=== PATIENT | female | born 1960 | race Hispanic/Latino ===

== ENCOUNTER 2017-08-22 04:27 | Emergency (ER) | payer OTHER ==
[2017-08-22 05:13] LABS: Basophils % (Auto) 0.4 % (0.0-1.8); Eosinophils % (Auto) 0.7 % (0.0-4.3); Hematocrit 38.6 % (30.3-42.9); Hemoglobin 13.3 gm/dl (10.1-14.3); Lymphocytes # (Auto) 2.2 K/mm3 (1.2-5.4); Lymphocytes % (Auto) 37.1 % (13.4-35.0); Mean Corpuscular HGB Conc 35 % (30-34); Mean Corpuscular Hemoglobin 31 pg (28-32); Mean Corpuscular Volume 90 fl (79-97); Monocytes # (Auto) 0.8 K/mm3 (0.0-0.8); Monocytes % (Auto) 12.6 % (0.0-7.3); Platelet Count 190 K/mm3 (140-440); Red Blood Count 4.27 M/mm3 (3.65-5.03)
[2017-08-22 05:16] LABS: BUN/Creatinine Ratio 17; Blood Urea Nitrogen 10 mg/dL (7-17); Calcium 8.8 mg/dL (8.4-10.2); Hemolysis Index 1
[2017-08-22] MEDS ORDERED: NACL 0.9% 1000 ML 1,000 ML IV ONE (06:46)
--- NOTE | 2017-08-22 07:03 | Emergency Department Report ---
HPI - General Chief Complaint: Medical Clearance Time Seen by Provider: 08/22/17 06:40 - HPI HPI: 57-year-old female presents to the emergency department from reports for evaluation of possible dehydration and possible altered mental status. The patient is at [facility] after being seen at [facility] for evaluation of her diabetes as well as uncontrolled bipolar symptoms. Apparently she was there for some type of delusional disorder and was diagnosed with acute psychosis by the facility. The notes from [facility] say that the patient had a few episodes yesterday where she began hyperventilating and was acting altered. They watched her for a while and did repeated vitals checks but when she continued to have the symptoms she was sent to the emergency department for further evaluation. She does appear to have a history of insulin-dependent diabetes. The patient herself currently says she does not know why she is here. She does appear with some cracked, chapped, dry lips and apparently has not been eating or drinking much recently. ED Past Medical Hx - Past Medical History Previous Medical History?: Yes Hx Diabetes: Yes - Social History Smoking Status: Never Smoker Substance Use Type: Prescribed ED Review of Systems ROS: Stated complaint: ANXIETY Other details as noted in HPI Comment: Unobtainable due to pts medical conditions Physical Exam - Physical Exam Vital Signs: Vital Signs 08/22/17 08/22/17 08/22/17 04:38 05:00 05:12 Temperature 99.4 F 99.4 F Pulse Rate 102 H 99 H Respiratory 19 20 Rate Blood Pressure 140/89 Blood Pressure 147/94 137/91 [Left] O2 Sat by Pulse 100 94 97 Oximetry 08/22/17 06:00 Temperature Pulse Rate Respiratory Rate Blood Pressure 124/84 Blood Pressure [Left] O2 Sat by Pulse 96 Oximetry Physical Exam: GENERAL: The patient is well-developed well-nourished. HENT: Normocephalic. Atraumatic. Patient has slightly dry mucous membranes and has cracked/chapped lips. Otherwise oropharynx is clear. EYES: Extraocular motions are intact. Pupils equal reactive to light bilaterally. NECK: Supple. Trachea is midline. CHEST/LUNGS: Clear to auscultation. There is no respiratory distress noted. HEART/CARDIOVASCULAR: Regular. There is no tachycardia. There is no murmur. ABDOMEN: Abdomen is soft, nontender. Patient has normal bowel sounds. There is no abdominal distention. SKIN: Skin is warm and dry. NEURO: The patient is awake, alert. The patient is cooperative. The patient has no focal neurologic deficits. The patient has normal speech. MUSCULOSKELETAL: There is no tenderness or deformity. There is no evidence of acute injury. ED Course Vital Signs 08/22/17 08/22/17 08/22/17 04:38 05:00 05:12 Temperature 99.4 F 99.4 F Pulse Rate 102 H 99 H Respiratory 19 20 Rate Blood Pressure 140/89 Blood Pressure 147/94 137/91 [Left] O2 Sat by Pulse 100 94 97 Oximetry 08/22/17 06:00 Temperature Pulse Rate Respiratory Rate Blood Pressure 124/84 Blood Pressure [Left] O2 Sat by Pulse 96 Oximetry ED Medical Decision Making - Lab Data Result diagrams: 08/22/17 04:50 08/22/17 04:50 - EKG Data -: EKG Interpreted by Ca EKG shows normal: sinus rhythm, axis, intervals, QRS complexes, ST-T waves Rate: normal - EKG Data When compared to previous EKG there are: previous EKG unavailable Interpretation: normal EKG - Radiology Data Radiology results: report reviewed CT HEAD WITHOUT CONTRAST: HISTORY: Altered mental status. TECHNIQUE: Sequential 2.5mm CT images. COMPARISON: none. FINDINGS: Cerebral Parenchyma: Within normal limits. Cerebellum: Within normal limits. Brainstem: Within normal limits. Ventricles: Normal. Sella: Normal. Extra-axial spaces: Normal. Basal Cisterns: Normal. Intracranial Hemorrhage: None. Midline Shift: None. Calvarium: Normal. Sinuses: Normal. Mastoid Air Cells: Normal. Visualized Orbits: Normal. IMPRESSION: Cranial CT scan within normal limits. Transcribed By: TTR Dictated By: DESTINEE WEISS JR, MD Electronically Authenticated By: DESTINEE WEISS JR, MD Signed Date/Time: 08/22/17 4703 - Medical Decision Making Patient is currently at [facility] for psychiatric treatment but was sent in as she has stopped eating or drinking and there was concerns for dehydration. As mentioned concern for altered mental status, I did a CT scan of the head without contrast that did not show any bleed, shift, mass or any acute process. Patient had some mild hyperglycemia but no signs of diabetic ketoacidosis. Rest the labs were mostly unremarkable. There is only trace ketones in the urine. An IV was placed and she was given a liter of IV fluid. After this the patient was seen drinking and eating a full meal. Vital signs stable throughout her ED course. She appears safe for discharge back to [facility] but they have been encouraged to return to the emergency Department with any worsening of her symptoms or any acute distress. - Differential Diagnosis bipolar, schizophrenia, dementia, dehydration Critical Care Time: No Critical care attestation.: If time is entered above; I have spent that time in minutes in the direct care of this critically ill patient, excluding procedure time. ED Disposition Clinical Impression: History of bipolar disorder, Medical clearance for psychiatric admission, Dehydration Disposition: DC/TX-65 PSY HOSP/PSY UNIT Is pt being admited?: No Condition: Stable Instructions: Dehydration (ED) Additional Instructions: These follow-up with a primary care physician once you are done with [facility]. Return to the emergency Department with any worsening of your symptoms or any acute distress. Increase your oral rehydration. Time of Disposition: 10:26
[2017-08-22 07:48] LABS: Bacteria,Urine 1+ /HPF (Negative); Bilirubin,Urine NEG (Negative); Blood,Urine MOD (Negative); Color,Urine Yellow (Yellow); Mucus,Urine 1+ /HPF; Protein,Urine <15 mg/dL mg/dL (Negative); Urobilinogen,Urine < 2.0 mg/dL (<2.0)
--- NOTE | 2017-08-22 07:53 | Cat Scan Report ---
CT HEAD WITHOUT CONTRAST: HISTORY: Altered mental status. TECHNIQUE: Sequential 2.5mm CT images. COMPARISON: none. FINDINGS: Cerebral Parenchyma: Within normal limits. Cerebellum: Within normal limits. Brainstem: Within normal limits. Ventricles: Normal. Sella: Normal. Extra-axial spaces: Normal. Basal Cisterns: Normal. Intracranial Hemorrhage: None. Midline Shift: None. Calvarium: Normal. Sinuses: Normal. Mastoid Air Cells: Normal. Visualized Orbits: Normal. IMPRESSION: Cranial CT scan within normal limits.
[2017-08-22 08:13] LABS: Amphetamine Screen,Urine PRESUMPTIVE NEGATIVE; Benzodiazepines Screen,Urine PRESUMPTIVE NEGATIVE; Cannabinoid Screen,Urine PRESUMPTIVE NEGATIVE; Cocaine Screen,Urine PRESUMPTIVE NEGATIVE; Methadone Screen,Urine PRESUMPTIVE NEGATIVE; Opiate Screen,Urine PRESUMPTIVE NEGATIVE
[2017-08-22 11:03] VITALS: BP 123/74
== END 2017-08-22 11:00 ==
LOC: ED 04:27
DX: E86.0 Dehydration (principal); F31.9 Bipolar disorder, unspecified; E11.9 Type 2 diabetes mellitus without complications; Z88.0 Allergy status to penicillin; Z79.899 Other long term (current) drug therapy
CPT/HCPCS: 36415; 70450; 80048; 80307; 81001; 82140; 84443; 84484; 85025; 93005; 93010; 96360; 99285; G0480; J7030; 80320

== ENCOUNTER 2018-01-23 17:28 | Inpatient (IN) | payer OTHER ==
--- NOTE | 2018-01-23 18:16 | Emergency Department Report ---
HPI - General Time Seen by Provider: 01/23/18 18:02 - HPI HPI: 57-year-old female presents to the emergency department from [facility] for a general medical evaluation. The patient is nonverbal and the staff member from [facility] says that is how the patient has been since she has been at their facility. Since the patient is nonverbal she is a poor historian. She has been seen here one time in the past when she was also at [facility] at that time, back in August of this year, and she was found to have some type of bipolar disorder and acute psychotic event at that time. It also appears the patient has history of diabetes. The patient was brought in because she was found to have some "knots" to the forehead and some areas of bruising. They think that she had falls prior to coming in to the facility but still wanted her to get checked out. ED Past Medical Hx - Past Medical History Hx Diabetes: Yes - Social History Smoking Status: Never Smoker Substance Use Type: Prescribed ED Review of Systems ROS: Stated complaint: AMS Other details as noted in HPI Comment: Unobtainable due to pts medical conditions Physical Exam - Physical Exam Physical Exam: GENERAL: The patient is well-nourished. HENT: Normocephalic. Atraumatic. Patient has moist mucous membranes. EYES: Extraocular motions are intact. Pupils equal reactive to light bilaterally. NECK: Supple. Trachea is midline. CHEST/LUNGS: Clear to auscultation. There is no respiratory distress noted. HEART/CARDIOVASCULAR: Regular. There is no tachycardia. There is no murmur. ABDOMEN: Abdomen is soft, nontender. Patient has normal bowel sounds. There is no abdominal distention. SKIN: Skin is warm and dry. Patient has a small amount expanding hematoma to the left forehead with a small abrasion over it. No current bleeding. NEURO: Patient is awake but is nonverbal and noncooperative. Withdraws to painful stimuli. MUSCULOSKELETAL: There is no obvious deformity. ED Medical Decision Making - Lab Data Result diagrams: 01/23/18 19:59 01/23/18 19:59 - EKG Data -: EKG Interpreted by Me EKG shows normal: sinus rhythm, axis, intervals (prolonged QT and QTC intervals) , QRS complexes (low-voltage), ST-T waves Rate: normal - EKG Data When compared to previous EKG there are: previous EKG unavailable Interpretation: other (sinus rhythm, prolonged QT and QTC intervals, low voltage. No ST elevation ME) - Radiology Data Radiology results: report reviewed, image reviewed interpreted by me: Chest x-ray does not show any acute process. There are no pleural effusions, obvious pneumonia and there is no pneumothorax. X-ray of the pelvis does not show any obvious fracture or dislocation or any other acute process. EXAM: CT CERVICAL SPINE WO CON HISTORY: fall TECHNIQUE: Axial helical imaging through the cervical spine with sagittal and coronal reformatted images obtained. Comparison: None FINDINGS: There is mild anterolisthesis of C7 on T1 secondary to degenerative facet change at this level. Bony alignment is otherwise normal. The vertebral heights are maintained. There is loss of height of the C6-C7 disc with associated degenerative endplate change. There is endplate osteophyte/disc complex formation at the C5-C6 and C6-C7 levels. There is multiple level degenerative facet change. Visualization detail of portions of the cervical canal is limited by artifact. The there is no evidence of fracture or posttraumatic subluxation Paraspinous soft tissues are unremarkable. IMPRESSION: 1. No evidence of fracture or posttraumatic subluxation of the cervical spine 2. Cervical spondylosis. Transcribed By: ED Dictated By: MESFIN JC MD Electronically Authenticated By: MESFIN JC MD Signed Date/Time: 01/23/181850 EXAM: CT HEAD/BRAIN WO CON HISTORY: fall, head trauma TECHNIQUE: 2.5 millimeter axial images from the skullbase to the vertex. Comparison: None FINDINGS: There is no evidence of an acute intracranial process, intracranial hemorrhage or mass effect. The ventricles are normal size. The visualized portions of the orbits, paranasal and mastoid sinuses are unremarkable. There is no evidence of fracture. IMPRESSION: 1. No evidence of an acute intracranial process, intracranial hemorrhage or mass effect. Transcribed By: ED Dictated By: MESFIN JC MD Electronically Authenticated By: MESFIN JC MD Signed Date/Time: 01/23/181844 - Medical Decision Making Patient was brought in for a medical clearance from her psychiatric facility after she was found to have some abrasions, hematomas and concerns for recent falls. CT of the head without contrast did not show any bleed, shift, mass or any other acute process. CT of the cervical spine also did not show any fracture, subluxation or any acute process. I also checked her out with a chest x-ray and pelvis x-ray which also did not show any fractures, dislocations or any acute process. Labs show hypokalemia significant for a potassium of 2.5. The patient did require some Ativan for some agitation. It is possible that this electrolyte abnormality could be the reason for her recent falls and/or weakness. She will be admitted to the hospital for further evaluation and has been accepted for admission by the hospitalist, Dr. Castillo. - Differential Diagnosis electrolyte abnormality, CVA, TIA, psychosis, dysrhythmia Critical Care Time: No Critical care attestation.: If time is entered above; I have spent that time in minutes in the direct care of this critically ill patient, excluding procedure time. ED Disposition Clinical Impression: Hypokalemia, Generalized weakness Falls Qualifiers: Encounter type: initial encounter Qualified Code(s): W19.XXXA - Unspecified fall, initial encounter Disposition: 09 OP ADMIT IP TO THIS HOSP Is pt being admited?: Yes Condition: Serious
--- NOTE | 2018-01-23 18:45 | Cat Scan Report ---
FINAL REPORT EXAM: CT HEAD/BRAIN WO CON HISTORY: fall, head trauma TECHNIQUE: 2.5 millimeter axial images from the skullbase to the vertex. Comparison: None FINDINGS: There is no evidence of an acute intracranial process, intracranial hemorrhage or mass effect. The ventricles are normal size. The visualized portions of the orbits, paranasal and mastoid sinuses are unremarkable. There is no evidence of fracture. IMPRESSION: 1. No evidence of an acute intracranial process, intracranial hemorrhage or mass effect.
--- NOTE | 2018-01-23 18:51 | Cat Scan Report ---
FINAL REPORT EXAM: CT CERVICAL SPINE WO CON HISTORY: fall TECHNIQUE: Axial helical imaging through the cervical spine with sagittal and coronal reformatted images obtained. Comparison: None FINDINGS: There is mild anterolisthesis of C7 on T1 secondary to degenerative facet change at this level. Bony alignment is otherwise normal. The vertebral heights are maintained. There is loss of height of the C6-C7 disc with associated degenerative endplate change. There is endplate osteophyte/disc complex formation at the C5-C6 and C6-C7 levels. There is multiple level degenerative facet change. Visualization detail of portions of the cervical canal is limited by artifact. The there is no evidence of fracture or posttraumatic subluxation Paraspinous soft tissues are unremarkable. IMPRESSION: 1. No evidence of fracture or posttraumatic subluxation of the cervical spine 2. Cervical spondylosis.
[2018-01-23] MEDS ORDERED: ATIVAN IM STA (19:25)
[2018-01-23] MEDS ORDERED: ATIVAN ONE (19:30)
[2018-01-23 20:16] LABS: Hematocrit 41.6 % (30.3-42.9); Hemoglobin 14.1 gm/dl (10.1-14.3); Mean Corpuscular HGB Conc 34 % (30-34); Mean Corpuscular Hemoglobin 31 pg (28-32); Mean Corpuscular Volume 92 fl (79-97); Platelet Count 253 K/mm3 (140-440)
[2018-01-23 20:28] LABS: BUN/Creatinine Ratio 22; Blood Urea Nitrogen 13 mg/dL (7-17); Calcium 9.7 mg/dL (8.4-10.2); Hemolysis Index 29
--- NOTE | 2018-01-23 20:30 | XRay Report ---
FINAL REPORT EXAM: XR PELVIS 1-2V HISTORY: fall TECHNIQUE: X-ray pelvis, one view Comparison: None FINDINGS: This study is somewhat degraded by obliquity of the image. There is no definite evidence of fracture or subluxation. The left SI joint is not well visualized due to obliquity of the image. There is evidence of degenerative change of the lower lumbar spine. The soft tissues are unremarkable. IMPRESSION: 1. Study somewhat degraded by obliquity of the image. 2. No definite evidence of fracture or subluxation. If there is a persistent clinical concern for fracture, CT imaging would be helpful. 3. Degenerative change lumbar spine.
--- NOTE | 2018-01-23 20:34 | XRay Report ---
FINAL REPORT EXAM: XR CHEST 1V AP HISTORY: fall TECHNIQUE: Frontal portable view of the chest Comparison: None FINDINGS: There is bilateral hypoinflation with crowding of the bronchovascular structures. There is no evidence of focal infiltrate, pneumothorax or pleural fluid collection. The cardiac silhouette is normal size. The thoracic aorta and bony structures are unremarkable. Visualization detail of the thoracic spine is limited. IMPRESSION: 1. No evidence of an acute pulmonary process. 2. Visualization detail of the thoracic spine is limited.
[2018-01-23] MEDS ORDERED: K-DUR PO ONE (20:48)
[2018-01-23] MEDS ORDERED: NACL 0.9% 1000 ML 1,000 ML IV ONE (21:40)
[2018-01-23] MEDS: KCL 10MEQ/100ML 10 MEQ/100 ML BAG IV SCH (22:30)
[2018-01-23] MEDS ORDERED: ZOFRAN IV PRN (22:30)
[2018-01-23] MEDS ORDERED: SODIUM CHLORIDE FLUSH SYRINGE 10 ML IV PRN (22:30)
--- NOTE | 2018-01-23 22:33 | History and Physical Report ---
History of Present Illness Date of examination: 01/23/18 History of present illness: 57-year-old woman was sent for more tablets for evaluation for fall. Patient was agitated in the ER, was given IV Ativan, she is now sedated, history and review of system is unobtainable PAST MEDICAL HISTORY: Unknown PAST SURGICAL HISTORY: Unknown SOCIAL HISTORY: Unknown FAMILY HISTORY: Unknown Medications and Allergies Allergies Allergy/AdvReac Type Severity Reaction Status Date / Time Penicillins Allergy Unknown Verified 08/22/17 04:35 Active Meds: Active Medications Potassium Chloride (Kcl 10meq/100ml) 10 meq in 100 mls @ 100 mls/hr IV Q1H ROCIO Stop: 01/23/18 22:59 Last Admin: 01/23/18 22:30 Dose: 100 mls/hr Sodium Chloride (Nacl 0.9% 1000 Ml) 1,000 mls @ 999 mls/hr IV BOLUS ONE Stop: 01/23/18 22:40 Last Admin: 01/23/18 22:30 Dose: 999 mls/hr Exam - Physical Exam Narrative exam: Gen. appearance: Patient lying in bed, no apparent distress HEENT: Normocephalic, atraumatic, pupils equally round and reactive to light, unable to do extraocular movement, and no sclericterus,. No JVD or thyromegaly or nodule,neck supple, no carotid bruit ,mucous membranes moist, no exudate or erythema Heart: S1, S2, regular rate and rhythm Lungs: Clear bilaterally, breathing comfortable Abdomen: Positive bowel sounds, soft nondistended, no organomegaly Extremity:no edema cyanosis, clubbing Skin: no rash, dry, warm Neuro: Sedated - Constitutional Vitals: Temp Pulse Resp BP Pulse Ox 98.3 F 104 H 20 108/72 98 01/23/18 18:44 01/23/18 18:44 01/23/18 19:39 01/23/18 18:44 01/23/18 19:39 Results - Labs CBC & Chem 7: 01/23/18 19:59 01/23/18 19:59 Labs: Abnormal lab results 01/23/18 01/23/18 Range/Units 19:59 19:59 RDW 13.0 L (13.2-15.2) % Potassium 2.5 L* (3.6-5.0) mmol/L Creatinine 0.6 L (0.7-1.2) mg/dL Glucose 54 L (65-100) mg/dL Total Creatine Kinase 1474 H (30-135) units/L - Imaging and Cardiology CT Scan - head: report reviewed Assessment and Plan C-spine, chest x-ray and pelvic x-ray negative Assessment Rhabdomyolysis Severe hypokalemia Plan Admit to medicine Start IV fluid, repeat potassium DVT prophylaxis
[2018-01-23] MEDS ORDERED: KCL 10MEQ/100ML 10 MEQ/100 ML BAG IV ONE (23:25)
[2018-01-24] MEDS: NACL 0.9% 1000 ML 1,000 ML IV SCH (01:40)
[2018-01-24] MEDS: KCL 10MEQ/100ML 10 MEQ/100 ML BAG IV SCH ×3 (01:46→04:49)
[2018-01-24] MEDS: KCL 20MEQ/100ML 20 MEQ/100 ML BAG IV SCH ×2 (01:50)
[2018-01-24 06:00] LABS: Basophils % (Auto) 0.3 % (0.0-1.8); Eosinophils # (Auto) 0.1 K/mm3 (0.0-0.4); Eosinophils % (Auto) 0.8 % (0.0-4.3); Hematocrit 39.3 % (30.3-42.9); Hemoglobin 13.5 gm/dl (10.1-14.3); Lymphocytes # (Auto) 2.7 K/mm3 (1.2-5.4); Lymphocytes % (Auto) 40.8 % (13.4-35.0); Mean Corpuscular HGB Conc 34 % (30-34); Mean Corpuscular Hemoglobin 31 pg (28-32); Mean Corpuscular Volume 91 fl (79-97); Monocytes # (Auto) 0.7 K/mm3 (0.0-0.8); Monocytes % (Auto) 10.5 % (0.0-7.3); Platelet Count 244 K/mm3 (140-440); Red Blood Count 4.32 M/mm3 (3.65-5.03); Red Cell Distribution Width 12.8 % (13.2-15.2)
[2018-01-24 06:21] LABS: BUN/Creatinine Ratio 26; Blood Urea Nitrogen 13 mg/dL (7-17); Calcium 9.1 mg/dL (8.4-10.2); Hemolysis Index 92
[2018-01-24] MEDS ORDERED: K-DUR PO NR ×2 (09:45→13:45)
--- NOTE | 2018-01-24 09:45 | Progress Note ---
Assessment and Plan Assessment and plan: Questionable fall. Pelvic and chest x-ray negative. Cervical spine and head CT negative. Rhabdomyolysis. Continue IV fluid hydration. Hypokalemia. Replete potassium. History Interval history: No new issues overnight. Hospitalist Physical - Constitutional Vitals: Temp Pulse Resp BP Pulse Ox 97.9 F 97 H 18 114/62 96 01/24/18 07:25 01/24/18 07:25 01/24/18 07:25 01/24/18 07:25 01/24/18 07:25 General appearance: Present: no acute distress, well-nourished - EENT Eyes: Present: PERRL, EOM intact ENT: hearing intact, clear oral mucosa, dentition normal - Neck Neck: Present: supple, normal ROM - Respiratory Respiratory effort: normal Respiratory: bilateral: CTA - Cardiovascular Rhythm: regular Heart Sounds: Present: S1 & S2. Absent: gallop, rub - Extremities Extremities: no ischemia, No edema, Full ROM - Abdominal General gastrointestinal: soft, non-tender, non-distended, normal bowel sounds - Integumentary Integumentary: Present: clear, warm, dry - Neurologic Neurologic: CNII-XII intact, moves all extremities Results - Labs CBC & Chem 7: 01/24/18 05:17 01/24/18 05:17 Labs: Laboratory Last Values WBC 6.7 K/mm3 (4.5-11.0) 01/24/18 05:17 RBC 4.32 M/mm3 (3.65-5.03) 01/24/18 05:17 Hgb 13.5 gm/dl (10.1-14.3) 01/24/18 05:17 Hct 39.3 % (30.3-42.9) 01/24/18 05:17 MCV 91 fl (79-97) 01/24/18 05:17 MCH 31 pg (28-32) 01/24/18 05:17 MCHC 34 % (30-34) 01/24/18 05:17 RDW 12.8 % (13.2-15.2) L 01/24/18 05:17 Plt Count 244 K/mm3 (140-440) 01/24/18 05:17 Lymph % (Auto) 40.8 % (13.4-35.0) H 01/24/18 05:17 [place] % (Auto) 10.5 % (0.0-7.3) H 01/24/18 05:17 Eos % (Auto) 0.8 % (0.0-4.3) 01/24/18 05:17 Baso % (Auto) 0.3 % (0.0-1.8) 01/24/18 05:17 Lymph # 2.7 K/mm3 (1.2-5.4) 01/24/18 05:17 [place] # 0.7 K/mm3 (0.0-0.8) 01/24/18 05:17 Eos # 0.1 K/mm3 (0.0-0.4) 01/24/18 05:17 Baso # 0.0 K/mm3 (0.0-0.1) 01/24/18 05:17 Seg Neutrophils % 47.6 % (40.0-70.0) 01/24/18 05:17 Seg Neutrophils # 3.2 K/mm3 (1.8-7.7) 01/24/18 05:17 Sodium 142 mmol/L (137-145) 01/24/18 05:17 Potassium 3.9 mmol/L (3.6-5.0) D 01/24/18 05:17 Chloride 102.0 mmol/L (98-107) 01/24/18 05:17 Carbon Dioxide 20 mmol/L (22-30) L 01/24/18 05:17 Anion Gap 24 mmol/L 01/24/18 05:17 BUN 13 mg/dL (7-17) 01/24/18 05:17 Creatinine 0.5 mg/dL (0.7-1.2) L 01/24/18 05:17 Estimated GFR > 60 ml/min 01/24/18 05:17 BUN/Creatinine Ratio 26 % 01/24/18 05:17 Glucose 143 mg/dL (65-100) H 01/24/18 05:17 POC Glucose 75 (70-105) 01/23/18 23:40 Calcium 9.1 mg/dL (8.4-10.2) 01/24/18 05:17 Total Creatine Kinase 1474 units/L (30-135) H 01/23/18 19:59 Troponin T < 0.010 ng/mL (0.00-0.029) 01/23/18 20:59
[2018-01-24] MEDS ORDERED: LOVENOX SUB-Q SCH (10:00)
[2018-01-24] MEDS: LOVENOX SUB-Q SCH (10:09)
[2018-01-24 18:11] LABS: BUN/Creatinine Ratio 20; Blood Urea Nitrogen 8 mg/dL (7-17); Calcium 8.3 mg/dL (8.4-10.2); Hemolysis Index 223
[2018-01-25 06:33] LABS: Basophils % (Auto) 0.5 % (0.0-1.8); Eosinophils # (Auto) 0.1 K/mm3 (0.0-0.4); Eosinophils % (Auto) 1.3 % (0.0-4.3); Hematocrit 39.5 % (30.3-42.9); Hemoglobin 13.5 gm/dl (10.1-14.3); Lymphocytes # (Auto) 2.6 K/mm3 (1.2-5.4); Lymphocytes % (Auto) 35.4 % (13.4-35.0); Mean Corpuscular HGB Conc 34 % (30-34); Mean Corpuscular Hemoglobin 31 pg (28-32); Mean Corpuscular Volume 92 fl (79-97); Monocytes # (Auto) 0.7 K/mm3 (0.0-0.8); Monocytes % (Auto) 8.8 % (0.0-7.3); Platelet Count 250 K/mm3 (140-440); Red Blood Count 4.31 M/mm3 (3.65-5.03); Red Cell Distribution Width 12.7 % (13.2-15.2)
[2018-01-25 06:56] LABS: BUN/Creatinine Ratio 15; Blood Urea Nitrogen 6 mg/dL (7-17); Calcium 8.8 mg/dL (8.4-10.2); Hemolysis Index 107
[2018-01-25] MEDS: LOVENOX SUB-Q SCH (10:38)
--- NOTE | 2018-01-25 13:19 | Progress Note ---
Assessment and Plan Assessment and plan: Questionable fall. Pelvic and chest x-ray negative. Cervical spine and head CT negative. Rhabdomyolysis. Continue IV fluid hydration. Hypokalemia. Replete potassium. Psychosis. Await psychiatric evaluation. History Interval history: No new issues overnight. Patient moves all extremities but does not follow commands and has unintelligible speech Hospitalist Physical - Constitutional Vitals: Temp Pulse Resp BP Pulse Ox 97.5 F L 88 22 121/77 97 01/25/18 04:51 01/25/18 04:51 01/24/18 23:16 01/25/18 04:51 01/25/18 04:51 General appearance: Present: no acute distress, well-nourished - EENT Eyes: Present: PERRL, EOM intact ENT: hearing intact, clear oral mucosa, dentition normal - Neck Neck: Present: supple, normal ROM - Respiratory Respiratory effort: normal Respiratory: bilateral: CTA - Cardiovascular Rhythm: regular Heart Sounds: Present: S1 & S2. Absent: gallop, rub - Extremities Extremities: no ischemia, No edema, Full ROM - Abdominal General gastrointestinal: soft, non-tender, non-distended, normal bowel sounds - Integumentary Integumentary: Present: clear, warm, dry - Neurologic Neurologic: CNII-XII intact, moves all extremities Results - Labs CBC & Chem 7: 01/25/18 05:50 01/25/18 05:50 Labs: Laboratory Last Values WBC 7.5 K/mm3 (4.5-11.0) 01/25/18 05:50 RBC 4.31 M/mm3 (3.65-5.03) 01/25/18 05:50 Hgb 13.5 gm/dl (10.1-14.3) 01/25/18 05:50 Hct 39.5 % (30.3-42.9) 01/25/18 05:50 MCV 92 fl (79-97) 01/25/18 05:50 MCH 31 pg (28-32) 01/25/18 05:50 MCHC 34 % (30-34) 01/25/18 05:50 RDW 12.7 % (13.2-15.2) L 01/25/18 05:50 Plt Count 250 K/mm3 (140-440) 01/25/18 05:50 Lymph % (Auto) 35.4 % (13.4-35.0) H 01/25/18 05:50 [place] % (Auto) 8.8 % (0.0-7.3) H 01/25/18 05:50 Eos % (Auto) 1.3 % (0.0-4.3) 01/25/18 05:50 Baso % (Auto) 0.5 % (0.0-1.8) 01/25/18 05:50 Lymph # 2.6 K/mm3 (1.2-5.4) 01/25/18 05:50 [place] # 0.7 K/mm3 (0.0-0.8) 01/25/18 05:50 Eos # 0.1 K/mm3 (0.0-0.4) 01/25/18 05:50 Baso # 0.0 K/mm3 (0.0-0.1) 01/25/18 05:50 Seg Neutrophils % 54.0 % (40.0-70.0) 01/25/18 05:50 Seg Neutrophils # 4.0 K/mm3 (1.8-7.7) 01/25/18 05:50 Sodium 142 mmol/L (137-145) 01/25/18 05:50 Potassium 3.7 mmol/L (3.6-5.0) 01/25/18 05:50 Chloride 104.1 mmol/L (98-107) 01/25/18 05:50 Carbon Dioxide 21 mmol/L (22-30) L 01/25/18 05:50 Anion Gap 21 mmol/L 01/25/18 05:50 BUN 6 mg/dL (7-17) L 01/25/18 05:50 Creatinine 0.4 mg/dL (0.7-1.2) L 01/25/18 05:50 Estimated GFR > 60 ml/min 01/25/18 05:50 BUN/Creatinine Ratio 15 % 01/25/18 05:50 Glucose 150 mg/dL (65-100) H 01/25/18 05:50 POC Glucose 75 (70-105) 01/23/18 23:40 Calcium 8.8 mg/dL (8.4-10.2) 01/25/18 05:50 Total Creatine Kinase 1474 units/L (30-135) H 01/23/18 19:59 Troponin T < 0.010 ng/mL (0.00-0.029) 01/23/18 20:59
--- NOTE | 2018-01-25 13:49 | Consultation ---
History of Present Illness - Reason for Consult Consult date: 01/25/18 Reason for consult: Mental Health Evaluation Requesting physician: BENITO CHUA - Chief Complaint Chief complaint: "The patient has garbled speech" - History of Present Psychiatric Illness 57-year-old female presents to the emergency department from [facility] for a general medical evaluation. Today the patient is in restraints with garbled speech during the assessment. Per her assigned nurse, the patient does eat her meals. The patient is a poor historian at this time. Medications and Allergies Allergies Allergy/AdvReac Type Severity Reaction Status Date / Time Penicillins Allergy Unknown Verified 08/22/17 04:35 Active Meds: Active Medications Acetaminophen (Tylenol) 650 mg PO Q4H PRN PRN Reason: Pain MILD(1-3)/Fever >100.5/MARCUS Enoxaparin Sodium (Lovenox) 40 mg SUB-Q QDAY@1000 ROCIO Last Admin: 01/25/18 10:38 Dose: 40 mg Sodium Chloride (Nacl 0.9% 1000 Ml) 1,000 mls @ 150 mls/hr IV DIRECT [facility] Last Admin: 01/24/18 01:40 Dose: 150 mls/hr Ondansetron HCl (Zofran) 4 mg IV Q8H PRN PRN Reason: Nausea And Vomiting Sodium Chloride (Sodium Chloride Flush Syringe 10 Ml) 10 ml IV BID ROCIO Sodium Chloride (Sodium Chloride Flush Syringe 10 Ml) 10 ml IV PRN PRN PRN Reason: LINE FLUSH Past psychiatric history - Past Medical History Past Medical History: other (Unable to obtain) Past Surgical History: Other (Unable to obtain) - past Psychiatric treatment and history psychiatric treatment history: Aug 2017 the patient was inpatient at [facility]. [facility]. - Social History Social history: other (Unable to obtain) Mental Status Exam - Vital signs Last Vital Signs Temp 97.5 F L 01/25/18 04:51 Pulse 88 01/25/18 13:00 Resp 22 01/24/18 23:16 BP 121/77 01/25/18 04:51 Pulse Ox 97 01/25/18 10:00 - Exam Narrative exam: Unable to complete the MSE because of the patient's condition. Results Result Diagrams: 01/25/18 05:50 01/25/18 05:50 Abnormal lab results 01/24/18 01/25/18 01/25/18 Range/Units 17:34 05:50 05:50 RDW 12.7 L (13.2-15.2) % Lymph % (Auto) 35.4 H (13.4-35.0) % [place] % (Auto) 8.8 H (0.0-7.3) % Sodium 136 L (137-145) mmol/L Carbon Dioxide 19 L 21 L (22-30) mmol/L BUN 6 L (7-17) mg/dL Creatinine 0.4 L 0.4 L (0.7-1.2) mg/dL Glucose 253 H 150 H (65-100) mg/dL Calcium 8.3 L (8.4-10.2) mg/dL All other labs normal. Assessment and Plan Assessment and plan: Impression: Today the patient is in restraints with garbled speech during the assessment. Recommendation/Plan: Gather collateral information and reassess the patient is 24 hours. Start Haldol 2 mg IM Q6hrs PRN for acute agitation. Continue to hydrate the patient.
[2018-01-25] MEDS: HALDOL IM PRN ×2 (16:33→23:40)
[2018-01-25] MEDS: NACL 0.9% 1000 ML 1,000 ML IV SCH (23:39)
[2018-01-25] MEDS: SODIUM CHLORIDE FLUSH SYRINGE 10 ML IV SCH (23:41)
[2018-01-26 07:07] LABS: Basophils % (Auto) 0.5 % (0.0-1.8); Eosinophils # (Auto) 0.1 K/mm3 (0.0-0.4); Eosinophils % (Auto) 1.5 % (0.0-4.3); Hematocrit 39.2 % (30.3-42.9); Hemoglobin 13.5 gm/dl (10.1-14.3); Lymphocytes # (Auto) 3.2 K/mm3 (1.2-5.4); Lymphocytes % (Auto) 49.8 % (13.4-35.0); Mean Corpuscular HGB Conc 35 % (30-34); Mean Corpuscular Hemoglobin 31 pg (28-32); Mean Corpuscular Volume 90 fl (79-97); Monocytes # (Auto) 0.6 K/mm3 (0.0-0.8); Monocytes % (Auto) 9.5 % (0.0-7.3); Platelet Count 254 K/mm3 (140-440); Red Blood Count 4.33 M/mm3 (3.65-5.03)
[2018-01-26] MEDS: NACL 0.9% 1000 ML 1,000 ML IV SCH ×2 (07:12→21:40)
[2018-01-26 07:22] LABS: BUN/Creatinine Ratio 8; Blood Urea Nitrogen 3 mg/dL (7-17); Calcium 9.1 mg/dL (8.4-10.2); Hemolysis Index 41
[2018-01-26] MEDS: LOVENOX SUB-Q SCH (10:48)
[2018-01-26] MEDS: SODIUM CHLORIDE FLUSH SYRINGE 10 ML IV SCH ×2 (10:48→21:42)
--- NOTE | 2018-01-26 13:29 | Progress Note ---
Assessment and Plan Assessment and plan: Psychosis. Psychiatry following. Haldol prn Questionable fall. Pelvic and chest x-ray negative. Cervical spine and head CT negative. Rhabdomyolysis. Continue IV fluid hydration. Hypokalemia. Replete potassium. History Interval history: No new issues overnight. Patient moves all extremities but does not follow commands and has unintelligible speech Hospitalist Physical - Constitutional Vitals: Temp Pulse Resp BP Pulse Ox 98.1 F 110 H 20 160/90 97 01/26/18 05:06 01/26/18 05:06 01/26/18 05:06 01/26/18 05:06 01/26/18 05:06 General appearance: Present: no acute distress, well-nourished - EENT Eyes: Present: PERRL, EOM intact ENT: hearing intact, clear oral mucosa, dentition normal - Neck Neck: Present: supple, normal ROM - Respiratory Respiratory effort: normal Respiratory: bilateral: CTA - Cardiovascular Rhythm: regular Heart Sounds: Present: S1 & S2. Absent: gallop, rub - Extremities Extremities: no ischemia, No edema, Full ROM - Abdominal General gastrointestinal: soft, non-tender, non-distended, normal bowel sounds - Integumentary Integumentary: Present: clear, warm, dry - Neurologic Neurologic: CNII-XII intact, moves all extremities Results - Labs CBC & Chem 7: 01/26/18 05:59 01/26/18 05:59 Labs: Laboratory Last Values WBC 6.5 K/mm3 (4.5-11.0) 01/26/18 05:59 RBC 4.33 M/mm3 (3.65-5.03) 01/26/18 05:59 Hgb 13.5 gm/dl (10.1-14.3) 01/26/18 05:59 Hct 39.2 % (30.3-42.9) 01/26/18 05:59 MCV 90 fl (79-97) 01/26/18 05:59 MCH 31 pg (28-32) 01/26/18 05:59 MCHC 35 % (30-34) H 01/26/18 05:59 RDW 13.0 % (13.2-15.2) L 01/26/18 05:59 Plt Count 254 K/mm3 (140-440) 01/26/18 05:59 Lymph % (Auto) 49.8 % (13.4-35.0) H 01/26/18 05:59 [place] % (Auto) 9.5 % (0.0-7.3) H 01/26/18 05:59 Eos % (Auto) 1.5 % (0.0-4.3) 01/26/18 05:59 Baso % (Auto) 0.5 % (0.0-1.8) 01/26/18 05:59 Lymph # 3.2 K/mm3 (1.2-5.4) 01/26/18 05:59 [place] # 0.6 K/mm3 (0.0-0.8) 01/26/18 05:59 Eos # 0.1 K/mm3 (0.0-0.4) 01/26/18 05:59 Baso # 0.0 K/mm3 (0.0-0.1) 01/26/18 05:59 Seg Neutrophils % 38.7 % (40.0-70.0) L 01/26/18 05:59 Seg Neutrophils # 2.5 K/mm3 (1.8-7.7) 01/26/18 05:59 Sodium 141 mmol/L (137-145) 01/26/18 05:59 Potassium 3.6 mmol/L (3.6-5.0) 01/26/18 05:59 Chloride 103.3 mmol/L (98-107) 01/26/18 05:59 Carbon Dioxide 22 mmol/L (22-30) 01/26/18 05:59 Anion Gap 19 mmol/L 01/26/18 05:59 BUN 3 mg/dL (7-17) L 01/26/18 05:59 Creatinine 0.4 mg/dL (0.7-1.2) L 01/26/18 05:59 Estimated GFR > 60 ml/min 01/26/18 05:59 BUN/Creatinine Ratio 8 % 01/26/18 05:59 Glucose 154 mg/dL (65-100) H 01/26/18 05:59 POC Glucose 75 (70-105) 01/23/18 23:40 Calcium 9.1 mg/dL (8.4-10.2) 01/26/18 05:59 Total Creatine Kinase 1474 units/L (30-135) H 01/23/18 19:59 Troponin T < 0.010 ng/mL (0.00-0.029) 01/23/18 20:59
--- NOTE | 2018-01-26 15:35 | Progress Note ---
Subjective - Reason for Consult Consult date: 01/26/18 Reason for consult: Psychiatry Follow-up - Chief Complaint Chief complaint: "The patient has garbled speech" 57-year-old female presents to the emergency department from [place] for a general medical evaluation. Today the patient is still in restraints with garbled speech during the assessment. She continue to keep her eyes closed tightly. Per the staff, the patient does eat some of her meals with assistance. The patient was given a prn medication for agitation last night. Mental Status Exam - Vital signs Last Vital Signs Temp 98.1 F 01/26/18 05:06 Pulse 110 H 01/26/18 05:06 Resp 20 01/26/18 05:06 BP 160/90 01/26/18 05:06 Pulse Ox 97 01/26/18 05:06 - Exam Narrative exam: MSE: Appearance: in a hospital gown Behavior: the patient's eyes closed tightly Speech: garbled speech Mood: unable to assess Affect: constricted Thought Process: unable to assess Thought Content: unable to assess Motor Activity: in restraints Cognition: awake Insight: unable to assess Judgment: unable to assess Assessment and Plan mpression: Unspecified Psychosis. Today the patient is still in restraints with garbled speech during the assessment. CK 492. DDx: Bipolar DO with psychosis, Schizophrenia Recommendation/Plan: Initiate 1013 with placement to inpatient psy services once medically clear. Start Zyprexa Zydis 5 mg PO HS for psychosis and Ativan 0.5 mg PO BID for anxiety. Continue Haldol 2 mg IM Q6hrs PRN for acute agitation. Attempted to discuss possible metabolic side effects of Zyprexa with patient. Continue to hydrate the patient. D/C restraints when not indicated. Monitor the patient for catatonia.
[2018-01-26] MEDS: ATIVAN PO SCH (21:41)
[2018-01-27 04:14] LABS: Basophils % (Auto) 0.4 % (0.0-1.8); Eosinophils # (Auto) 0.1 K/mm3 (0.0-0.4); Eosinophils % (Auto) 0.8 % (0.0-4.3); Hematocrit 39.4 % (30.3-42.9); Hemoglobin 13.7 gm/dl (10.1-14.3); Lymphocytes # (Auto) 2.4 K/mm3 (1.2-5.4); Lymphocytes % (Auto) 33.3 % (13.4-35.0); Mean Corpuscular HGB Conc 35 % (30-34); Mean Corpuscular Hemoglobin 31 pg (28-32); Mean Corpuscular Volume 89 fl (79-97); Monocytes # (Auto) 0.6 K/mm3 (0.0-0.8); Monocytes % (Auto) 8.9 % (0.0-7.3); Platelet Count 246 K/mm3 (140-440)
[2018-01-27 04:29] LABS: BUN/Creatinine Ratio 10; Blood Urea Nitrogen 4 mg/dL (7-17); Calcium 9.1 mg/dL (8.4-10.2); Hemolysis Index 1
[2018-01-27] MEDS: HALDOL IM PRN ×2 (05:00→12:01)
[2018-01-27] MEDS: NACL 0.9% 1000 ML 1,000 ML IV SCH ×2 (05:50→12:10)
[2018-01-27] MEDS: ATIVAN PO SCH ×2 (09:30→22:00)
[2018-01-27] MEDS: LOVENOX SUB-Q SCH (09:30)
[2018-01-27] MEDS: SODIUM CHLORIDE FLUSH SYRINGE 10 ML IV SCH ×3 (11:59→22:01)
--- NOTE | 2018-01-27 15:44 | Progress Note ---
Assessment and Plan Assessment and plan: Psychosis. Psychiatry following. Haldol prn Questionable fall. Pelvic and chest x-ray negative. Cervical spine and head CT negative. Rhabdomyolysis. Continue IV fluid hydration. Hypokalemia. Replete potassium. History Interval history: No new issues overnight. Patient moves all extremities but does not follow commands and has unintelligible speech Hospitalist Physical - Constitutional Vitals: Temp Pulse Resp BP Pulse Ox 98.7 F 102 H 22 156/96 96 01/27/18 00:32 01/27/18 00:32 01/27/18 00:32 01/27/18 00:32 01/27/18 00:32 General appearance: Present: no acute distress, well-nourished - EENT Eyes: Present: PERRL, EOM intact ENT: hearing intact, clear oral mucosa, dentition normal - Neck Neck: Present: supple, normal ROM - Respiratory Respiratory effort: normal Respiratory: bilateral: CTA - Cardiovascular Rhythm: regular Heart Sounds: Present: S1 & S2. Absent: gallop, rub - Extremities Extremities: no ischemia, No edema, Full ROM - Abdominal General gastrointestinal: soft, non-tender, non-distended, normal bowel sounds - Integumentary Integumentary: Present: clear, warm, dry - Neurologic Neurologic: CNII-XII intact, moves all extremities Results - Labs CBC & Chem 7: 01/27/18 03:55 01/27/18 03:55 Labs: Laboratory Last Values WBC 7.2 K/mm3 (4.5-11.0) 01/27/18 03:55 RBC 4.40 M/mm3 (3.65-5.03) 01/27/18 03:55 Hgb 13.7 gm/dl (10.1-14.3) 01/27/18 03:55 Hct 39.4 % (30.3-42.9) 01/27/18 03:55 MCV 89 fl (79-97) 01/27/18 03:55 MCH 31 pg (28-32) 01/27/18 03:55 MCHC 35 % (30-34) H 01/27/18 03:55 RDW 13.0 % (13.2-15.2) L 01/27/18 03:55 Plt Count 246 K/mm3 (140-440) 01/27/18 03:55 Lymph % (Auto) 33.3 % (13.4-35.0) 01/27/18 03:55 [place] % (Auto) 8.9 % (0.0-7.3) H 01/27/18 03:55 Eos % (Auto) 0.8 % (0.0-4.3) 01/27/18 03:55 Baso % (Auto) 0.4 % (0.0-1.8) 01/27/18 03:55 Lymph # 2.4 K/mm3 (1.2-5.4) 01/27/18 03:55 [place] # 0.6 K/mm3 (0.0-0.8) 01/27/18 03:55 Eos # 0.1 K/mm3 (0.0-0.4) 01/27/18 03:55 Baso # 0.0 K/mm3 (0.0-0.1) 01/27/18 03:55 Seg Neutrophils % 56.6 % (40.0-70.0) 01/27/18 03:55 Seg Neutrophils # 4.1 K/mm3 (1.8-7.7) 01/27/18 03:55 Sodium 140 mmol/L (137-145) 01/27/18 03:55 Potassium 3.1 mmol/L (3.6-5.0) L 01/27/18 03:55 Chloride 100.5 mmol/L (98-107) 01/27/18 03:55 Carbon Dioxide 24 mmol/L (22-30) 01/27/18 03:55 Anion Gap 19 mmol/L 01/27/18 03:55 BUN 4 mg/dL (7-17) L 01/27/18 03:55 Creatinine 0.4 mg/dL (0.7-1.2) L 01/27/18 03:55 Estimated GFR > 60 ml/min 01/27/18 03:55 BUN/Creatinine Ratio 10 % 01/27/18 03:55 Glucose 215 mg/dL (65-100) H 01/27/18 03:55 POC Glucose 75 (70-105) 01/23/18 23:40 Calcium 9.1 mg/dL (8.4-10.2) 01/27/18 03:55 Total Creatine Kinase 492 units/L (30-135) H 01/26/18 16:27 Troponin T < 0.010 ng/mL (0.00-0.029) 01/23/18 20:59
[2018-01-27] MEDS ORDERED: K-DUR PO ONE (16:00)
--- NOTE | 2018-01-27 16:50 | Progress Note ---
Subjective - Reason for Consult Consult date: 01/27/18 Reason for consult: Psychiatric Follow-up Evaluation - Chief Complaint Chief complaint: Patient asleep Patient is a 57-year-old female presents to the emergency department from [place] for a general medical evaluation. Today the patient is still in restraints. Patient is asleep. Although several attempts were made, patient refused to speak with provider. Per sitbarb and RN patient received a PRN earlier for agitation. Per sitter patient was attempting to get out of bed, pulling out IV's, and pulling down medication off IV pole. Per the staff, the patient does eat some of her meals with assistance. Provider unable to fully assess. Mental Status Exam - Vital signs Last Vital Signs Temp 98.7 F 01/27/18 00:32 Pulse 102 H 01/27/18 00:32 Resp 22 01/27/18 00:32 BP 156/96 01/27/18 00:32 Pulse Ox 96 01/27/18 00:32 - Exam Narrative exam: Mental Status Exam General Appearance: Causally Dressed-hospital gown, ADL's are being completed with assistance from staff, in restraints Eye Contact: None Orientation: Unable to Assess Attitude/Behavior: Unable to Assess Sensorium: Unable to Assess Psychomotor & Musculoskeletal Activity: Laying in bed Mood: Unable to Assess Affect: Unable to Assess Speech/Language: Unable to Assess Thought Processes: Unable to Assess Thought Content: Unable to Assess Perception: Unable to Assess Concentration/Attention: Unable to Assess Suicidal Ideations/Plan: Patient denies. Homicidal Ideations/Plan: Patient denies. Judgment: Poor Insight: Poor Assessment and Plan Impression: Unspecified Psychosis. Today the patient is still in restraints with garbled speech during the assessment. CK 492. Patient is asleep. Although several attempts were made, patient refused to awake for the assessment. Per staff patient has been agitated and received a PRN for agitation. DDx: Bipolar DO with psychosis, Schizophrenia Recommendation/Plan: 1. Continue 1013 with placement to inpatient psy services once medically clear. 2. Continue Zyprexa Zydis 5 mg PO HS for psychosis and Ativan 0.5 mg PO BID for anxiety. Continue Haldol 2 mg IM Q6hrs PRN for acute agitation. Attempted to discuss possible metabolic side effects of Zyprexa with patient. Continue to hydrate the patient. D/C restraints when not indicated. Monitor the patient for catatonia. 3. Will continue to monitor mood, psychosis, sleep, appetite, agitation, compliance, and side effects.
[2018-01-28] MEDS: NACL 0.9% 1000 ML 1,000 ML IV SCH ×3 (01:00→15:37)
[2018-01-28] MEDS ORDERED: APRESOLINE IV PRN (06:25)
[2018-01-28 08:27] LABS: BUN/Creatinine Ratio 10; Blood Urea Nitrogen 4 mg/dL (7-17); Calcium 9.4 mg/dL (8.4-10.2); Hemolysis Index 69
[2018-01-28] MEDS: SODIUM CHLORIDE FLUSH SYRINGE 10 ML IV SCH ×3 (09:44→21:34)
[2018-01-28] MEDS: ATIVAN PO SCH ×2 (09:45→21:33)
[2018-01-28] MEDS: LOVENOX SUB-Q SCH (09:46)
--- NOTE | 2018-01-28 14:22 | Progress Note ---
Assessment and Plan Assessment and plan: Psychosis. Psychiatry following. Haldol prn Persistent Tachycardia. ? Etiology. Check EKG. Consider ECHO and cardiology consultation Questionable fall. Pelvic and chest x-ray negative. Cervical spine and head CT negative. Rhabdomyolysis. Continue IV fluid hydration. Hypokalemia. Replete potassium. History Interval history: No new issues overnight. Hospitalist Physical - Constitutional Vitals: Temp Pulse Resp BP Pulse Ox 98.5 F 133 H 20 154/84 93 01/28/18 12:10 01/28/18 12:10 01/28/18 12:10 01/28/18 12:10 01/28/18 12:10 General appearance: Present: no acute distress, well-nourished - EENT Eyes: Present: PERRL, EOM intact ENT: hearing intact, clear oral mucosa, dentition normal - Neck Neck: Present: supple, normal ROM - Respiratory Respiratory effort: normal Respiratory: bilateral: CTA - Cardiovascular Rhythm: regular Heart Sounds: Present: S1 & S2. Absent: gallop, rub - Extremities Extremities: no ischemia, No edema, Full ROM - Abdominal General gastrointestinal: soft, non-tender, non-distended, normal bowel sounds - Integumentary Integumentary: Present: clear, warm, dry - Neurologic Neurologic: CNII-XII intact, moves all extremities Results - Labs CBC & Chem 7: 01/27/18 03:55 01/28/18 07:30 Labs: Laboratory Last Values WBC 7.2 K/mm3 (4.5-11.0) 01/27/18 03:55 RBC 4.40 M/mm3 (3.65-5.03) 01/27/18 03:55 Hgb 13.7 gm/dl (10.1-14.3) 01/27/18 03:55 Hct 39.4 % (30.3-42.9) 01/27/18 03:55 MCV 89 fl (79-97) 01/27/18 03:55 MCH 31 pg (28-32) 01/27/18 03:55 MCHC 35 % (30-34) H 01/27/18 03:55 RDW 13.0 % (13.2-15.2) L 01/27/18 03:55 Plt Count 246 K/mm3 (140-440) 01/27/18 03:55 Lymph % (Auto) 33.3 % (13.4-35.0) 01/27/18 03:55 [place] % (Auto) 8.9 % (0.0-7.3) H 01/27/18 03:55 Eos % (Auto) 0.8 % (0.0-4.3) 01/27/18 03:55 Baso % (Auto) 0.4 % (0.0-1.8) 01/27/18 03:55 Lymph # 2.4 K/mm3 (1.2-5.4) 01/27/18 03:55 [place] # 0.6 K/mm3 (0.0-0.8) 01/27/18 03:55 Eos # 0.1 K/mm3 (0.0-0.4) 01/27/18 03:55 Baso # 0.0 K/mm3 (0.0-0.1) 01/27/18 03:55 Seg Neutrophils % 56.6 % (40.0-70.0) 01/27/18 03:55 Seg Neutrophils # 4.1 K/mm3 (1.8-7.7) 01/27/18 03:55 Sodium 140 mmol/L (137-145) 01/28/18 07:30 Potassium 3.9 mmol/L (3.6-5.0) D 01/28/18 07:30 Chloride 105.8 mmol/L (98-107) 01/28/18 07:30 Carbon Dioxide 17 mmol/L (22-30) L D 01/28/18 07:30 Anion Gap 21 mmol/L 01/28/18 07:30 BUN 4 mg/dL (7-17) L 01/28/18 07:30 Creatinine 0.4 mg/dL (0.7-1.2) L 01/28/18 07:30 Estimated GFR > 60 ml/min 01/28/18 07:30 BUN/Creatinine Ratio 10 % 01/28/18 07:30 Glucose 196 mg/dL (65-100) H 01/28/18 07:30 POC Glucose 75 (70-105) 01/23/18 23:40 Calcium 9.4 mg/dL (8.4-10.2) 01/28/18 07:30 Total Creatine Kinase 492 units/L (30-135) H 01/26/18 16:27 Troponin T < 0.010 ng/mL (0.00-0.029) 01/23/18 20:59
--- NOTE | 2018-01-28 19:53 | Progress Note ---
Subjective - Reason for Consult Consult date: 01/28/18 Reason for consult: follow up - Chief Complaint Chief complaint: mumbling Patient is a 57-year-old female presents to the emergency department from [place] for a general medical evaluation. Today the patient is still in restraints. Patient has her eyes open and mumbles in response. Staff report she was trying to take her IV out. Per the staff, the patient does eat some of her meals with assistance. Unable to assess for additional information. Mental Status Exam - Vital signs Last Vital Signs Temp 98.5 F 01/28/18 19:10 Pulse 117 H 01/28/18 19:10 Resp 20 01/28/18 19:10 BP 149/95 01/28/18 19:10 Pulse Ox 96 01/28/18 19:10 - Exam Narrative exam: General Appearance: Causally Dressed-hospital gown, ADL's are being completed with assistance from staff, in restraints Eye Contact: fair Orientation: Unable to Assess Attitude/Behavior: Unable to Assess Sensorium: Unable to Assess Psychomotor & Musculoskeletal Activity: no abnormal movements observed Mood: Unable to Assess Affect: Unable to Assess Speech/Language: Unable to Assess Thought Processes: Unable to Assess Thought Content: Unable to Assess Perception: Unable to Assess Concentration/Attention: Unable to Assess Suicidal Ideations/Plan: Patient denies. Homicidal Ideations/Plan: Patient denies. Judgment: Poor Insight: Poor Assessment and Plan Impression: Unspecified Psychosis. Today the patient is still in restraints with garbled speech during the assessment. CK 492 on 01/26/2018, down from 1474 on 01/23/2018. DDx: Bipolar DO with psychosis, Schizophrenia Recommendation/Plan: Continue 1013 with placement to inpatient psy services once medically clear. Continue Zyprexa Zydis 5 mg PO HS for psychosis and Ativan 0.5 mg PO BID for anxiety. Continue Haldol 2 mg IM Q6hrs PRN for acute agitation. Attempted to discuss possible metabolic side effects of Zyprexa with patient. Continue to hydrate the patient. D/C restraints when not indicated. Monitor the patient for catatonia.
[2018-01-29] MEDS: ATIVAN PO SCH ×2 (09:27→21:12)
[2018-01-29] MEDS: LOVENOX SUB-Q SCH (09:27)
[2018-01-29] MEDS: SODIUM CHLORIDE FLUSH SYRINGE 10 ML IV SCH ×2 (09:27→21:12)
--- NOTE | 2018-01-29 10:58 | Progress Note ---
Subjective - Reason for Consult Consult date: 01/29/18 Reason for consult: Psychiatry Follow-up - Chief Complaint Chief complaint: "The patient mumbles" Patient is a 57-year-old female presents to the emergency department from [place] for a general medical evaluation. Today the patient is still in restraints, but her eyes are open during the assessment. She continue to mumble when asked questions, possibly responding to some type of stimuli. She did respond to a simple command to squeeze my finger. Per the staff, the patient does eat some of her meals with assistance. No gestures of SI/HI's. Mental Status Exam - Vital signs Last Vital Signs Temp 98.1 F 01/29/18 09:16 Pulse 122 H 01/29/18 09:16 Resp 20 01/29/18 09:16 BP 158/96 01/29/18 09:16 Pulse Ox 90 01/29/18 09:16 - Exam Narrative exam: MSE: Appearance: in a hospital gown Behavior: eyes are open Speech: mumbles Mood: unable to assess Affect: constricted Thought Process: unable to assess Thought Content: unable to assess Motor Activity: in restraints Cognition: awake Insight: unable to assess Judgment: unable to assess Assessment and Plan Impression: Unspecified Psychosis. Today the patient is still in restraints, but her eyes are during the assessment. DDx: Bipolar DO with psychosis, Schizophrenia Recommendation/Plan: Continue 1013 with placement to inpatient psy services once medically clear. Continue Zyprexa Zydis 5 mg PO HS for psychosis, Ativan 0.5 mg PO BID for anxiety, and Haldol 2 mg IM Q6hrs PRN for acute agitation. Attempted to discuss possible metabolic side effects of Zyprexa with patient. Continue to hydrate the patient. D/C restraints when not indicated. Monitor the patient for catatonia.
--- NOTE | 2018-01-29 12:39 | Progress Note ---
Assessment and Plan Assessment and plan: Bipolar/Schizophrenia/Psychosis. Psychiatry following. Haldol prn. Cont 1013 Persistent Tachycardia. ? Etiology. Check EKG. Consider ECHO and cardiology consultation Questionable fall. Pelvic and chest x-ray negative. Cervical spine and head CT negative. Rhabdomyolysis. Continue IV fluid hydration. Hypokalemia. Replete potassium. History Interval history: No new issues overnight. Hospitalist Physical - Constitutional Vitals: Temp Pulse Resp BP Pulse Ox 98.1 F 122 H 20 158/96 90 01/29/18 09:16 01/29/18 09:16 01/29/18 09:16 01/29/18 09:16 01/29/18 09:16 General appearance: Present: no acute distress, well-nourished - EENT Eyes: Present: PERRL, EOM intact ENT: hearing intact, clear oral mucosa, dentition normal - Neck Neck: Present: supple, normal ROM - Respiratory Respiratory effort: normal Respiratory: bilateral: CTA - Cardiovascular Rhythm: regular Heart Sounds: Present: S1 & S2. Absent: gallop, rub - Extremities Extremities: no ischemia, No edema, Full ROM - Abdominal General gastrointestinal: soft, non-tender, non-distended, normal bowel sounds - Integumentary Integumentary: Present: clear, warm, dry - Neurologic Neurologic: CNII-XII intact, moves all extremities Results - Labs CBC & Chem 7: 01/27/18 03:55 01/28/18 07:30 Labs: Laboratory Last Values WBC 7.2 K/mm3 (4.5-11.0) 01/27/18 03:55 RBC 4.40 M/mm3 (3.65-5.03) 01/27/18 03:55 Hgb 13.7 gm/dl (10.1-14.3) 01/27/18 03:55 Hct 39.4 % (30.3-42.9) 01/27/18 03:55 MCV 89 fl (79-97) 01/27/18 03:55 MCH 31 pg (28-32) 01/27/18 03:55 MCHC 35 % (30-34) H 01/27/18 03:55 RDW 13.0 % (13.2-15.2) L 01/27/18 03:55 Plt Count 246 K/mm3 (140-440) 01/27/18 03:55 Lymph % (Auto) 33.3 % (13.4-35.0) 01/27/18 03:55 [place] % (Auto) 8.9 % (0.0-7.3) H 01/27/18 03:55 Eos % (Auto) 0.8 % (0.0-4.3) 01/27/18 03:55 Baso % (Auto) 0.4 % (0.0-1.8) 01/27/18 03:55 Lymph # 2.4 K/mm3 (1.2-5.4) 01/27/18 03:55 [place] # 0.6 K/mm3 (0.0-0.8) 01/27/18 03:55 Eos # 0.1 K/mm3 (0.0-0.4) 01/27/18 03:55 Baso # 0.0 K/mm3 (0.0-0.1) 01/27/18 03:55 Seg Neutrophils % 56.6 % (40.0-70.0) 01/27/18 03:55 Seg Neutrophils # 4.1 K/mm3 (1.8-7.7) 01/27/18 03:55 Sodium 140 mmol/L (137-145) 01/28/18 07:30 Potassium 3.9 mmol/L (3.6-5.0) D 01/28/18 07:30 Chloride 105.8 mmol/L (98-107) 01/28/18 07:30 Carbon Dioxide 17 mmol/L (22-30) L D 01/28/18 07:30 Anion Gap 21 mmol/L 01/28/18 07:30 BUN 4 mg/dL (7-17) L 01/28/18 07:30 Creatinine 0.4 mg/dL (0.7-1.2) L 01/28/18 07:30 Estimated GFR > 60 ml/min 01/28/18 07:30 BUN/Creatinine Ratio 10 % 01/28/18 07:30 Glucose 196 mg/dL (65-100) H 01/28/18 07:30 POC Glucose 75 (70-105) 01/23/18 23:40 Calcium 9.4 mg/dL (8.4-10.2) 01/28/18 07:30 Total Creatine Kinase 492 units/L (30-135) H 01/26/18 16:27 Troponin T < 0.010 ng/mL (0.00-0.029) 01/23/18 20:59
--- NOTE | 2018-01-29 14:23 | Consultation ---
History of Present Illness Consult date: 01/29/18 Consult reason: tachycardia History of present illness: This is a 57 year old woman who was brought from [place] with abrasions on her forehead from a fall. Head CT scan reports no acute intracranial process. A cardiac consultation was requested for abnormal ECG. Patient is nonverbal, unable to obtain history. The ECG is a sinus tachycardia, no acute ischemic changes. She remains afebrile. WBC is normal. Chest x-ray is negative. Sitter at bedside reports the patient has intermittent episodes of agitation. Bilateral wrist restraints are in place. Past History Past Medical History: other (Unable to obtain) Past Surgical History: Other (Unable to obtain) Social history: other (Unable to obtain) Medications and Allergies Allergies Allergy/AdvReac Type Severity Reaction Status Date / Time Penicillins Allergy Unknown Verified 08/22/17 04:35 Active Meds: Active Medications Acetaminophen (Tylenol) 650 mg PO Q4H PRN PRN Reason: Pain MILD(1-3)/Fever >100.5/MARCUS Enoxaparin Sodium (Lovenox) 40 mg SUB-Q QDAY@1000 [facility] Last Admin: 01/29/18 09:27 Dose: 40 mg Haloperidol Lactate (Haldol) 2 mg IM Q6H PRN PRN Reason: Agitation Last Admin: 01/27/18 12:01 Dose: 2 mg Hydralazine HCl (Apresoline) 5 mg IV Q6H PRN PRN Reason: Hypertension Last Admin: 01/28/18 06:47 Dose: 5 mg Sodium Chloride (Nacl 0.9% 1000 Ml) 1,000 mls @ 150 mls/hr IV DIRECT [facility] Last Admin: 01/28/18 15:37 Dose: 150 mls/hr Lorazepam (Ativan) 0.5 mg PO BID [facility] Last Admin: 01/29/18 09:27 Dose: 0.5 mg Olanzapine (Zyprexa Zydis) 5 mg PO HS [facility] Last Admin: 01/28/18 21:34 Dose: 5 mg Ondansetron HCl (Zofran) 4 mg IV Q8H PRN PRN Reason: Nausea And Vomiting Sodium Chloride (Sodium Chloride Flush Syringe 10 Ml) 10 ml IV BID [facility] Last Admin: 01/29/18 09:27 Dose: 10 ml Sodium Chloride (Sodium Chloride Flush Syringe 10 Ml) 10 ml IV PRN PRN PRN Reason: LINE FLUSH Physical Examination Vital Signs Pulse Resp 107 H 27 H 01/23/18 17:43 01/23/18 17:43 General appearance: no acute distress Cardiac: Positive: Tachycardia Results 01/27/18 03:55 01/28/18 07:30 Assessment and Plan Recent fall Hypertension Sinus tachycardia Elevated glucose Psychosis Check a TSH and magnesium. An echocardiogram has been ordered by the primary hospitalist.
[2018-01-30] MEDS: ATIVAN PO SCH ×2 (11:00→22:17)
[2018-01-30] MEDS: LOVENOX SUB-Q SCH (11:00)
[2018-01-30] MEDS: SODIUM CHLORIDE FLUSH SYRINGE 10 ML IV SCH ×2 (11:00→22:17)
--- NOTE | 2018-01-30 13:33 | Progress Note ---
Assessment and Plan - Patient Problems (1) Sinus tachycardia Current Visit: Yes Status: Acute Plan to address problem: Sinus tachycardia since physiologic response to current state of agitation, and requires no specific cardiac workup or management. Sinus rates should return to normal with resolution of acute psychiatric illness. (2) Hypertension Current Visit: Yes Status: Acute Plan to address problem: We'll treat hypertension with a beta joo, metoprolol 50 mg twice a day. Subjective Date of service: 01/30/18 Interval history: The patient has severe psychiatric illness, and is in a state of agitation, on 4 POINT RESTRAINTS. In this setting, she has developed a persistent mild sinus tachycardia, EKG shows no acute ST or T-wave abnormalities. There are no cardiac symptoms, but her blood pressure appears intermittently elevated. Objective Vital Signs Temp Pulse Resp BP BP Pulse Ox 01/29/18 23:42 98.5 F 88 18 108/76 97 01/29/18 20:01 98.6 F 120 H 20 167/96 94 01/29/18 20:00 119 H 01/29/18 14:57 130 H 178/88 - Physical Examination General: Other (agitated state due to psychiatric illness) HEENT: Positive: PERRL Neck: Positive: neck supple Cardiac: Positive: Regular Rhythm Lungs: Positive: Decreased Breath Sounds Neuro: Positive: Grossly Intact Abdomen: Positive: Soft Skin: Positive: Clear Extremities: Absent: edema
--- NOTE | 2018-01-30 14:38 | Progress Note ---
Subjective - Reason for Consult Consult date: 01/30/18 Reason for consult: Psychiatry Follow-up - Chief Complaint Chief complaint: "The patient is " Patient is a 57-year-old female presents to the emergency department from [place] for a general medical evaluation. Today the patient is still in restraints. She continues to mumbles (intermittently). The patient's eyes are open during the assessment. She was observed eating her lunch with assistance. No gestures of SI/HI's. Mental Status Exam - Vital signs Last Vital Signs Temp 98.5 F 01/29/18 23:42 Pulse 88 01/29/18 23:42 Resp 18 01/29/18 23:42 BP 108/76 01/29/18 23:42 Pulse Ox 97 01/29/18 23:42 - Exam Narrative exam: MSE: Appearance: in a hospital gown Behavior: eyes are open Speech: mumbles intermittently Mood: unable to assess Affect: flat Thought Process: unable to assess Thought Content: unable to assess Motor Activity: in restraints Cognition: awake Insight: unable to assess Judgment: unable to assess Assessment and Plan Impression: Unspecified Psychosis. Today the patient is still in restraints, but her eyes are open during the assessment. DDx: Bipolar DO with psychosis, Schizophrenia Recommendation/Plan: Continue 1013 with placement to inpatient psy services once medically clear. Increase Zyprexa Zydis to 10 mg PO HS for psychosis, and continue Ativan 0.5 mg PO BID for anxiety, and Haldol 2 mg IM Q6hrs PRN for acute agitation. Attempted to discuss possible metabolic side effects of Zyprexa with patient. Continue to hydrate the patient. D/C restraints when not indicated. Monitor the patient for catatonia.
[2018-01-30] MEDS: LOPRESSOR PO SCH ×2 (17:00→22:18)
--- NOTE | 2018-01-30 17:20 | Progress Note ---
Assessment and Plan Assessment and plan: Bipolar/Schizophrenia/Psychosis. Psychiatry following. Haldol prn. Cont 1013 per Psych Sinus Tachycardia. Etiology physiologic response secondary to agitation Questionable fall. Pelvic and chest x-ray negative. Cervical spine and head CT negative. Rhabdomyolysis. Continue IV fluid hydration. Hypokalemia. Replete potassium. Disposition Pt is medically clear for psych discharge History Interval history: No new issues overnight. Hospitalist Physical - Constitutional Vitals: Temp Pulse Resp BP Pulse Ox 98.2 F 111 H 18 159/89 90 01/30/18 13:19 01/30/18 16:34 01/30/18 13:19 01/30/18 13:19 01/30/18 16:34 General appearance: Present: no acute distress - EENT Eyes: Present: PERRL, EOM intact ENT: hearing intact, clear oral mucosa, dentition normal - Neck Neck: Present: supple, normal ROM - Respiratory Respiratory effort: normal Respiratory: bilateral: CTA - Cardiovascular Rhythm: regular Heart Sounds: Present: S1 & S2. Absent: gallop, rub - Extremities Extremities: no ischemia, No edema, Full ROM - Abdominal General gastrointestinal: soft, non-tender, non-distended, normal bowel sounds - Integumentary Integumentary: Present: clear, warm, dry - Neurologic Neurologic: CNII-XII intact, moves all extremities Results - Labs CBC & Chem 7: 01/27/18 03:55 01/28/18 07:30 Labs: Laboratory Last Values WBC 7.2 K/mm3 (4.5-11.0) 01/27/18 03:55 RBC 4.40 M/mm3 (3.65-5.03) 01/27/18 03:55 Hgb 13.7 gm/dl (10.1-14.3) 01/27/18 03:55 Hct 39.4 % (30.3-42.9) 01/27/18 03:55 MCV 89 fl (79-97) 01/27/18 03:55 MCH 31 pg (28-32) 01/27/18 03:55 MCHC 35 % (30-34) H 01/27/18 03:55 RDW 13.0 % (13.2-15.2) L 01/27/18 03:55 Plt Count 246 K/mm3 (140-440) 01/27/18 03:55 Lymph % (Auto) 33.3 % (13.4-35.0) 01/27/18 03:55 [place] % (Auto) 8.9 % (0.0-7.3) H 01/27/18 03:55 Eos % (Auto) 0.8 % (0.0-4.3) 01/27/18 03:55 Baso % (Auto) 0.4 % (0.0-1.8) 01/27/18 03:55 Lymph # 2.4 K/mm3 (1.2-5.4) 01/27/18 03:55 [place] # 0.6 K/mm3 (0.0-0.8) 01/27/18 03:55 Eos # 0.1 K/mm3 (0.0-0.4) 01/27/18 03:55 Baso # 0.0 K/mm3 (0.0-0.1) 01/27/18 03:55 Seg Neutrophils % 56.6 % (40.0-70.0) 01/27/18 03:55 Seg Neutrophils # 4.1 K/mm3 (1.8-7.7) 01/27/18 03:55 Sodium 140 mmol/L (137-145) 01/28/18 07:30 Potassium 3.9 mmol/L (3.6-5.0) D 01/28/18 07:30 Chloride 105.8 mmol/L (98-107) 01/28/18 07:30 Carbon Dioxide 17 mmol/L (22-30) L D 01/28/18 07:30 Anion Gap 21 mmol/L 01/28/18 07:30 BUN 4 mg/dL (7-17) L 01/28/18 07:30 Creatinine 0.4 mg/dL (0.7-1.2) L 01/28/18 07:30 Estimated GFR > 60 ml/min 01/28/18 07:30 BUN/Creatinine Ratio 10 % 01/28/18 07:30 Glucose 196 mg/dL (65-100) H 01/28/18 07:30 POC Glucose 75 (70-105) 01/23/18 23:40 Calcium 9.4 mg/dL (8.4-10.2) 01/28/18 07:30 Magnesium 1.50 mg/dL (1.7-2.3) L 01/29/18 16:26 Total Creatine Kinase 492 units/L (30-135) H 01/26/18 16:27 Troponin T < 0.010 ng/mL (0.00-0.029) 01/23/18 20:59 TSH 3.280 mlU/mL (0.270-4.200) 01/29/18 16:26
[2018-01-31] MEDS: TYLENOL PO PRN (07:12)
[2018-01-31] MEDS: SODIUM CHLORIDE FLUSH SYRINGE 10 ML IV SCH ×2 (10:00→22:16)
[2018-01-31] MEDS: LOPRESSOR PO SCH ×2 (10:00→22:15)
[2018-01-31] MEDS: ATIVAN PO SCH ×2 (10:00→22:16)
[2018-01-31] MEDS: LOVENOX SUB-Q SCH (10:00)
[2018-01-31 10:20] LABS: BUN/Creatinine Ratio 28; Blood Urea Nitrogen 11 mg/dL (7-17); Calcium 9.8 mg/dL (8.4-10.2); Hemolysis Index 5
--- NOTE | 2018-01-31 11:06 | Progress Note ---
Assessment and Plan Recent fall Hypertension Sinus tachycardia normal TSH a physiologic response to current state of agitation, and requires no specific cardiac workup or management. Sinus rates should return to normal with resolution of acute psychiatric illness. Elevated glucose Psychosis Normal left ventricular systolic function, EF 55% by echo this admission. Conservative cardiac management. Subjective Date of service: 01/31/18 Interval history: Patient is resting in bed comfortably. Mild sinus tachycardia, rate ranging from 90-110 on telemetry. Objective Vital Signs Temp Pulse Resp BP Pulse Ox 01/31/18 04:00 67 01/30/18 17:00 79 148/89 01/30/18 16:34 111 H 90 01/30/18 13:19 98.2 F 126 H 18 159/89 94 - Physical Examination General: No Apparent Distress HEENT: Positive: PERRL Cardiac: Positive: Reg Rate and Rhythm Neuro: Positive: Grossly Intact Extremities: Absent: edema - Labs and Meds Comprehensive Metabolic Panel 01/31/18 Range/Units 09:38 Sodium 138 (137-145) mmol/L Potassium 3.6 (3.6-5.0) mmol/L Chloride 102.3 (98-107) mmol/L Carbon Dioxide 24 D (22-30) mmol/L BUN 11 (7-17) mg/dL Creatinine 0.4 L (0.7-1.2) mg/dL Glucose 252 H (65-100) mg/dL Calcium 9.8 (8.4-10.2) mg/dL
--- NOTE | 2018-01-31 11:33 | Progress Note ---
Assessment and Plan Assessment and plan: Psychosis secondary to Bipolar/Schizophrenia. Psychiatry following. Haldol prn. Cont 1013 per Psych Sinus Tachycardia. Etiology physiologic response secondary to agitation. Improved. Questionable fall. Pelvic and chest x-ray negative. Cervical spine and head CT negative. Rhabdomyolysis, resolved. Hypokalemia and hypomagnesemia, resolved. Disposition: Patient is medically stable for discharge to inpatient psych. History Interval history: Patient seen today. She refuses to communicate. No reported overnight issues. Hospitalist Physical - Constitutional Vitals: Temp Pulse Resp BP Pulse Ox 98.2 F 67 18 148/89 90 01/30/18 13:19 01/31/18 04:00 01/30/18 13:19 01/30/18 17:00 01/30/18 16:34 General appearance: Present: no acute distress - EENT Eyes: Present: PERRL, EOM intact ENT: clear oral mucosa - Neck Neck: Present: supple - Respiratory Respiratory effort: normal Respiratory: bilateral: CTA - Cardiovascular Rhythm: regular Heart Sounds: Present: S1 & S2 - Extremities Extremities: No edema - Abdominal General gastrointestinal: soft, non-tender, normal bowel sounds - Neurologic Neurologic: CNII-XII intact Results - Labs CBC & Chem 7: 01/27/18 03:55 01/31/18 09:38 Labs: Laboratory Last Values WBC 7.2 K/mm3 (4.5-11.0) 01/27/18 03:55 RBC 4.40 M/mm3 (3.65-5.03) 01/27/18 03:55 Hgb 13.7 gm/dl (10.1-14.3) 01/27/18 03:55 Hct 39.4 % (30.3-42.9) 01/27/18 03:55 MCV 89 fl (79-97) 01/27/18 03:55 MCH 31 pg (28-32) 01/27/18 03:55 MCHC 35 % (30-34) H 01/27/18 03:55 RDW 13.0 % (13.2-15.2) L 01/27/18 03:55 Plt Count 246 K/mm3 (140-440) 01/27/18 03:55 Lymph % (Auto) 33.3 % (13.4-35.0) 01/27/18 03:55 [place] % (Auto) 8.9 % (0.0-7.3) H 01/27/18 03:55 Eos % (Auto) 0.8 % (0.0-4.3) 01/27/18 03:55 Baso % (Auto) 0.4 % (0.0-1.8) 01/27/18 03:55 Lymph # 2.4 K/mm3 (1.2-5.4) 01/27/18 03:55 [place] # 0.6 K/mm3 (0.0-0.8) 01/27/18 03:55 Eos # 0.1 K/mm3 (0.0-0.4) 01/27/18 03:55 Baso # 0.0 K/mm3 (0.0-0.1) 01/27/18 03:55 Seg Neutrophils % 56.6 % (40.0-70.0) 01/27/18 03:55 Seg Neutrophils # 4.1 K/mm3 (1.8-7.7) 01/27/18 03:55 Sodium 138 mmol/L (137-145) 01/31/18 09:38 Potassium 3.6 mmol/L (3.6-5.0) 01/31/18 09:38 Chloride 102.3 mmol/L (98-107) 01/31/18 09:38 Carbon Dioxide 24 mmol/L (22-30) D 01/31/18 09:38 Anion Gap 15 mmol/L 01/31/18 09:38 BUN 11 mg/dL (7-17) 01/31/18 09:38 Creatinine 0.4 mg/dL (0.7-1.2) L 01/31/18 09:38 Estimated GFR > 60 ml/min 01/31/18 09:38 BUN/Creatinine Ratio 28 % 01/31/18 09:38 Glucose 252 mg/dL (65-100) H 01/31/18 09:38 POC Glucose 75 (70-105) 01/23/18 23:40 Calcium 9.8 mg/dL (8.4-10.2) 01/31/18 09:38 Magnesium 1.70 mg/dL (1.7-2.3) 01/31/18 09:38 Total Creatine Kinase 492 units/L (30-135) H 01/26/18 16:27 Troponin T < 0.010 ng/mL (0.00-0.029) 01/23/18 20:59 TSH 3.280 mlU/mL (0.270-4.200) 01/29/18 16:26
[2018-01-31] MEDS ORDERED: K-DUR PO SCH (14:00)
--- NOTE | 2018-01-31 14:02 | Progress Note ---
Subjective - Reason for Consult Consult date: 01/31/18 Reason for consult: Psychiatric Follow-up Evaluation - Chief Complaint Chief complaint: Patient speech is difficult to understand Patient is a 57-year-old female presents to the emergency department from [place] for a general medical evaluation. Today the patient is still not in restraints. She is seen with her legs hanging on the hospital bed rails. Sitter is at bedside. She continues to mumbles (intermittently). The patient's eyes are open during the assessment. She appears restless. Per sitter patient removed her IV access. Per sitter patient is eating and sleeping. No gestures of SI/HI's. Mental Status Exam - Vital signs Last Vital Signs Temp 98.2 F 01/30/18 13:19 Pulse 67 01/31/18 04:00 Resp 18 01/30/18 13:19 BP 148/89 01/30/18 17:00 Pulse Ox 90 01/30/18 16:34 - Exam Narrative exam: Mental Status Exam General Appearance: Causally Dressed-hospital gown, disheveled Eye Contact: Poor Orientation: Alert and oriented x 1 ( person) Attitude/Behavior: Unable to Assess Sensorium: Distracted Psychomotor & Musculoskeletal Activity: Laying in bed Mood: Unable to Assess Affect: Unable to Assess Speech/Language: Mumbles Thought Processes: Unable to Assess Thought Content: Impoverished Perception: Unable to Assess Concentration/Attention: Impaired Suicidal Ideations/Plan: " No" Homicidal Ideations/Plan: "No" Judgment: Poor Insight: Poor Assessment and Plan Impression: Unspecified Psychosis. Today the patient is not in restraints, but her eyes are open during the assessment. She appears restless. Patient speech is difficult to understand because patient mumbles. DDx: Bipolar DO with psychosis, Schizophrenia Recommendation/Plan: 1. Continue 1013 with placement to inpatient psy services once medically clear. 2. Continue Zyprexa Zydis to 10 mg PO HS for psychosis, and continue Ativan 0.5 mg PO BID for anxiety, and Haldol 2 mg IM Q6hrs PRN for acute agitation. Attempted to discuss possible metabolic side effects of Zyprexa with patient. 3. Continue to hydrate the patient. D/C restraints when not indicated. Monitor the patient for catatonia. 4. Will monitor mood, psychosis, sleep, appetite, compliance, and side effects.
[2018-01-31] MEDS: K-DUR PO SCH (22:16)
--- NOTE | 2018-02-01 10:19 | Progress Note ---
Subjective - Reason for Consult Consult date: 02/01/18 Reason for consult: Psychiatry Follow-up - Chief Complaint Chief complaint: The patient still mumbles" Patient is a 57-year-old female presents to the emergency department from [place] for a general medical evaluation. Today the patient is not in restraints, but she still mumbles during the assessment. The patient's eyes are open. She appears restless. No gestures of SI/HI's. Mental Status Exam - Vital signs Last Vital Signs Temp 97.4 F L 02/01/18 07:28 Pulse 74 02/01/18 07:28 Resp 16 02/01/18 07:28 BP 117/69 02/01/18 07:28 Pulse Ox 94 02/01/18 07:28 - Exam Narrative exam: MSE: Appearance: in a hospital gown Behavior: eyes are open Speech: mumbles intermittently Mood: unable to assess Affect: flat Thought Process: unable to assess Thought Content: unable to assess Motor Activity: in restraints Cognition: awake Insight: unable to assess Judgment: unable to assess Assessment and Plan Impression: Unspecified Psychosis. Today the patient is awake, but still mumbles during the assessment. She isn't in restraints DDx: Bipolar DO with psychosis, Schizophrenia Recommendation/Plan: Continue 1013 with placement to inpatient psy services once medically clear. Continue Zyprexa Zydis 10 mg PO HS for psychosis, and continue Ativan 0.5 mg PO BID for anxiety, and Haldol 2 mg IM Q6hrs PRN for acute agitation. Attempted to discuss possible metabolic side effects of Zyprexa with patient. Continue to hydrate the patient. D/C restraints when not indicated. Monitor the patient for catatonia.
--- NOTE | 2018-02-01 11:06 | Progress Note ---
Assessment and Plan Recent fall Hypertension Sinus tachycardia normal TSH a physiologic response to current state of agitation, and requires no specific cardiac workup or management. Sinus rates should return to normal with resolution of acute psychiatric illness. Elevated glucose Psychosis Normal left ventricular systolic function, EF 55% by echo this admission. Conservative cardiac management. Subjective Date of service: 02/01/18 Interval history: Patient is resting in bed comfortably. Stable sinus rhythm on telemetry. Objective Vital Signs Temp Pulse Resp BP Pulse Ox 02/01/18 07:28 97.4 F L 74 16 117/69 94 01/31/18 22:15 144/111 01/31/18 16:00 67 - Physical Examination General: No Apparent Distress HEENT: Positive: PERRL Cardiac: Positive: Reg Rate and Rhythm Neuro: Positive: Grossly Intact Extremities: Absent: edema
[2018-02-01] MEDS: ATIVAN PO SCH ×2 (11:18→22:40)
[2018-02-01] MEDS: K-DUR PO SCH (11:19)
[2018-02-01] MEDS: LOVENOX SUB-Q SCH (11:19)
--- NOTE | 2018-02-01 11:19 | Progress Note ---
Assessment and Plan Assessment and plan: Psychosis secondary to Bipolar/Schizophrenia. Psychiatry following. Haldol prn. Cont 1013 per Psych Sinus Tachycardia. Etiology physiologic response secondary to agitation. Improved. Questionable fall. Pelvic and chest x-ray negative. Cervical spine and head CT negative. Rhabdomyolysis, resolved. Hypokalemia and hypomagnesemia, resolved s/p repletion. Hyperglycemia: will check HBAIC level Acute metabolic acidosis, resolved Disposition: Patient is medically stable for discharge to inpatient psych facility. History Interval history: Patient seen today. She is unable to communicate appropriately. No reported overnight issues. Hospitalist Physical - Constitutional Vitals: Temp Pulse Resp BP Pulse Ox 97.4 F L 74 16 117/69 94 02/01/18 07:28 02/01/18 07:28 02/01/18 07:28 02/01/18 07:28 02/01/18 07:28 General appearance: Present: no acute distress - EENT Eyes: Present: PERRL, EOM intact ENT: clear oral mucosa - Neck Neck: Present: supple, normal ROM - Respiratory Respiratory effort: normal Respiratory: bilateral: CTA - Cardiovascular Rhythm: regular Heart Sounds: Present: S1 & S2 - Extremities Extremities: No edema - Abdominal General gastrointestinal: soft, non-tender, normal bowel sounds - Neurologic Neurologic: CNII-XII intact Results - Labs CBC & Chem 7: 01/27/18 03:55 01/31/18 09:38 Labs: Laboratory Last Values WBC 7.2 K/mm3 (4.5-11.0) 01/27/18 03:55 RBC 4.40 M/mm3 (3.65-5.03) 01/27/18 03:55 Hgb 13.7 gm/dl (10.1-14.3) 01/27/18 03:55 Hct 39.4 % (30.3-42.9) 01/27/18 03:55 MCV 89 fl (79-97) 01/27/18 03:55 MCH 31 pg (28-32) 01/27/18 03:55 MCHC 35 % (30-34) H 01/27/18 03:55 RDW 13.0 % (13.2-15.2) L 01/27/18 03:55 Plt Count 246 K/mm3 (140-440) 01/27/18 03:55 Lymph % (Auto) 33.3 % (13.4-35.0) 01/27/18 03:55 [place] % (Auto) 8.9 % (0.0-7.3) H 01/27/18 03:55 Eos % (Auto) 0.8 % (0.0-4.3) 01/27/18 03:55 Baso % (Auto) 0.4 % (0.0-1.8) 01/27/18 03:55 Lymph # 2.4 K/mm3 (1.2-5.4) 01/27/18 03:55 [place] # 0.6 K/mm3 (0.0-0.8) 01/27/18 03:55 Eos # 0.1 K/mm3 (0.0-0.4) 01/27/18 03:55 Baso # 0.0 K/mm3 (0.0-0.1) 01/27/18 03:55 Seg Neutrophils % 56.6 % (40.0-70.0) 01/27/18 03:55 Seg Neutrophils # 4.1 K/mm3 (1.8-7.7) 01/27/18 03:55 Sodium 138 mmol/L (137-145) 01/31/18 09:38 Potassium 3.6 mmol/L (3.6-5.0) 01/31/18 09:38 Chloride 102.3 mmol/L (98-107) 01/31/18 09:38 Carbon Dioxide 24 mmol/L (22-30) D 01/31/18 09:38 Anion Gap 15 mmol/L 01/31/18 09:38 BUN 11 mg/dL (7-17) 01/31/18 09:38 Creatinine 0.4 mg/dL (0.7-1.2) L 01/31/18 09:38 Estimated GFR > 60 ml/min 01/31/18 09:38 BUN/Creatinine Ratio 28 % 01/31/18 09:38 Glucose 252 mg/dL (65-100) H 01/31/18 09:38 POC Glucose 75 (70-105) 01/23/18 23:40 Calcium 9.8 mg/dL (8.4-10.2) 01/31/18 09:38 Magnesium 1.70 mg/dL (1.7-2.3) 01/31/18 09:38 Total Creatine Kinase 492 units/L (30-135) H 01/26/18 16:27 Troponin T < 0.010 ng/mL (0.00-0.029) 01/23/18 20:59 TSH 3.280 mlU/mL (0.270-4.200) 01/29/18 16:26
[2018-02-01] MEDS: LOPRESSOR PO SCH ×2 (11:20→22:41)
[2018-02-01] MEDS: SODIUM CHLORIDE FLUSH SYRINGE 10 ML IV SCH ×2 (11:20→22:41)
[2018-02-02] MEDS ORDERED: D50W (25GM) Syringe IV PRN (09:36)
[2018-02-02] MEDS: HALDOL IM PRN (09:39)
[2018-02-02] MEDS: K-DUR PO SCH (09:39)
[2018-02-02] MEDS: ATIVAN PO SCH ×2 (09:39→22:40)
[2018-02-02] MEDS: SODIUM CHLORIDE FLUSH SYRINGE 10 ML IV SCH ×2 (09:40→22:40)
[2018-02-02] MEDS: LOPRESSOR PO SCH ×2 (09:40→22:40)
[2018-02-02] MEDS: HumaLOG SUB-Q SCH ×4 (11:30→23:12)
[2018-02-02] MEDS: LOVENOX SUB-Q SCH (13:00)
[2018-02-02] MEDS: LOTRIMIN TP SCH ×2 (13:00→22:39)
--- NOTE | 2018-02-02 13:12 | Progress Note ---
Subjective - Reason for Consult Consult date: 02/02/18 Reason for consult: Psychiatry Follow-up - Chief Complaint Chief complaint: The patient had incoherent speech" Patient is a 57-year-old female presents to the emergency department from [place] for a general medical evaluation. Today the patient is not in restraints, but her speech is still incoherent during the assessment. She appears restless. No gestures of SI/HI's. Per collateral from her son Zeferino Castillo at stated that his mother has a hx of Bipolar DO. He stated that his mother have been hospitalized several times in the past 3 yrs for psychosis. He stated that she take Zyprexa. He stated that he and his sister are in the process of getting health insurance for his mother. Mental Status Exam - Vital signs Last Vital Signs Temp 97.5 F L 02/02/18 08:00 Pulse 97 H 02/02/18 09:40 Resp 20 02/02/18 08:00 BP 138/78 02/02/18 09:40 Pulse Ox 96 02/02/18 06:09 - Exam Narrative exam: MSE: Appearance: in a hospital gown Behavior: eyes are open Speech: incoherent Mood: unable to assess Affect: flat Thought Process: unable to assess Thought Content: unable to assess Motor Activity: in restraints Cognition: awake Insight: unable to assess Judgment: unable to assess Assessment and Plan Impression: Unspecified Psychosis. Today the patient is alert with incoherent speech during the assessment. She isn't in restraints DDx: Bipolar DO with psychosis, Schizophrenia Recommendation/Plan: Continue 1013 with placement to inpatient psy services. Continue Zyprexa Zydis 10 mg PO HS for psychosis, Ativan 0.5 mg PO BID for anxiety, and Haldol 2 mg IM Q6hrs PRN for acute agitation. Discussed possible metabolic side effects of Zyprexa with the patient's son Zeferino Castillo.
--- NOTE | 2018-02-02 14:30 | Progress Note ---
Assessment and Plan Assessment and plan: Psychosis secondary to Bipolar/Schizophrenia. Psychiatry following. Haldol prn. Cont 1013 per Psych Sinus Tachycardia. Etiology physiologic response secondary to agitation. Improved. Questionable fall. Pelvic and chest x-ray negative. Cervical spine and head CT negative. Rhabdomyolysis, resolved. Hypokalemia and hypomagnesemia, resolved s/p repletion. DM2, query new onset -HBAIC: 12.5 -on SSI and Lantus Acute metabolic acidosis, resolved Disposition: Patient is medically stable for discharge to inpatient psych facility. History Interval history: Patient seen today. She is unable to communicate appropriately. She was agitated overnight and was placed on restraints Hospitalist Physical - Constitutional Vitals: Temp Pulse Resp BP Pulse Ox 97.5 F L 97 H 20 138/78 96 02/02/18 08:00 02/02/18 09:40 02/02/18 10:00 02/02/18 09:40 02/02/18 06:09 General appearance: Present: no acute distress - EENT Eyes: Present: PERRL, EOM intact ENT: clear oral mucosa - Neck Neck: Present: supple - Respiratory Respiratory effort: normal Respiratory: bilateral: CTA - Cardiovascular Rhythm: regular Heart Sounds: Present: S1 & S2 - Extremities Extremities: No edema - Abdominal General gastrointestinal: soft, non-tender, normal bowel sounds - Neurologic Neurologic: CNII-XII intact Results - Labs CBC & Chem 7: 01/27/18 03:55 01/31/18 09:38 Labs: Laboratory Last Values WBC 7.2 K/mm3 (4.5-11.0) 01/27/18 03:55 RBC 4.40 M/mm3 (3.65-5.03) 01/27/18 03:55 Hgb 13.7 gm/dl (10.1-14.3) 01/27/18 03:55 Hct 39.4 % (30.3-42.9) 01/27/18 03:55 MCV 89 fl (79-97) 01/27/18 03:55 MCH 31 pg (28-32) 01/27/18 03:55 MCHC 35 % (30-34) H 01/27/18 03:55 RDW 13.0 % (13.2-15.2) L 01/27/18 03:55 Plt Count 246 K/mm3 (140-440) 01/27/18 03:55 Lymph % (Auto) 33.3 % (13.4-35.0) 01/27/18 03:55 [place] % (Auto) 8.9 % (0.0-7.3) H 01/27/18 03:55 Eos % (Auto) 0.8 % (0.0-4.3) 01/27/18 03:55 Baso % (Auto) 0.4 % (0.0-1.8) 01/27/18 03:55 Lymph # 2.4 K/mm3 (1.2-5.4) 01/27/18 03:55 [place] # 0.6 K/mm3 (0.0-0.8) 01/27/18 03:55 Eos # 0.1 K/mm3 (0.0-0.4) 01/27/18 03:55 Baso # 0.0 K/mm3 (0.0-0.1) 01/27/18 03:55 Seg Neutrophils % 56.6 % (40.0-70.0) 01/27/18 03:55 Seg Neutrophils # 4.1 K/mm3 (1.8-7.7) 01/27/18 03:55 Sodium 138 mmol/L (137-145) 01/31/18 09:38 Potassium 3.6 mmol/L (3.6-5.0) 01/31/18 09:38 Chloride 102.3 mmol/L (98-107) 01/31/18 09:38 Carbon Dioxide 24 mmol/L (22-30) D 01/31/18 09:38 Anion Gap 15 mmol/L 01/31/18 09:38 BUN 11 mg/dL (7-17) 01/31/18 09:38 Creatinine 0.4 mg/dL (0.7-1.2) L 01/31/18 09:38 Estimated GFR > 60 ml/min 01/31/18 09:38 BUN/Creatinine Ratio 28 % 01/31/18 09:38 Glucose 252 mg/dL (65-100) H 01/31/18 09:38 POC Glucose 75 (70-105) 01/23/18 23:40 Hemoglobin A1c 12.5 % (4-6) H 02/02/18 05:52 Calcium 9.8 mg/dL (8.4-10.2) 01/31/18 09:38 Magnesium 1.70 mg/dL (1.7-2.3) 01/31/18 09:38 Total Creatine Kinase 492 units/L (30-135) H 01/26/18 16:27 Troponin T < 0.010 ng/mL (0.00-0.029) 01/23/18 20:59 TSH 3.280 mlU/mL (0.270-4.200) 01/29/18 16:26
[2018-02-02] MEDS ORDERED: LANTUS SUB-Q SCH (22:00)
[2018-02-03] MEDS: HumaLOG SUB-Q SCH ×3 (09:05→18:08)
[2018-02-03] MEDS: K-DUR PO SCH (11:00)
[2018-02-03] MEDS: LOVENOX SUB-Q SCH (11:00)
[2018-02-03] MEDS: LOPRESSOR PO SCH (11:01)
[2018-02-03] MEDS: ATIVAN PO SCH (11:02)
[2018-02-03] MEDS: SODIUM CHLORIDE FLUSH SYRINGE 10 ML IV SCH (11:02)
--- NOTE | 2018-02-03 13:00 | Progress Note ---
Assessment and Plan Assessment and plan: Psychosis secondary to Bipolar/Schizophrenia. Psychiatry following. Haldol prn. Cont 1013 per Psych Sinus Tachycardia. Etiology physiologic response secondary to agitation. Improved. Questionable fall. Pelvic and chest x-ray negative. Cervical spine and head CT negative. Rhabdomyolysis, resolved. Hypokalemia and hypomagnesemia, resolved s/p repletion. DM2 with hyperglycemia, query new onset -HBAIC: 12.5 -will increase Lantus and cont SSI Acute metabolic acidosis, resolved Disposition: Patient is medically stable for discharge to inpatient psych facility. History Interval history: Patient seen today. She is unable to communicate appropriately. Per report, she has been agitated and continues to require [facility] Hospitalist Physical - Constitutional Vitals: Temp Pulse Resp BP Pulse Ox 98.2 F 111 H 20 137/70 97 02/03/18 06:12 02/03/18 11:01 02/03/18 06:12 02/03/18 11:02/03/18 06:12 General appearance: Present: no acute distress - EENT Eyes: Present: PERRL, EOM intact ENT: clear oral mucosa - Neck Neck: Present: supple - Respiratory Respiratory effort: normal Respiratory: bilateral: CTA - Cardiovascular Rhythm: other (tachycardia with regular rhythm) Heart Sounds: Present: S1 & S2 - Extremities Extremities: No edema - Abdominal General gastrointestinal: soft, non-tender, normal bowel sounds - Neurologic Neurologic: CNII-XII intact Results - Labs CBC & Chem 7: 01/27/18 03:55 01/31/18 09:38 Labs: Laboratory Last Values WBC 7.2 K/mm3 (4.5-11.0) 01/27/18 03:55 RBC 4.40 M/mm3 (3.65-5.03) 01/27/18 03:55 Hgb 13.7 gm/dl (10.1-14.3) 01/27/18 03:55 Hct 39.4 % (30.3-42.9) 01/27/18 03:55 MCV 89 fl (79-97) 01/27/18 03:55 MCH 31 pg (28-32) 01/27/18 03:55 MCHC 35 % (30-34) H 01/27/18 03:55 RDW 13.0 % (13.2-15.2) L 01/27/18 03:55 Plt Count 246 K/mm3 (140-440) 01/27/18 03:55 Lymph % (Auto) 33.3 % (13.4-35.0) 01/27/18 03:55 [place] % (Auto) 8.9 % (0.0-7.3) H 01/27/18 03:55 Eos % (Auto) 0.8 % (0.0-4.3) 01/27/18 03:55 Baso % (Auto) 0.4 % (0.0-1.8) 01/27/18 03:55 Lymph # 2.4 K/mm3 (1.2-5.4) 01/27/18 03:55 [place] # 0.6 K/mm3 (0.0-0.8) 01/27/18 03:55 Eos # 0.1 K/mm3 (0.0-0.4) 01/27/18 03:55 Baso # 0.0 K/mm3 (0.0-0.1) 01/27/18 03:55 Seg Neutrophils % 56.6 % (40.0-70.0) 01/27/18 03:55 Seg Neutrophils # 4.1 K/mm3 (1.8-7.7) 01/27/18 03:55 Sodium 138 mmol/L (137-145) 01/31/18 09:38 Potassium 3.6 mmol/L (3.6-5.0) 01/31/18 09:38 Chloride 102.3 mmol/L (98-107) 01/31/18 09:38 Carbon Dioxide 24 mmol/L (22-30) D 01/31/18 09:38 Anion Gap 15 mmol/L 01/31/18 09:38 BUN 11 mg/dL (7-17) 01/31/18 09:38 Creatinine 0.4 mg/dL (0.7-1.2) L 01/31/18 09:38 Estimated GFR > 60 ml/min 01/31/18 09:38 BUN/Creatinine Ratio 28 % 01/31/18 09:38 Glucose 252 mg/dL (65-100) H 01/31/18 09:38 POC Glucose 206 (70-105) H 02/03/18 07:56 Hemoglobin A1c 12.5 % (4-6) H 02/02/18 05:52 Calcium 9.8 mg/dL (8.4-10.2) 01/31/18 09:38 Magnesium 1.70 mg/dL (1.7-2.3) 01/31/18 09:38 Total Creatine Kinase 492 units/L (30-135) H 01/26/18 16:27 Troponin T < 0.010 ng/mL (0.00-0.029) 01/23/18 20:59 TSH 3.280 mlU/mL (0.270-4.200) 01/29/18 16:26
[2018-02-03] MEDS: LOTRIMIN TP SCH ×2 (13:16→22:50)
[2018-02-04] MEDS: SODIUM CHLORIDE FLUSH SYRINGE 10 ML IV SCH ×3 (02:44→22:21)
[2018-02-04] MEDS: HumaLOG SUB-Q SCH ×5 (08:52→22:36)
[2018-02-04] MEDS: LOVENOX SUB-Q SCH (10:17)
[2018-02-04] MEDS: LOPRESSOR PO SCH ×3 (10:18→22:18)
[2018-02-04] MEDS: ATIVAN PO SCH ×3 (10:18→22:19)
[2018-02-04] MEDS: K-DUR PO SCH (10:18)
[2018-02-04] MEDS: LOTRIMIN TP SCH ×2 (10:19→22:21)
--- NOTE | 2018-02-04 11:36 | Progress Note ---
Assessment and Plan Assessment and plan: Psychosis secondary to Bipolar/Schizophrenia. Psychiatry following. Haldol prn. Cont 1013 per Psych Sinus Tachycardia. Likely due to physiologic response to agitation. Stable Questionable fall. Pelvic and chest x-ray negative. Cervical spine and head CT negative. Rhabdomyolysis, resolved. Hypokalemia and hypomagnesemia, resolved s/p repletion. DM2, query new onset -Blood glucose improving -will continue current dose of Lantus and SSI, will adjust as needed Acute metabolic acidosis, resolved Disposition: Patient is medically stable for discharge to inpatient psych facility. History Interval history: Patient seen today. She is unable to communicate appropriately. Per report, [facility] has been [facility] - Constitutional Vitals: Temp Pulse Resp BP Pulse Ox 97.6 F 114 H 18 115/70 95 02/04/18 04:17 02/04/18 10:18 02/04/18 04:17 02/04/18 10:18 02/04/18 04:17 General appearance: Present: no acute distress, other (mildly agitated) - EENT Eyes: Present: PERRL, EOM intact ENT: clear oral mucosa - Neck Neck: Present: supple - Respiratory Respiratory effort: normal Respiratory: bilateral: CTA - Cardiovascular Rhythm: regular Heart Sounds: Present: S1 & S2 - Extremities Extremities: No edema - Abdominal General gastrointestinal: soft, non-tender, normal bowel sounds - Neurologic Neurologic: other (patient is awake but unable to communicate appropriately) Results - Labs CBC & Chem 7: 01/27/18 03:55 01/31/18 09:38 Labs: Laboratory Last Values WBC 7.2 K/mm3 (4.5-11.0) 01/27/18 03:55 RBC 4.40 M/mm3 (3.65-5.03) 01/27/18 03:55 Hgb 13.7 gm/dl (10.1-14.3) 01/27/18 03:55 Hct 39.4 % (30.3-42.9) 01/27/18 03:55 MCV 89 fl (79-97) 01/27/18 03:55 MCH 31 pg (28-32) 01/27/18 03:55 MCHC 35 % (30-34) H 01/27/18 03:55 RDW 13.0 % (13.2-15.2) L 01/27/18 03:55 Plt Count 246 K/mm3 (140-440) 01/27/18 03:55 Lymph % (Auto) 33.3 % (13.4-35.0) 01/27/18 03:55 [place] % (Auto) 8.9 % (0.0-7.3) H 01/27/18 03:55 Eos % (Auto) 0.8 % (0.0-4.3) 01/27/18 03:55 Baso % (Auto) 0.4 % (0.0-1.8) 01/27/18 03:55 Lymph # 2.4 K/mm3 (1.2-5.4) 01/27/18 03:55 [place] # 0.6 K/mm3 (0.0-0.8) 01/27/18 03:55 Eos # 0.1 K/mm3 (0.0-0.4) 01/27/18 03:55 Baso # 0.0 K/mm3 (0.0-0.1) 01/27/18 03:55 Seg Neutrophils % 56.6 % (40.0-70.0) 01/27/18 03:55 Seg Neutrophils # 4.1 K/mm3 (1.8-7.7) 01/27/18 03:55 Sodium 138 mmol/L (137-145) 01/31/18 09:38 Potassium 3.6 mmol/L (3.6-5.0) 01/31/18 09:38 Chloride 102.3 mmol/L (98-107) 01/31/18 09:38 Carbon Dioxide 24 mmol/L (22-30) D 01/31/18 09:38 Anion Gap 15 mmol/L 01/31/18 09:38 BUN 11 mg/dL (7-17) 01/31/18 09:38 Creatinine 0.4 mg/dL (0.7-1.2) L 01/31/18 09:38 Estimated GFR > 60 ml/min 01/31/18 09:38 BUN/Creatinine Ratio 28 % 01/31/18 09:38 Glucose 252 mg/dL (65-100) H 01/31/18 09:38 POC Glucose 182 (70-105) H 02/04/18 07:48 Hemoglobin A1c 12.5 % (4-6) H 02/02/18 05:52 Calcium 9.8 mg/dL (8.4-10.2) 01/31/18 09:38 Magnesium 1.70 mg/dL (1.7-2.3) 01/31/18 09:38 Total Creatine Kinase 492 units/L (30-135) H 01/26/18 16:27 Troponin T < 0.010 ng/mL (0.00-0.029) 01/23/18 20:59 TSH 3.280 mlU/mL (0.270-4.200) 01/29/18 16:26
[2018-02-04] MEDS: HALDOL IM PRN (15:45)
[2018-02-04] MEDS: TYLENOL PO PRN (17:38)
[2018-02-04] MEDS: LANTUS SUB-Q SCH ×2 (22:20)
[2018-02-05] MEDS: HumaLOG SUB-Q SCH ×4 (09:36→21:56)
[2018-02-05] MEDS: LOVENOX SUB-Q SCH (09:45)
[2018-02-05] MEDS: LOPRESSOR PO SCH ×2 (09:46→22:19)
[2018-02-05] MEDS: K-DUR PO SCH (09:47)
[2018-02-05] MEDS: ATIVAN PO SCH ×2 (09:47→22:24)
[2018-02-05] MEDS: LOTRIMIN TP SCH (09:48)
--- NOTE | 2018-02-05 11:10 | Progress Note ---
Subjective - Reason for Consult Consult date: 02/05/18 Reason for consult: Psychiatry Follow-up - Chief Complaint Chief complaint: The patient had incoherent speech" Patient is a 57-year-old female presents to the emergency department from [place] for a general medical evaluation. Today the patient's hands are in mittens. She has incoherent speech. She continue to appear restless. No gestures of SI/HI's. Mental Status Exam - Vital signs Last Vital Signs Temp 97.7 F 02/04/18 23:55 Pulse 116 H 02/05/18 09:46 Resp 16 02/04/18 23:55 BP 131/81 02/05/18 09:46 Pulse Ox 97 02/04/18 23:55 - Exam Narrative exam: MSE: Appearance: in a hospital gown Behavior: eyes are open Speech: incoherent Mood: unable to assess Affect: flat Thought Process: unable to assess Thought Content: unable to assess Motor Activity: in restraints Cognition: awake Insight: unable to assess Judgment: unable to assess Assessment and Plan Impression: Unspecified Psychosis. Today the patient's hands are in mittens. She has incoherent speech. DDx: Bipolar DO with psychosis, Schizophrenia Recommendation/Plan: Continue 1013 with placement to inpatient psy services. Increase Zyprexa Zydis to 15 mg PO HS for psychosis, Ativan 0.5 mg PO BID for anxiety, and Haldol 2 mg IM Q6hrs PRN for acute agitation. The benefit of increasing the patient's Zyprexa Zydis outweigh the risk (diabetes). The patient is psychotic.
--- NOTE | 2018-02-05 13:33 | Progress Note ---
Assessment and Plan Assessment and plan: Psychosis secondary to Bipolar/Schizophrenia. Psychiatry following. On scheduled ativan, olanzapine and PRN Haldol. Cont 1013 per Psych Sinus Tachycardia. Probably sec to physiologic response to agitation. HR controlled on Lopressor. Cardiology signed off. Questionable fall. Pelvic and chest x-ray negative. Cervical spine and head CT negative. Rhabdomyolysis, resolved. Hypokalemia and hypomagnesemia, resolved s/p repletion. DM2, query new onset -Blood glucose fairly controlled -Lantus dose increased and cont SSI, adjust as needed Acute metabolic acidosis, resolved Disposition: Patient is medically stable for discharge to inpatient psych facility. History Interval history: Patient seen today. She is unable to communicate appropriately. Per report, she has been agitated and continues to require [facility] Hospitalist Physical - Constitutional Vitals: Temp Pulse Resp BP Pulse Ox 97.7 F 86 22 128/86 97 02/04/18 23:55 02/05/18 12:42 02/05/18 12:42 02/05/18 12:42 02/04/18 23:55 General appearance: Present: no acute distress, other (pt was moaning) - EENT Eyes: Present: PERRL, EOM intact - Neck Neck: Present: supple - Respiratory Respiratory: bilateral: CTA - Cardiovascular Rhythm: regular Heart Sounds: Present: S1 & S2 - Extremities Extremities: No edema - Abdominal General gastrointestinal: soft, non-tender, normal bowel sounds - Neurologic Neurologic: CNII-XII intact Results - Labs CBC & Chem 7: 01/27/18 03:55 01/31/18 09:38 Labs: Laboratory Last Values WBC 7.2 K/mm3 (4.5-11.0) 01/27/18 03:55 RBC 4.40 M/mm3 (3.65-5.03) 01/27/18 03:55 Hgb 13.7 gm/dl (10.1-14.3) 01/27/18 03:55 Hct 39.4 % (30.3-42.9) 01/27/18 03:55 MCV 89 fl (79-97) 01/27/18 03:55 MCH 31 pg (28-32) 01/27/18 03:55 MCHC 35 % (30-34) H 01/27/18 03:55 RDW 13.0 % (13.2-15.2) L 01/27/18 03:55 Plt Count 246 K/mm3 (140-440) 01/27/18 03:55 Lymph % (Auto) 33.3 % (13.4-35.0) 01/27/18 03:55 [place] % (Auto) 8.9 % (0.0-7.3) H 01/27/18 03:55 Eos % (Auto) 0.8 % (0.0-4.3) 01/27/18 03:55 Baso % (Auto) 0.4 % (0.0-1.8) 01/27/18 03:55 Lymph # 2.4 K/mm3 (1.2-5.4) 01/27/18 03:55 [place] # 0.6 K/mm3 (0.0-0.8) 01/27/18 03:55 Eos # 0.1 K/mm3 (0.0-0.4) 01/27/18 03:55 Baso # 0.0 K/mm3 (0.0-0.1) 01/27/18 03:55 Seg Neutrophils % 56.6 % (40.0-70.0) 01/27/18 03:55 Seg Neutrophils # 4.1 K/mm3 (1.8-7.7) 01/27/18 03:55 Sodium 138 mmol/L (137-145) 01/31/18 09:38 Potassium 3.6 mmol/L (3.6-5.0) 01/31/18 09:38 Chloride 102.3 mmol/L (98-107) 01/31/18 09:38 Carbon Dioxide 24 mmol/L (22-30) D 01/31/18 09:38 Anion Gap 15 mmol/L 01/31/18 09:38 BUN 11 mg/dL (7-17) 01/31/18 09:38 Creatinine 0.4 mg/dL (0.7-1.2) L 01/31/18 09:38 Estimated GFR > 60 ml/min 01/31/18 09:38 BUN/Creatinine Ratio 28 % 01/31/18 09:38 Glucose 252 mg/dL (65-100) H 01/31/18 09:38 POC Glucose 209 (70-105) H 02/04/18 21:23 Hemoglobin A1c 12.5 % (4-6) H 02/02/18 05:52 Calcium 9.8 mg/dL (8.4-10.2) 01/31/18 09:38 Magnesium 1.70 mg/dL (1.7-2.3) 01/31/18 09:38 Total Creatine Kinase 492 units/L (30-135) H 01/26/18 16:27 Troponin T < 0.010 ng/mL (0.00-0.029) 01/23/18 20:59 TSH 3.280 mlU/mL (0.270-4.200) 01/29/18 16:26
[2018-02-05] MEDS: SODIUM CHLORIDE FLUSH SYRINGE 10 ML IV SCH ×2 (13:42→22:24)
[2018-02-05] MEDS: LANTUS SUB-Q SCH (21:58)
[2018-02-06] MEDS: LOTRIMIN TP SCH ×3 (03:54→22:24)
[2018-02-06] MEDS: HumaLOG SUB-Q SCH ×4 (08:14→22:22)
[2018-02-06] MEDS: LOVENOX SUB-Q SCH (10:46)
[2018-02-06] MEDS: ATIVAN PO SCH ×2 (10:47→22:22)
[2018-02-06] MEDS: K-DUR PO SCH (10:47)
[2018-02-06] MEDS: SODIUM CHLORIDE FLUSH SYRINGE 10 ML IV SCH ×2 (10:48→22:26)
[2018-02-06] MEDS: LOPRESSOR PO SCH ×2 (10:51→22:24)
--- NOTE | 2018-02-06 15:31 | Progress Note ---
Subjective - Reason for Consult Consult date: 02/06/18 Reason for consult: Psychiatry Follow-up - Chief Complaint Chief complaint: The patient had incoherent speech" Patient is a 57-year-old female presents to the emergency department from [place] for a general medical evaluation. Today the patient's hands are still in mittens. There's no change to the patient's presentation. No gestures of SI/HI's. Mental Status Exam - Vital signs Last Vital Signs Temp 97.9 F 02/06/18 10:50 Pulse 121 H 02/06/18 10:51 Resp 22 02/06/18 10:50 BP 121/74 02/06/18 10:51 Pulse Ox 97 02/06/18 10:50 - Exam Narrative exam: MSE: Appearance: in a hospital gown Behavior: eyes are open Speech: incoherent Mood: unable to assess Affect: flat Thought Process: unable to assess Thought Content: unable to assess Motor Activity: in restraints Cognition: awake Insight: unable to assess Judgment: unable to assess Assessment and Plan Impression: Unspecified Psychosis. Today the patient's hands are still in mittens. She has incoherent speech. DDx: Bipolar DO with psychosis, Schizophrenia Recommendation/Plan: Continue 1013 with placement to inpatient psy services. Continue Zyprexa Zydis 15 mg PO HS for psychosis, Ativan 0.5 mg PO BID for anxiety, and Haldol 2 mg IM Q6hrs PRN for acute agitation. The benefit of increasing the patient's Zyprexa Zydis outweigh the risk (diabetes). The patient is psychotic.
--- NOTE | 2018-02-06 19:32 | Progress Note ---
Assessment and Plan Assessment and plan: Psychosis secondary to Bipolar/Schizophrenia. Psychiatry following. On scheduled ativan, olanzapine and PRN Haldol. Cont 1013 per Psych Sinus Tachycardia. Probably sec to physiologic response to agitation. HR controlled on Lopressor. Cardiology signed off. Questionable fall. Pelvic and chest x-ray negative. Cervical spine and head CT negative. Rhabdomyolysis, resolved. Hypokalemia and hypomagnesemia, resolved s/p repletion. DM2, query new onset -Blood glucose fairly controlled -Lantus dose increased and cont SSI, adjust as needed Acute metabolic acidosis, resolved Disposition: Patient is medically stable for discharge to inpatient psych facility. History Interval history: Jodi has been eating her meals she has not been conversant with staff or myself Hospitalist Physical - Physical exam Narrative exam: General.: Appears well, no distress, nontoxic HEENT: Moist mucous membranes, extraocular muscles intact, no lymphadenopathy Neck: supple Cardiac: S1-S2 heard Lungs: clear to auscultation bilaterally Abdomen: soft , nontender, nondistended, bowel sounds positive Extremities: no edema clubbing or cyanosis Skin: no rash or lesions Neurologic: no gross focal deficits Psych: disorganized behavior, opens eyes moves all extremities but does not cooperate with exam - Constitutional Vitals: Temp Pulse Resp BP Pulse Ox 97.9 F 99 H 22 102/67 98 02/06/18 18:24 02/06/18 18:24 02/06/18 18:24 02/06/18 18:24 02/06/18 18:24 General appearance: Present: no acute distress, other (pt was moaning) Results - Labs CBC & Chem 7: 01/27/18 03:55 01/31/18 09:38 Labs: Laboratory Last Values WBC 7.2 K/mm3 (4.5-11.0) 01/27/18 03:55 RBC 4.40 M/mm3 (3.65-5.03) 01/27/18 03:55 Hgb 13.7 gm/dl (10.1-14.3) 01/27/18 03:55 Hct 39.4 % (30.3-42.9) 01/27/18 03:55 MCV 89 fl (79-97) 01/27/18 03:55 MCH 31 pg (28-32) 01/27/18 03:55 MCHC 35 % (30-34) H 01/27/18 03:55 RDW 13.0 % (13.2-15.2) L 01/27/18 03:55 Plt Count 246 K/mm3 (140-440) 01/27/18 03:55 Lymph % (Auto) 33.3 % (13.4-35.0) 01/27/18 03:55 [place] % (Auto) 8.9 % (0.0-7.3) H 01/27/18 03:55 Eos % (Auto) 0.8 % (0.0-4.3) 01/27/18 03:55 Baso % (Auto) 0.4 % (0.0-1.8) 01/27/18 03:55 Lymph # 2.4 K/mm3 (1.2-5.4) 01/27/18 03:55 [place] # 0.6 K/mm3 (0.0-0.8) 01/27/18 03:55 Eos # 0.1 K/mm3 (0.0-0.4) 01/27/18 03:55 Baso # 0.0 K/mm3 (0.0-0.1) 01/27/18 03:55 Seg Neutrophils % 56.6 % (40.0-70.0) 01/27/18 03:55 Seg Neutrophils # 4.1 K/mm3 (1.8-7.7) 01/27/18 03:55 Sodium 138 mmol/L (137-145) 01/31/18 09:38 Potassium 3.6 mmol/L (3.6-5.0) 01/31/18 09:38 Chloride 102.3 mmol/L (98-107) 01/31/18 09:38 Carbon Dioxide 24 mmol/L (22-30) D 01/31/18 09:38 Anion Gap 15 mmol/L 01/31/18 09:38 BUN 11 mg/dL (7-17) 01/31/18 09:38 Creatinine 0.4 mg/dL (0.7-1.2) L 01/31/18 09:38 Estimated GFR > 60 ml/min 01/31/18 09:38 BUN/Creatinine Ratio 28 % 01/31/18 09:38 Glucose 252 mg/dL (65-100) H 01/31/18 09:38 POC Glucose 130 (70-105) H 02/06/18 07:29 Hemoglobin A1c 12.5 % (4-6) H 02/02/18 05:52 Calcium 9.8 mg/dL (8.4-10.2) 01/31/18 09:38 Magnesium 1.70 mg/dL (1.7-2.3) 01/31/18 09:38 Total Creatine Kinase 492 units/L (30-135) H 01/26/18 16:27 Troponin T < 0.010 ng/mL (0.00-0.029) 01/23/18 20:59 TSH 3.280 mlU/mL (0.270-4.200) 01/29/18 16:26
[2018-02-06] MEDS: LANTUS SUB-Q SCH (22:23)
--- NOTE | 2018-02-07 08:32 | Progress Note ---
Assessment and Plan Assessment and plan: Psychosis secondary to Bipolar/Schizophrenia. Psychiatry following. On scheduled ativan, olanzapine and PRN Haldol. Cont 1013 per Psych Sinus Tachycardia. Probably sec to physiologic response to agitation. HR controlled on Lopressor. Cardiology signed off. Questionable fall. Pelvic and chest x-ray negative. Cervical spine and head CT negative. Rhabdomyolysis, resolved. Hypokalemia and hypomagnesemia, resolved s/p repletion. DM2, query new onset -Blood glucose fairly controlled -Lantus dose increased and cont SSI, adjust as needed Acute metabolic acidosis, resolved Disposition: Patient is medically stable for discharge to inpatient psych facility. History Interval history: Jodi has been eating her meals she has not been conversant with staff or myself Hospitalist Physical - Physical exam Narrative exam: General.: Appears well, no distress, nontoxic HEENT: Moist mucous membranes, extraocular muscles intact, no lymphadenopathy Neck: supple Cardiac: S1-S2 heard Lungs: clear to auscultation bilaterally Abdomen: soft , nontender, nondistended, bowel sounds positive Extremities: no edema clubbing or cyanosis Skin: no rash or lesions Neurologic: no gross focal deficits Psych: disorganized behavior, opens eyes moves all extremities but does not cooperate with exam - Constitutional Vitals: Temp Pulse Resp BP Pulse Ox 97.6 F 83 20 102/62 98 02/07/18 05:25 02/07/18 05:33 02/07/18 05:25 02/07/18 05:25 02/07/18 05:33 General appearance: Present: no acute distress, other (pt was moaning) Results - Labs CBC & Chem 7: 01/27/18 03:55 01/31/18 09:38 Labs: Laboratory Last Values WBC 7.2 K/mm3 (4.5-11.0) 01/27/18 03:55 RBC 4.40 M/mm3 (3.65-5.03) 01/27/18 03:55 Hgb 13.7 gm/dl (10.1-14.3) 01/27/18 03:55 Hct 39.4 % (30.3-42.9) 01/27/18 03:55 MCV 89 fl (79-97) 01/27/18 03:55 MCH 31 pg (28-32) 01/27/18 03:55 MCHC 35 % (30-34) H 01/27/18 03:55 RDW 13.0 % (13.2-15.2) L 01/27/18 03:55 Plt Count 246 K/mm3 (140-440) 01/27/18 03:55 Lymph % (Auto) 33.3 % (13.4-35.0) 01/27/18 03:55 [place] % (Auto) 8.9 % (0.0-7.3) H 01/27/18 03:55 Eos % (Auto) 0.8 % (0.0-4.3) 01/27/18 03:55 Baso % (Auto) 0.4 % (0.0-1.8) 01/27/18 03:55 Lymph # 2.4 K/mm3 (1.2-5.4) 01/27/18 03:55 [place] # 0.6 K/mm3 (0.0-0.8) 01/27/18 03:55 Eos # 0.1 K/mm3 (0.0-0.4) 01/27/18 03:55 Baso # 0.0 K/mm3 (0.0-0.1) 01/27/18 03:55 Seg Neutrophils % 56.6 % (40.0-70.0) 01/27/18 03:55 Seg Neutrophils # 4.1 K/mm3 (1.8-7.7) 01/27/18 03:55 Sodium 138 mmol/L (137-145) 01/31/18 09:38 Potassium 3.6 mmol/L (3.6-5.0) 01/31/18 09:38 Chloride 102.3 mmol/L (98-107) 01/31/18 09:38 Carbon Dioxide 24 mmol/L (22-30) D 01/31/18 09:38 Anion Gap 15 mmol/L 01/31/18 09:38 BUN 11 mg/dL (7-17) 01/31/18 09:38 Creatinine 0.4 mg/dL (0.7-1.2) L 01/31/18 09:38 Estimated GFR > 60 ml/min 01/31/18 09:38 BUN/Creatinine Ratio 28 % 01/31/18 09:38 Glucose 252 mg/dL (65-100) H 01/31/18 09:38 POC Glucose 254 (70-105) H 02/06/18 21:14 Hemoglobin A1c 12.5 % (4-6) H 02/02/18 05:52 Calcium 9.8 mg/dL (8.4-10.2) 01/31/18 09:38 Magnesium 1.70 mg/dL (1.7-2.3) 01/31/18 09:38 Total Creatine Kinase 492 units/L (30-135) H 01/26/18 16:27 Troponin T < 0.010 ng/mL (0.00-0.029) 01/23/18 20:59 TSH 3.280 mlU/mL (0.270-4.200) 01/29/18 16:26
[2018-02-07] MEDS: HumaLOG SUB-Q SCH ×4 (08:33→21:40)
[2018-02-07] MEDS: LOVENOX SUB-Q SCH (10:04)
[2018-02-07] MEDS: K-DUR PO SCH (10:04)
[2018-02-07] MEDS: ATIVAN PO SCH ×2 (10:04→21:39)
[2018-02-07] MEDS: SODIUM CHLORIDE FLUSH SYRINGE 10 ML IV SCH ×2 (10:05→21:36)
[2018-02-07] MEDS: LOTRIMIN TP SCH ×2 (10:05→21:36)
[2018-02-07] MEDS: LOPRESSOR PO SCH ×2 (10:12→21:39)
--- NOTE | 2018-02-07 15:59 | Progress Note ---
Subjective - Reason for Consult Consult date: 02/07/18 Reason for consult: Psychiatric Follow-up Evaluation - Chief Complaint Chief complaint: Patient's speech is incoherent Patient is a 57-year-old female presents to the emergency department from [place] for a general medical evaluation. Today patient is laying in bed. She appears fidgety and restless. Sitter at bedside. Patient has on bilateral foot restraints. Patient is playing with kevin bear at times during the assessment. There's no change to the patient's presentation. No gestures of SI/HI's. Mental Status Exam - Vital signs Last Vital Signs Temp 97.6 F 02/07/18 05:25 Pulse 98 H 02/07/18 10:12 Resp 20 02/07/18 05:25 BP 109/70 02/07/18 10:12 Pulse Ox 98 02/07/18 05:33 - Exam Narrative exam: General Appearance: Causally Dressed-hospital gown, disheveled Eye Contact: Poor Orientation: Alert and oriented x 1 ( person) Attitude/Behavior: Unable to Assess Sensorium: Distracted Psychomotor & Musculoskeletal Activity: Laying in bed Mood: Unable to Assess Affect: Unable to Assess Speech/Language: Mumbles; speech incoherent Thought Processes: Unable to Assess Thought Content: Impoverished Perception: Unable to Assess Concentration/Attention: Impaired Suicidal Ideations/Plan: No suicidal gestures Homicidal Ideations/Plan: No homicidal gestures Judgment: Poor Insight: Poor Assessment and Plan Impression: Unspecified Psychosis. Today the patient is still in restraints with mumbled/incoherent speech during the assessment. Appears restless and fidgety. Although several attempts were made, provider unable to fully assess patient. Per staff patient has been agitated and has received PRN medications. Sitter is at bedside. DDx: Bipolar DO with psychosis, Schizophrenia Recommendation/Plan: 1. Continue 1013 with placement to inpatient psy services once medically clear. 2. Discontinue Zyprexa Zydis 15 mg PO HS for psychosis due to ineffectiveness. Will start Haldol 10mg po BID psychosis. Attempted to discuss metabolic side effects. 3. Continue Haldol 2 mg IM Q6hrs PRN for acute agitation. Attempted to discuss possible metabolic side effects of Zyprexa with patient. Continue to hydrate the patient. D/C restraints when not indicated. Monitor the patient for catatonia. 4. Will continue to monitor mood, psychosis, sleep, appetite, agitation, compliance, and side effects. 5. EKG ordered to have a baseline of patient's QT interval.
[2018-02-07] MEDS: LANTUS SUB-Q SCH (21:40)
[2018-02-08] MEDS: HALDOL IM PRN ×2 (01:11→09:57)
[2018-02-08] MEDS: HumaLOG SUB-Q SCH ×4 (08:48→22:20)
[2018-02-08] MEDS: ATIVAN PO SCH ×2 (09:57→23:49)
[2018-02-08] MEDS: LOPRESSOR PO SCH ×2 (09:57→22:15)
[2018-02-08] MEDS: HALDOL PO SCH ×2 (09:57→23:49)
[2018-02-08] MEDS: K-DUR PO SCH (09:57)
[2018-02-08] MEDS: LOVENOX SUB-Q SCH (09:57)
--- NOTE | 2018-02-08 10:48 | Progress Note ---
Subjective - Reason for Consult Consult date: 02/08/18 Reason for consult: Psychiatry Follow-up - Chief Complaint Chief complaint: The patient's is still incoherent" Patient is a 57-year-old female presents to the emergency department from [place] for a general medical evaluation. Today the patient's hands are still in mittens along being restrained (waist restraint). She was able to follow some simple commands. No gestures SI/HI's. Mental Status Exam - Vital signs Last Vital Signs Temp 97.9 F 02/08/18 01:54 Pulse 74 02/08/18 01:54 Resp 20 02/08/18 01:54 BP 118/69 02/08/18 09:57 Pulse Ox 96 02/08/18 01:54 - Exam Narrative exam: MSE: Appearance: in a hospital gown Behavior: eyes are open Speech: incoherent Mood: unable to assess Affect: flat Thought Process: unable to assess Thought Content: unable to assess Motor Activity: in restraints Cognition: awake Insight: unable to assess Judgment: unable to assess Assessment and Plan Impression: Unspecified Psychosis. Today the patient's hands are still in mittens along being restrained (waist restraint). DDx: Bipolar DO with psychosis, Schizophrenia Recommendation/Plan: The patient's 1013 will tomorrow. The patient will be reassessed in 24 hours to determine if the 1013 will be extended. Continue Haldol 10 mg PO BID, Ativan 0.5 mg PO BID for anxiety, and Haldol 2 mg IM Q6hrs PRN for acute agitation.
[2018-02-08] MEDS: SODIUM CHLORIDE FLUSH SYRINGE 10 ML IV SCH (11:48)
[2018-02-08] MEDS: LOTRIMIN TP SCH ×2 (11:50→22:17)
--- NOTE | 2018-02-08 15:45 | Progress Note ---
Assessment and Plan Assessment and plan: Psychosis secondary to Bipolar/Schizophrenia. Psychiatry following. On scheduled ativan, olanzapine and PRN Haldol. Cont 1013 per Psych Sinus Tachycardia. Probably sec to physiologic response to agitation. HR controlled on Lopressor. Cardiology signed off. Questionable fall. Pelvic and chest x-ray negative. Cervical spine and head CT negative. Rhabdomyolysis, resolved. Hypokalemia and hypomagnesemia, resolved s/p repletion. DM2, query new onset -Blood glucose fairly controlled -Lantus dose increased and cont SSI, adjust as needed Acute metabolic acidosis, resolved Disposition: Patient is medically stable for discharge to inpatient psych facility. History Interval history: Jodi has been eating her meals she has not been conversant with staff or myself Hospitalist Physical - Physical exam Narrative exam: General.: Appears well, no distress, nontoxic HEENT: Moist mucous membranes, extraocular muscles intact, no lymphadenopathy Neck: supple Cardiac: S1-S2 heard Lungs: clear to auscultation bilaterally Abdomen: soft , nontender, nondistended, bowel sounds positive Extremities: no edema clubbing or cyanosis Skin: no rash or lesions Neurologic: no gross focal deficits Psych: disorganized behavior, opens eyes moves all extremities but does not cooperate with exam - Constitutional Vitals: Temp Pulse Resp BP Pulse Ox 97.9 F 74 20 118/69 96 02/08/18 01:54 02/08/18 01:54 02/08/18 01:54 02/08/18 09:57 02/08/18 01:54 General appearance: Present: no acute distress, other (pt was moaning) Results - Labs CBC & Chem 7: 01/27/18 03:55 01/31/18 09:38 Labs: Laboratory Last Values WBC 7.2 K/mm3 (4.5-11.0) 01/27/18 03:55 RBC 4.40 M/mm3 (3.65-5.03) 01/27/18 03:55 Hgb 13.7 gm/dl (10.1-14.3) 01/27/18 03:55 Hct 39.4 % (30.3-42.9) 01/27/18 03:55 MCV 89 fl (79-97) 01/27/18 03:55 MCH 31 pg (28-32) 01/27/18 03:55 MCHC 35 % (30-34) H 01/27/18 03:55 RDW 13.0 % (13.2-15.2) L 01/27/18 03:55 Plt Count 246 K/mm3 (140-440) 01/27/18 03:55 Lymph % (Auto) 33.3 % (13.4-35.0) 01/27/18 03:55 [place] % (Auto) 8.9 % (0.0-7.3) H 01/27/18 03:55 Eos % (Auto) 0.8 % (0.0-4.3) 01/27/18 03:55 Baso % (Auto) 0.4 % (0.0-1.8) 01/27/18 03:55 Lymph # 2.4 K/mm3 (1.2-5.4) 01/27/18 03:55 [place] # 0.6 K/mm3 (0.0-0.8) 01/27/18 03:55 Eos # 0.1 K/mm3 (0.0-0.4) 01/27/18 03:55 Baso # 0.0 K/mm3 (0.0-0.1) 01/27/18 03:55 Seg Neutrophils % 56.6 % (40.0-70.0) 01/27/18 03:55 Seg Neutrophils # 4.1 K/mm3 (1.8-7.7) 01/27/18 03:55 Sodium 138 mmol/L (137-145) 01/31/18 09:38 Potassium 3.6 mmol/L (3.6-5.0) 01/31/18 09:38 Chloride 102.3 mmol/L (98-107) 01/31/18 09:38 Carbon Dioxide 24 mmol/L (22-30) D 01/31/18 09:38 Anion Gap 15 mmol/L 01/31/18 09:38 BUN 11 mg/dL (7-17) 01/31/18 09:38 Creatinine 0.4 mg/dL (0.7-1.2) L 01/31/18 09:38 Estimated GFR > 60 ml/min 01/31/18 09:38 BUN/Creatinine Ratio 28 % 01/31/18 09:38 Glucose 252 mg/dL (65-100) H 01/31/18 09:38 POC Glucose 188 (70-105) H 02/08/18 08:46 Hemoglobin A1c 12.5 % (4-6) H 02/02/18 05:52 Calcium 9.8 mg/dL (8.4-10.2) 01/31/18 09:38 Magnesium 1.70 mg/dL (1.7-2.3) 01/31/18 09:38 Total Creatine Kinase 492 units/L (30-135) H 01/26/18 16:27 Troponin T < 0.010 ng/mL (0.00-0.029) 01/23/18 20:59 TSH 3.280 mlU/mL (0.270-4.200) 01/29/18 16:26
[2018-02-08] MEDS: LANTUS SUB-Q SCH (23:50)
[2018-02-09] MEDS: HumaLOG SUB-Q SCH ×4 (08:41→22:43)
[2018-02-09 10:13] LABS: Bilirubin,Urine NEG (Negative); Blood,Urine LG (Negative); Color,Urine Yellow (Yellow); Mucus,Urine 2+ /HPF; Urobilinogen,Urine < 2.0 mg/dL (<2.0)
[2018-02-09 10:16] LABS: RBC,Urine > 182.0 /HPF (0.0-6.0); WBC,Urine < 1.0 /HPF (0.0-6.0)
[2018-02-09 10:20] LABS: Amphetamine Screen,Urine PRESUMPTIVE NEGATIVE; Benzodiazepines Screen,Urine PRESUMPTIVE NEGATIVE; Cannabinoid Screen,Urine PRESUMPTIVE NEGATIVE; Cocaine Screen,Urine PRESUMPTIVE NEGATIVE; Methadone Screen,Urine PRESUMPTIVE NEGATIVE; Opiate Screen,Urine PRESUMPTIVE NEGATIVE
[2018-02-09] MEDS: HALDOL PO SCH ×2 (11:23→22:41)
[2018-02-09] MEDS: LOPRESSOR PO SCH ×2 (11:24→22:42)
[2018-02-09] MEDS: K-DUR PO SCH (11:24)
[2018-02-09] MEDS: ATIVAN PO SCH ×2 (11:24→22:44)
[2018-02-09] MEDS: SODIUM CHLORIDE FLUSH SYRINGE 10 ML IV SCH ×3 (11:25→22:46)
[2018-02-09] MEDS: LOVENOX SUB-Q SCH (11:25)
[2018-02-09] MEDS: LOTRIMIN TP SCH ×2 (11:26→22:43)
--- NOTE | 2018-02-09 13:41 | Progress Note ---
Subjective - Reason for Consult Consult date: 02/09/18 Reason for consult: Psychiatry Follow-up - Chief Complaint Chief complaint: "The patient still has incoherent speech" 57-year-old female presents to the emergency department from [place] for a general medical evaluation. Today the patient is calm with incoherent speech during the assessment. She had to be redirected several times because she was trying to get out of bed. Per the sitter, the patient had a screaming episode. The patient is fidgety and restless. No gestures of SI/HI's. Mental Status Exam - Vital signs Last Vital Signs Temp 97.7 F 02/09/18 11:50 Pulse 81 02/09/18 11:50 Resp 20 02/09/18 11:50 BP 117/76 02/09/18 11:50 Pulse Ox 100 02/09/18 11:50 - Exam Narrative exam: MSE: Appearance: in a hospital gown Behavior: eyes are open Speech: incoherent Mood: unable to assess Affect: flat Thought Process: unable to assess Thought Content: unable to assess Motor Activity: sitting up in bed Cognition: awake Insight: unable to assess Judgment: unable to assess Assessment and Plan Impression: Unspecified Psychosis. Today the patient is calm with incoherent speech during the assessment. DDx: Bipolar DO with psychosis, Schizophrenia Recommendation/Plan: The patient's 1013 was extended. Placement is still ongoing for inpatient psy services. Continue Haldol 10 mg PO BID, Ativan 0.5 mg PO BID for anxiety, and Haldol 2 mg IM Q6hrs PRN for acute agitation.
[2018-02-09] MEDS: HALDOL IM PRN (15:47)
--- NOTE | 2018-02-09 18:08 | Progress Note ---
Assessment and Plan Assessment and plan: Psychosis secondary to Bipolar/Schizophrenia. Psychiatry following. continue to optimize meds per MH, awaiting placement, cont 1013 Sinus Tachycardia. Probably sec to physiologic response to agitation. HR controlled on Lopressor. Cardiology signed off. Questionable fall. Pelvic and chest x-ray negative. Cervical spine and head CT negative. Rhabdomyolysis, resolved. Hypokalemia and hypomagnesemia, resolved s/p repletion. DM2, query new onset -Blood glucose fairly controlled -Lantus dose increased and cont SSI, adjust as needed Acute metabolic acidosis, resolved Disposition: Patient is medically stable for discharge to inpatient psych facility. History Interval history: Jodi has been eating her meals she has not been conversant with staff or myself Hospitalist Physical - Physical exam Narrative exam: General.: Appears well, no distress, nontoxic HEENT: Moist mucous membranes, extraocular muscles intact, no lymphadenopathy Neck: supple Cardiac: S1-S2 heard Lungs: clear to auscultation bilaterally Abdomen: soft , nontender, nondistended, bowel sounds positive Extremities: no edema clubbing or cyanosis Skin: no rash or lesions Neurologic: no gross focal deficits Psych: disorganized behavior, opens eyes moves all extremities but does not cooperate with exam - Constitutional Vitals: Temp Pulse Resp BP Pulse Ox 97.7 F 81 20 117/76 100 02/09/18 11:50 02/09/18 11:50 02/09/18 11:50 02/09/18 11:50 02/09/18 11:50 General appearance: Present: no acute distress, other (pt was moaning) Results - Labs CBC & Chem 7: 01/27/18 03:55 01/31/18 09:38 Labs: Laboratory Last Values WBC 7.2 K/mm3 (4.5-11.0) 01/27/18 03:55 RBC 4.40 M/mm3 (3.65-5.03) 01/27/18 03:55 Hgb 13.7 gm/dl (10.1-14.3) 01/27/18 03:55 Hct 39.4 % (30.3-42.9) 01/27/18 03:55 MCV 89 fl (79-97) 01/27/18 03:55 MCH 31 pg (28-32) 01/27/18 03:55 MCHC 35 % (30-34) H 01/27/18 03:55 RDW 13.0 % (13.2-15.2) L 01/27/18 03:55 Plt Count 246 K/mm3 (140-440) 01/27/18 03:55 Lymph % (Auto) 33.3 % (13.4-35.0) 01/27/18 03:55 [place] % (Auto) 8.9 % (0.0-7.3) H 01/27/18 03:55 Eos % (Auto) 0.8 % (0.0-4.3) 01/27/18 03:55 Baso % (Auto) 0.4 % (0.0-1.8) 01/27/18 03:55 Lymph # 2.4 K/mm3 (1.2-5.4) 01/27/18 03:55 [place] # 0.6 K/mm3 (0.0-0.8) 01/27/18 03:55 Eos # 0.1 K/mm3 (0.0-0.4) 01/27/18 03:55 Baso # 0.0 K/mm3 (0.0-0.1) 01/27/18 03:55 Seg Neutrophils % 56.6 % (40.0-70.0) 01/27/18 03:55 Seg Neutrophils # 4.1 K/mm3 (1.8-7.7) 01/27/18 03:55 Sodium 138 mmol/L (137-145) 01/31/18 09:38 Potassium 3.6 mmol/L (3.6-5.0) 01/31/18 09:38 Chloride 102.3 mmol/L (98-107) 01/31/18 09:38 Carbon Dioxide 24 mmol/L (22-30) D 01/31/18 09:38 Anion Gap 15 mmol/L 01/31/18 09:38 BUN 11 mg/dL (7-17) 01/31/18 09:38 Creatinine 0.4 mg/dL (0.7-1.2) L 01/31/18 09:38 Estimated GFR > 60 ml/min 01/31/18 09:38 BUN/Creatinine Ratio 28 % 01/31/18 09:38 Glucose 252 mg/dL (65-100) H 01/31/18 09:38 POC Glucose 202 (70-105) H 02/08/18 21:12 Hemoglobin A1c 12.5 % (4-6) H 02/02/18 05:52 Calcium 9.8 mg/dL (8.4-10.2) 01/31/18 09:38 Magnesium 1.70 mg/dL (1.7-2.3) 01/31/18 09:38 Total Creatine Kinase 492 units/L (30-135) H 01/26/18 16:27 Troponin T < 0.010 ng/mL (0.00-0.029) 01/23/18 20:59 TSH 3.280 mlU/mL (0.270-4.200) 01/29/18 16:26 Urine Color Yellow (Yellow) 02/09/18 10:00 Urine Turbidity Slightly-cloudy (Clear) 02/09/18 10:00 Urine pH 5.0 (5.0-7.0) 02/09/18 10:00 Ur Specific [place] 1.021 (1.003-1.030) 02/09/18 10:00 Urine Protein 30 mg/dl mg/dL (Negative) 02/09/18 10:00 Urine Glucose (UA) >=500 mg/dL (Negative) 02/09/18 10:00 Urine Ketones Neg mg/dL (Negative) 02/09/18 10:00 Urine Blood Lg (Negative) 02/09/18 10:00 Urine Nitrite Neg (Negative) 02/09/18 10:00 Urine Bilirubin Neg (Negative) 02/09/18 10:00 Urine Urobilinogen < 2.0 mg/dL (<2.0) 02/09/18 10:00 Ur Leukocyte Esterase Neg (Negative) 02/09/18 10:00 Urine WBC (Auto) < 1.0 /HPF (0.0-6.0) 02/09/18 10:00 Urine RBC (Auto) > 182.0 /HPF (0.0-6.0) 02/09/18 10:00 U Epithel Cells (Auto) < 1.0 /HPF (0-13.0) 02/09/18 10:00 Urine Mucus 2+ /HPF 02/09/18 10:00 Urine Opiates Screen Presumptive negative 02/09/18 10:00 Urine Methadone Screen Presumptive negative 02/09/18 10:00 Ur Barbiturates Screen Presumptive negative 02/09/18 10:00 Ur Phencyclidine Scrn Presumptive negative 02/09/18 10:00 Ur Amphetamines Screen Presumptive negative 02/09/18 10:00 U Benzodiazepines Scrn Presumptive negative 02/09/18 10:00 Urine Cocaine Screen Presumptive negative 02/09/18 10:00 U Marijuana (THC) Screen Presumptive negative 02/09/18 10:00 Drugs of Abuse Note Disclamer 02/09/18 10:00
[2018-02-09] MEDS: LANTUS SUB-Q SCH (22:40)
[2018-02-10] MEDS: HumaLOG SUB-Q SCH ×4 (07:30→21:37)
[2018-02-10] MEDS: K-DUR PO SCH (10:34)
[2018-02-10] MEDS: HALDOL PO SCH ×2 (10:35→21:29)
[2018-02-10] MEDS: LOPRESSOR PO SCH ×2 (10:35→21:29)
[2018-02-10] MEDS: LOVENOX SUB-Q SCH (10:35)
[2018-02-10] MEDS: ATIVAN PO SCH ×2 (10:35→21:29)
[2018-02-10] MEDS: LOTRIMIN TP SCH ×2 (10:37→21:33)
[2018-02-10] MEDS: SODIUM CHLORIDE FLUSH SYRINGE 10 ML IV SCH ×2 (10:38→21:32)
--- NOTE | 2018-02-10 16:36 | Progress Note ---
Assessment and Plan Assessment and plan: Psychosis secondary to Bipolar/Schizophrenia. Psychiatry following. continue to optimize meds per MH, awaiting placement, cont 1013 Sinus Tachycardia. Probably sec to physiologic response to agitation. HR controlled on Lopressor. Cardiology signed off. Questionable fall. Pelvic and chest x-ray negative. Cervical spine and head CT negative. Rhabdomyolysis, resolved. Hypokalemia and hypomagnesemia, resolved s/p repletion. DM2, query new onset -Blood glucose fairly controlled -Lantus dose increased and cont SSI, adjust as needed Acute metabolic acidosis, resolved Disposition: Patient is medically stable for discharge to inpatient psych facility. History Interval history: Jodi has been eating her meals she has not been conversant with staff or myself Hospitalist Physical - Physical exam Narrative exam: General.: Appears well, no distress, nontoxic HEENT: Moist mucous membranes, extraocular muscles intact, no lymphadenopathy Neck: supple Cardiac: S1-S2 heard Lungs: clear to auscultation bilaterally Abdomen: soft , nontender, nondistended, bowel sounds positive Extremities: no edema clubbing or cyanosis Skin: no rash or lesions Neurologic: no gross focal deficits Psych: disorganized behavior, opens eyes moves all extremities but does not cooperate with exam - Constitutional Vitals: Temp Pulse Resp BP Pulse Ox 98.5 F 78 20 107/69 96 02/10/18 11:25 02/10/18 11:25 02/10/18 12:00 02/10/18 11:25 02/10/18 11:25 General appearance: Present: no acute distress, other (pt was moaning) Results - Labs CBC & Chem 7: 01/27/18 03:55 01/31/18 09:38 Labs: Laboratory Last Values WBC 7.2 K/mm3 (4.5-11.0) 01/27/18 03:55 RBC 4.40 M/mm3 (3.65-5.03) 01/27/18 03:55 Hgb 13.7 gm/dl (10.1-14.3) 01/27/18 03:55 Hct 39.4 % (30.3-42.9) 01/27/18 03:55 MCV 89 fl (79-97) 01/27/18 03:55 MCH 31 pg (28-32) 01/27/18 03:55 MCHC 35 % (30-34) H 01/27/18 03:55 RDW 13.0 % (13.2-15.2) L 01/27/18 03:55 Plt Count 246 K/mm3 (140-440) 01/27/18 03:55 Lymph % (Auto) 33.3 % (13.4-35.0) 01/27/18 03:55 [place] % (Auto) 8.9 % (0.0-7.3) H 01/27/18 03:55 Eos % (Auto) 0.8 % (0.0-4.3) 01/27/18 03:55 Baso % (Auto) 0.4 % (0.0-1.8) 01/27/18 03:55 Lymph # 2.4 K/mm3 (1.2-5.4) 01/27/18 03:55 [place] # 0.6 K/mm3 (0.0-0.8) 01/27/18 03:55 Eos # 0.1 K/mm3 (0.0-0.4) 01/27/18 03:55 Baso # 0.0 K/mm3 (0.0-0.1) 01/27/18 03:55 Seg Neutrophils % 56.6 % (40.0-70.0) 01/27/18 03:55 Seg Neutrophils # 4.1 K/mm3 (1.8-7.7) 01/27/18 03:55 Sodium 138 mmol/L (137-145) 01/31/18 09:38 Potassium 3.6 mmol/L (3.6-5.0) 01/31/18 09:38 Chloride 102.3 mmol/L (98-107) 01/31/18 09:38 Carbon Dioxide 24 mmol/L (22-30) D 01/31/18 09:38 Anion Gap 15 mmol/L 01/31/18 09:38 BUN 11 mg/dL (7-17) 01/31/18 09:38 Creatinine 0.4 mg/dL (0.7-1.2) L 01/31/18 09:38 Estimated GFR > 60 ml/min 01/31/18 09:38 BUN/Creatinine Ratio 28 % 01/31/18 09:38 Glucose 252 mg/dL (65-100) H 01/31/18 09:38 POC Glucose 219 (70-105) H 02/10/18 11:17 Hemoglobin A1c 12.5 % (4-6) H 02/02/18 05:52 Calcium 9.8 mg/dL (8.4-10.2) 01/31/18 09:38 Magnesium 1.70 mg/dL (1.7-2.3) 01/31/18 09:38 Total Creatine Kinase 492 units/L (30-135) H 01/26/18 16:27 Troponin T < 0.010 ng/mL (0.00-0.029) 01/23/18 20:59 TSH 3.280 mlU/mL (0.270-4.200) 01/29/18 16:26 Urine Color Yellow (Yellow) 02/09/18 10:00 Urine Turbidity Slightly-cloudy (Clear) 02/09/18 10:00 Urine pH 5.0 (5.0-7.0) 02/09/18 10:00 Ur Specific [place] 1.021 (1.003-1.030) 02/09/18 10:00 Urine Protein 30 mg/dl mg/dL (Negative) 02/09/18 10:00 Urine Glucose (UA) >=500 mg/dL (Negative) 02/09/18 10:00 Urine Ketones Neg mg/dL (Negative) 02/09/18 10:00 Urine Blood Lg (Negative) 02/09/18 10:00 Urine Nitrite Neg (Negative) 02/09/18 10:00 Urine Bilirubin Neg (Negative) 02/09/18 10:00 Urine Urobilinogen < 2.0 mg/dL (<2.0) 02/09/18 10:00 Ur Leukocyte Esterase Neg (Negative) 02/09/18 10:00 Urine WBC (Auto) < 1.0 /HPF (0.0-6.0) 02/09/18 10:00 Urine RBC (Auto) > 182.0 /HPF (0.0-6.0) 02/09/18 10:00 U Epithel Cells (Auto) < 1.0 /HPF (0-13.0) 02/09/18 10:00 Urine Mucus 2+ /HPF 02/09/18 10:00 Urine Opiates Screen Presumptive negative 02/09/18 10:00 Urine Methadone Screen Presumptive negative 02/09/18 10:00 Ur Barbiturates Screen Presumptive negative 02/09/18 10:00 Ur Phencyclidine Scrn Presumptive negative 02/09/18 10:00 Ur Amphetamines Screen Presumptive negative 02/09/18 10:00 U Benzodiazepines Scrn Presumptive negative 02/09/18 10:00 Urine Cocaine Screen Presumptive negative 02/09/18 10:00 U Marijuana (THC) Screen Presumptive negative 02/09/18 10:00 Drugs of Abuse Note Disclamer 02/09/18 10:00
--- NOTE | 2018-02-10 19:18 | Progress Note ---
Subjective - Reason for Consult Consult date: 02/10/18 Reason for consult: follow up - Chief Complaint Chief complaint: "I can spell Jodi backwards." 57-year-old female presents to the emergency department from [place] for a general medical evaluation. She is in restraints. Staff reports she is not sleeping. Staff report she eats well. She makes eye contact. Either her responses are not logical, or she does not respond to questions. The patient is restless. No gestures of SI/HI's. Mental Status Exam - Vital signs Last Vital Signs Temp 98.5 F 02/10/18 11:25 Pulse 78 02/10/18 11:25 Resp 20 02/10/18 12:00 BP 107/69 02/10/18 11:25 Pulse Ox 96 02/10/18 11:25 - Exam Narrative exam: General Appearance: Causally Dressed-hospital gown, ADL's are being completed with assistance from staff (diaper), in restraints Eye Contact: fair Orientation: to person Attitude/Behavior: Unable to Assess Sensorium: Unable to Assess Psychomotor & Musculoskeletal Activity: no abnormal movements observed Mood: Unable to Assess Affect: Unable to Assess Speech/Language: mostly incoherent Thought Processes: Unable to Assess Thought Content: Unable to Assess Perception: Unable to Assess Concentration/Attention: Unable to Assess Suicidal Ideations/Plan: Patient denies. Homicidal Ideations/Plan: Patient denies. Judgment: Poor Insight: Poor Assessment and Plan Impression: Unspecified Psychosis. Today the patient is calm with occasional coherent speech during the assessment. DDx: Bipolar DO with psychosis, Schizophrenia DDx: developmental disability Recommendation/Plan: The patient's 1013 was extended. Placement is still ongoing for inpatient psy services. Continue Haldol 10 mg PO BID, Ativan 0.5 mg PO BID for anxiety, and Haldol 2 mg IM Q6hrs PRN for acute agitation.
[2018-02-10] MEDS: LANTUS SUB-Q SCH (21:33)
[2018-02-11] MEDS: LOVENOX SUB-Q SCH (09:07)
[2018-02-11] MEDS: K-DUR PO SCH (09:08)
[2018-02-11] MEDS: LOPRESSOR PO SCH ×2 (09:08→21:33)
[2018-02-11] MEDS: HALDOL PO SCH ×2 (09:11→21:26)
[2018-02-11] MEDS: HumaLOG SUB-Q SCH ×4 (09:11→21:31)
[2018-02-11] MEDS: ATIVAN PO SCH ×2 (09:11→21:26)
[2018-02-11] MEDS: SODIUM CHLORIDE FLUSH SYRINGE 10 ML IV SCH ×2 (09:12→21:46)
[2018-02-11] MEDS: LOTRIMIN TP SCH ×2 (09:13→21:33)
--- NOTE | 2018-02-11 10:21 | Progress Note ---
Assessment and Plan Assessment and plan: Psychosis secondary to Bipolar/Schizophrenia. Psychiatry following. continue to optimize meds per MH, awaiting placement, cont 1013 Sinus Tachycardia. Probably sec to physiologic response to agitation. HR controlled on Lopressor. Cardiology signed off. Questionable fall. Pelvic and chest x-ray negative. Cervical spine and head CT negative. Rhabdomyolysis, resolved. Hypokalemia and hypomagnesemia, resolved s/p repletion. DM2, query new onset -Blood glucose fairly controlled -Lantus dose increased and cont SSI, adjust as needed Acute metabolic acidosis, resolved Disposition: Patient is medically stable for discharge to inpatient psych facility. History Interval history: Jodi has been eating her meals she has not been conversant with staff or myself Hospitalist Physical - Physical exam Narrative exam: General.: Appears well, no distress, nontoxic HEENT: Moist mucous membranes, extraocular muscles intact, no lymphadenopathy Neck: supple Cardiac: S1-S2 heard Lungs: clear to auscultation bilaterally Abdomen: soft , nontender, nondistended, bowel sounds positive Extremities: no edema clubbing or cyanosis Skin: no rash or lesions Neurologic: no gross focal deficits Psych: disorganized behavior, opens eyes moves all extremities but does not cooperate with exam - Constitutional Vitals: Temp Pulse Resp BP Pulse Ox 98.5 F 81 20 120/71 96 02/10/18 11:25 02/11/18 09:08 02/10/18 12:00 02/10/18 21:29 02/10/18 11:25 General appearance: Present: no acute distress, other (pt was moaning) Results - Labs CBC & Chem 7: 01/27/18 03:55 01/31/18 09:38 Labs: Laboratory Last Values WBC 7.2 K/mm3 (4.5-11.0) 01/27/18 03:55 RBC 4.40 M/mm3 (3.65-5.03) 01/27/18 03:55 Hgb 13.7 gm/dl (10.1-14.3) 01/27/18 03:55 Hct 39.4 % (30.3-42.9) 01/27/18 03:55 MCV 89 fl (79-97) 01/27/18 03:55 MCH 31 pg (28-32) 01/27/18 03:55 MCHC 35 % (30-34) H 01/27/18 03:55 RDW 13.0 % (13.2-15.2) L 01/27/18 03:55 Plt Count 246 K/mm3 (140-440) 01/27/18 03:55 Lymph % (Auto) 33.3 % (13.4-35.0) 01/27/18 03:55 [place] % (Auto) 8.9 % (0.0-7.3) H 01/27/18 03:55 Eos % (Auto) 0.8 % (0.0-4.3) 01/27/18 03:55 Baso % (Auto) 0.4 % (0.0-1.8) 01/27/18 03:55 Lymph # 2.4 K/mm3 (1.2-5.4) 01/27/18 03:55 [place] # 0.6 K/mm3 (0.0-0.8) 01/27/18 03:55 Eos # 0.1 K/mm3 (0.0-0.4) 01/27/18 03:55 Baso # 0.0 K/mm3 (0.0-0.1) 01/27/18 03:55 Seg Neutrophils % 56.6 % (40.0-70.0) 01/27/18 03:55 Seg Neutrophils # 4.1 K/mm3 (1.8-7.7) 01/27/18 03:55 Sodium 138 mmol/L (137-145) 01/31/18 09:38 Potassium 3.6 mmol/L (3.6-5.0) 01/31/18 09:38 Chloride 102.3 mmol/L (98-107) 01/31/18 09:38 Carbon Dioxide 24 mmol/L (22-30) D 01/31/18 09:38 Anion Gap 15 mmol/L 01/31/18 09:38 BUN 11 mg/dL (7-17) 01/31/18 09:38 Creatinine 0.4 mg/dL (0.7-1.2) L 01/31/18 09:38 Estimated GFR > 60 ml/min 01/31/18 09:38 BUN/Creatinine Ratio 28 % 01/31/18 09:38 Glucose 252 mg/dL (65-100) H 01/31/18 09:38 POC Glucose 147 (70-105) H 02/11/18 07:18 Hemoglobin A1c 12.5 % (4-6) H 02/02/18 05:52 Calcium 9.8 mg/dL (8.4-10.2) 01/31/18 09:38 Magnesium 1.70 mg/dL (1.7-2.3) 01/31/18 09:38 Total Creatine Kinase 492 units/L (30-135) H 01/26/18 16:27 Troponin T < 0.010 ng/mL (0.00-0.029) 01/23/18 20:59 TSH 3.280 mlU/mL (0.270-4.200) 01/29/18 16:26 Urine Color Yellow (Yellow) 02/09/18 10:00 Urine Turbidity Slightly-cloudy (Clear) 02/09/18 10:00 Urine pH 5.0 (5.0-7.0) 02/09/18 10:00 Ur Specific [place] 1.021 (1.003-1.030) 02/09/18 10:00 Urine Protein 30 mg/dl mg/dL (Negative) 02/09/18 10:00 Urine Glucose (UA) >=500 mg/dL (Negative) 02/09/18 10:00 Urine Ketones Neg mg/dL (Negative) 02/09/18 10:00 Urine Blood Lg (Negative) 02/09/18 10:00 Urine Nitrite Neg (Negative) 02/09/18 10:00 Urine Bilirubin Neg (Negative) 02/09/18 10:00 Urine Urobilinogen < 2.0 mg/dL (<2.0) 02/09/18 10:00 Ur Leukocyte Esterase Neg (Negative) 02/09/18 10:00 Urine WBC (Auto) < 1.0 /HPF (0.0-6.0) 02/09/18 10:00 Urine RBC (Auto) > 182.0 /HPF (0.0-6.0) 02/09/18 10:00 U Epithel Cells (Auto) < 1.0 /HPF (0-13.0) 02/09/18 10:00 Urine Mucus 2+ /HPF 02/09/18 10:00 Urine Opiates Screen Presumptive negative 02/09/18 10:00 Urine Methadone Screen Presumptive negative 02/09/18 10:00 Ur Barbiturates Screen Presumptive negative 02/09/18 10:00 Ur Phencyclidine Scrn Presumptive negative 02/09/18 10:00 Ur Amphetamines Screen Presumptive negative 02/09/18 10:00 U Benzodiazepines Scrn Presumptive negative 02/09/18 10:00 Urine Cocaine Screen Presumptive negative 02/09/18 10:00 U Marijuana (THC) Screen Presumptive negative 02/09/18 10:00 Drugs of Abuse Note Disclamer 02/09/18 10:00
[2018-02-11] MEDS: LANTUS SUB-Q SCH (21:26)
--- NOTE | 2018-02-11 23:40 | Progress Note ---
Subjective - Reason for Consult Consult date: 02/11/18 Reason for consult: Psychiatric Follow-up Evaluation - Chief Complaint Chief complaint: " I feel fine " Patient is a 57-year-old female that presents to the emergency department from [place] for a general medical evaluation. She is in 4 point restraints. Patient reports poor sleep but good appetite. Unlike previous days, patient is more verbal and able to answer provider questions. Today patient presents cooperative but anxious during the assessment. The patient is restless. No gestures of SI/HI's. Mental Status Exam - Vital signs Last Vital Signs Temp 98.5 F 02/10/18 11:25 Pulse 72 02/11/18 21:33 Resp 20 02/11/18 08:00 BP 132/78 02/11/18 21:33 Pulse Ox 96 02/10/18 11:25 - Exam Narrative exam: Narrative exam: General Appearance: Causally Dressed-hospital gown, disheveled Eye Contact: Intermittent Orientation: Alert and oriented x 1 ( person) Attitude/Behavior: Cooperative Sensorium: Distracted Psychomotor & Musculoskeletal Activity: Laying in bed Mood: " Fine" Affect: Constricted Speech/Language: Loud, more coherent Thought Content: Impoverished Perception: Unable to Assess Concentration/Attention: Impaired Suicidal Ideations/Plan: No suicidal gestures Homicidal Ideations/Plan: No homicidal gestures Judgment: Poor Insight: Poor Assessment and Plan Impression: Unspecified Psychosis. Today the patient is cooperative but anxious during the assessment. Patient presents more verbal with occasional coherent speech during the assessment. No suicidal/ homicidal gestures. DDx: Bipolar DO with psychosis, Schizophrenia DDx: developmental disability Recommendation/Plan: 1. Will continue patient's 1013. Placement is still ongoing for inpatient psychiatric services. 2. Continue Haldol 10 mg PO BID, Ativan 0.5 mg PO BID for anxiety, and Haldol 2 mg IM Q6hrs PRN for acute agitation. 3. Will continue to monitor psychosis, mood, sleep, appetite, compliance, and side effects.
[2018-02-12] MEDS: HumaLOG SUB-Q SCH ×4 (08:06→21:34)
[2018-02-12 09:21] LABS: Basophils % (Auto) 0.3 % (0.0-1.8); Eosinophils % (Auto) 0.6 % (0.0-4.3); Hematocrit 39.2 % (30.3-42.9); Hemoglobin 13.2 gm/dl (10.1-14.3); Lymphocytes # (Auto) 1.7 K/mm3 (1.2-5.4); Lymphocytes % (Auto) 39.1 % (13.4-35.0); Mean Corpuscular HGB Conc 34 % (30-34); Mean Corpuscular Hemoglobin 31 pg (28-32); Mean Corpuscular Volume 92 fl (79-97); Monocytes # (Auto) 0.3 K/mm3 (0.0-0.8); Monocytes % (Auto) 7.7 % (0.0-7.3); Platelet Count 240 K/mm3 (140-440); Red Blood Count 4.27 M/mm3 (3.65-5.03); Red Cell Distribution Width 13.4 % (13.2-15.2)
[2018-02-12] MEDS: K-DUR PO SCH (09:32)
[2018-02-12] MEDS: HALDOL PO SCH ×2 (09:32→21:28)
[2018-02-12] MEDS: LOVENOX SUB-Q SCH (09:32)
[2018-02-12] MEDS: ATIVAN PO SCH ×2 (09:32→21:28)
[2018-02-12] MEDS: LOPRESSOR PO SCH ×2 (09:32→21:40)
[2018-02-12] MEDS: LOTRIMIN TP SCH (09:34)
[2018-02-12] MEDS: SODIUM CHLORIDE FLUSH SYRINGE 10 ML IV SCH (09:41)
[2018-02-12 09:47] LABS: Alanine Aminotransferase 18 units/L (7-56); Albumin 3.6 g/dL (3.9-5); BUN/Creatinine Ratio 28; Blood Urea Nitrogen 14 mg/dL (7-17); Calcium 9.5 mg/dL (8.4-10.2); Hemolysis Index 5
--- NOTE | 2018-02-12 10:01 | Progress Note ---
Subjective - Reason for Consult Consult date: 02/12/18 Reason for consult: Psychiatry Follow-up - Chief Complaint Chief complaint: "Tomi" Patient is a 57-year-old female that presents to the emergency department from [place] for a general medical evaluation. Today the patient is calm during the assessment. Her speech is choppy. She was able to state her name when asked. No agitation noted. No indications of side effects of her medications. No gestures of SI/HI's. Mental Status Exam - Vital signs Last Vital Signs Temp 98.3 F 02/12/18 06:20 Pulse 65 02/12/18 06:20 Resp 20 02/12/18 06:20 BP 105/61 02/12/18 06:20 Pulse Ox 98 02/12/18 06:20 - Exam Narrative exam: MSE: Appearance: calm Behavior: eyes are open Speech: choppy Mood: unable to assess Affect: flat Thought Process: circumstantial Thought Content: no gestures of SI/HI's Motor Activity: in restraints Cognition: alert Insight: poor Judgment: poor Assessment and Plan Impression: Unspecified Psychosis. Today the patient is calm during the assessment. Mental status slightly improving. DDx: Bipolar DO with psychosis, Schizophrenia Recommendation/Plan: Continue 1013 with placement to inpatient psy services. Continue Haldol 10 mg PO BID, Ativan 0.5 mg PO BID for anxiety, and Haldol 2 mg IM Q6hrs PRN for acute agitation.
[2018-02-12] MEDS: LANTUS SUB-Q SCH (21:39)
--- NOTE | 2018-02-13 07:18 | Progress Note ---
Assessment and Plan Assessment and plan: Psychosis secondary to Bipolar/Schizophrenia. Psychiatry following. continue to optimize meds per MH, awaiting placement, cont 1013 Sinus Tachycardia. Probably sec to physiologic response to agitation. HR controlled on Lopressor. Cardiology signed off. Questionable fall. Pelvic and chest x-ray negative. Cervical spine and head CT negative. Rhabdomyolysis, resolved. Hypokalemia and hypomagnesemia, resolved s/p repletion. DM2, query new onset -Blood glucose fairly controlled -Lantus dose increased and cont SSI, adjust as needed Acute metabolic acidosis, resolved Disposition: Patient is medically stable for discharge to inpatient psych facility. History Interval history: Jodi has been eating her meals she has not been conversant with staff or myself Hospitalist Physical - Physical exam Narrative exam: General.: Appears well, no distress, nontoxic HEENT: Moist mucous membranes, extraocular muscles intact, no lymphadenopathy Neck: supple Cardiac: S1-S2 heard Lungs: clear to auscultation bilaterally Abdomen: soft , nontender, nondistended, bowel sounds positive Extremities: no edema clubbing or cyanosis Skin: no rash or lesions Neurologic: no gross focal deficits Psych: disorganized behavior, opens eyes moves all extremities but does not cooperate with exam - Constitutional Vitals: Temp Pulse Resp BP Pulse Ox 97.7 F 84 20 117/76 96 02/12/18 20:04 02/12/18 20:04 02/12/18 20:04 02/12/18 20:04 02/12/18 20:04 General appearance: Present: no acute distress, other (pt was moaning) Results - Labs CBC & Chem 7: 02/12/18 08:57 02/12/18 08:57 Labs: Laboratory Last Values WBC 4.4 K/mm3 (4.5-11.0) L 02/12/18 08:57 RBC 4.27 M/mm3 (3.65-5.03) 02/12/18 08:57 Hgb 13.2 gm/dl (10.1-14.3) 02/12/18 08:57 Hct 39.2 % (30.3-42.9) 02/12/18 08:57 MCV 92 fl (79-97) 02/12/18 08:57 MCH 31 pg (28-32) 02/12/18 08:57 MCHC 34 % (30-34) 02/12/18 08:57 RDW 13.4 % (13.2-15.2) 02/12/18 08:57 Plt Count 240 K/mm3 (140-440) 02/12/18 08:57 Lymph % (Auto) 39.1 % (13.4-35.0) H 02/12/18 08:57 [place] % (Auto) 7.7 % (0.0-7.3) H 02/12/18 08:57 Eos % (Auto) 0.6 % (0.0-4.3) 02/12/18 08:57 Baso % (Auto) 0.3 % (0.0-1.8) 02/12/18 08:57 Lymph # 1.7 K/mm3 (1.2-5.4) 02/12/18 08:57 [place] # 0.3 K/mm3 (0.0-0.8) 02/12/18 08:57 Eos # 0.0 K/mm3 (0.0-0.4) 02/12/18 08:57 Baso # 0.0 K/mm3 (0.0-0.1) 02/12/18 08:57 Seg Neutrophils % 52.3 % (40.0-70.0) 02/12/18 08:57 Seg Neutrophils # 2.3 K/mm3 (1.8-7.7) 02/12/18 08:57 Sodium 138 mmol/L (137-145) 02/12/18 08:57 Potassium 3.9 mmol/L (3.6-5.0) 02/12/18 08:57 Chloride 103.1 mmol/L (98-107) 02/12/18 08:57 Carbon Dioxide 24 mmol/L (22-30) 02/12/18 08:57 Anion Gap 15 mmol/L 02/12/18 08:57 BUN 14 mg/dL (7-17) 02/12/18 08:57 Creatinine 0.5 mg/dL (0.7-1.2) L 02/12/18 08:57 Estimated GFR > 60 ml/min 02/12/18 08:57 BUN/Creatinine Ratio 28 % 02/12/18 08:57 Glucose 150 mg/dL (65-100) H 02/12/18 08:57 POC Glucose 140 (70-105) H 02/12/18 21:09 Hemoglobin A1c 12.5 % (4-6) H 02/02/18 05:52 Calcium 9.5 mg/dL (8.4-10.2) 02/12/18 08:57 Magnesium 1.70 mg/dL (1.7-2.3) 01/31/18 09:38 Total Bilirubin 0.40 mg/dL (0.1-1.2) 02/12/18 08:57 AST 13 units/L (5-40) 02/12/18 08:57 ALT 18 units/L (7-56) 02/12/18 08:57 Alkaline Phosphatase 73 units/L (35-129) 02/12/18 08:57 Total Creatine Kinase 492 units/L (30-135) H 01/26/18 16:27 Troponin T < 0.010 ng/mL (0.00-0.029) 01/23/18 20:59 Total Protein 6.1 g/dL (6.3-8.2) L 02/12/18 08:57 Albumin 3.6 g/dL (3.9-5) L 02/12/18 08:57 Albumin/Globulin Ratio 1.4 % 02/12/18 08:57 TSH 3.280 mlU/mL (0.270-4.200) 01/29/18 16:26 Urine Color Yellow (Yellow) 02/09/18 10:00 Urine Turbidity Slightly-cloudy (Clear) 02/09/18 10:00 Urine pH 5.0 (5.0-7.0) 02/09/18 10:00 Ur Specific [place] 1.021 (1.003-1.030) 02/09/18 10:00 Urine Protein 30 mg/dl mg/dL (Negative) 02/09/18 10:00 Urine Glucose (UA) >=500 mg/dL (Negative) 02/09/18 10:00 Urine Ketones Neg mg/dL (Negative) 02/09/18 10:00 Urine Blood Lg (Negative) 02/09/18 10:00 Urine Nitrite Neg (Negative) 02/09/18 10:00 Urine Bilirubin Neg (Negative) 02/09/18 10:00 Urine Urobilinogen < 2.0 mg/dL (<2.0) 02/09/18 10:00 Ur Leukocyte Esterase Neg (Negative) 02/09/18 10:00 Urine WBC (Auto) < 1.0 /HPF (0.0-6.0) 02/09/18 10:00 Urine RBC (Auto) > 182.0 /HPF (0.0-6.0) 02/09/18 10:00 U Epithel Cells (Auto) < 1.0 /HPF (0-13.0) 02/09/18 10:00 Urine Mucus 2+ /HPF 02/09/18 10:00 Urine Opiates Screen Presumptive negative 02/09/18 10:00 Urine Methadone Screen Presumptive negative 02/09/18 10:00 Ur Barbiturates Screen Presumptive negative 02/09/18 10:00 Ur Phencyclidine Scrn Presumptive negative 02/09/18 10:00 Ur Amphetamines Screen Presumptive negative 02/09/18 10:00 U Benzodiazepines Scrn Presumptive negative 02/09/18 10:00 Urine Cocaine Screen Presumptive negative 02/09/18 10:00 U Marijuana (THC) Screen Presumptive negative 02/09/18 10:00 Drugs of Abuse Note Disclamer 02/09/18 10:00
[2018-02-13] MEDS: LOTRIMIN TP SCH ×3 (07:38→22:13)
[2018-02-13] MEDS: SODIUM CHLORIDE FLUSH SYRINGE 10 ML IV SCH ×3 (07:39→21:54)
[2018-02-13] MEDS: HumaLOG SUB-Q SCH ×4 (09:23→22:50)
[2018-02-13] MEDS: HALDOL PO SCH ×2 (09:24→21:53)
[2018-02-13] MEDS: ATIVAN PO SCH ×2 (09:24→22:16)
[2018-02-13] MEDS: LOPRESSOR PO SCH ×3 (09:24→21:52)
[2018-02-13] MEDS: K-DUR PO SCH (09:24)
[2018-02-13] MEDS: LOVENOX SUB-Q SCH (09:25)
--- NOTE | 2018-02-13 10:41 | Progress Note ---
Subjective - Reason for Consult Consult date: 02/13/18 Reason for consult: Psychiatry Follow-up - Chief Complaint Chief complaint: "Hi" Patient is a 57-year-old female that presents to the emergency department from [place] for a general medical evaluation. Today the patient is calm during the assessment. She was able to state her name and deny SI/HI's when asked. Psychomotor retardation is observed with the patient. No agitation noted. No indications of side effects of her medications. Mental Status Exam - Vital signs Last Vital Signs Temp 97.7 F 02/13/18 05:51 Pulse 79 02/13/18 05:51 Resp 20 02/13/18 05:51 BP 93/59 02/13/18 05:51 Pulse Ox 97 02/13/18 05:51 - Exam Narrative exam: MSE: Appearance: calm Behavior: eyes are open Speech: choppy Mood: "okay" Affect: flat Thought Process: circumstantial Thought Content: denies SI/HI's and VH's, would not confirm or deny AH's Motor Activity: psychomotor retardation Cognition: A/O x3 Insight: variable Judgment: variable Assessment and Plan Impression: Unspecified Psychosis. Today the patient is calm during the assessment. Mental status slightly improving. DDx: Bipolar DO with psychosis, Schizophrenia Recommendation/Plan: Continue 1013 with placement to inpatient psy services. Continue Haldol 10 mg PO BID, Ativan 0.5 mg PO BID for anxiety, and Haldol 2 mg IM Q6hrs PRN for acute agitation.
--- NOTE | 2018-02-13 15:40 | Progress Note ---
Assessment and Plan Assessment and plan: Psychosis secondary to Bipolar/Schizophrenia. Psychiatry following. continue to optimize meds per MH, awaiting placement, cont 1013 Sinus Tachycardia. Probably sec to physiologic response to agitation. HR controlled on Lopressor. Cardiology signed off. Questionable fall. Pelvic and chest x-ray negative. Cervical spine and head CT negative. Rhabdomyolysis, resolved. Hypokalemia and hypomagnesemia, resolved s/p repletion. DM2, query new onset -Blood glucose fairly controlled -Lantus dose increased and cont SSI, adjust as needed Acute metabolic acidosis, resolved Disposition: Patient is medically stable for discharge to inpatient psych facility. History Interval history: Patient was seen and examined. Follow-up on current diagnosis of psychosis, still present. Overnight uneventful. Imaging, nursing note, chart, labs and old chart reviewed. Discussed with nursing at bedside. Hospitalist Physical - Physical exam Narrative exam: GEN: WDWN, NAD, Awake, Alert, nonverbal, throwing things like hot coffee HEENT: NCAT, EOMI, PERRL, OP Clear NECK: supple, no adenopathy, no thyromegaly, no JVD CVS/HEART: RRR, normal S1S2, pulses present bilaterally CHEST/LUNGS: CTA B, Symmetrical chest expansion, good air entry bilaterally GI/Abdomen: soft, NTND, good bowel sounds, no guarding or rebound /Bladder: no suprapubic tenderness, no CVA or paraspinal tenderness EXT/Skin: no c/c/e, no obvious rash MSK: FROM x 4 Neuro: CN 2-12 grossly intact, no new focal deficits Psych: agitated - Constitutional Vitals: Temp Pulse Resp BP Pulse Ox 97.5 F L 120 H 18 121/87 96 02/13/18 13:08 02/13/18 13:08 02/13/18 13:08 02/13/18 13:08 02/13/18 13:08 General appearance: Present: no acute distress, other (pt was moaning) Results - Labs CBC & Chem 7: 02/12/18 08:57 02/12/18 08:57 Labs: Laboratory Last Values WBC 4.4 K/mm3 (4.5-11.0) L 02/12/18 08:57 RBC 4.27 M/mm3 (3.65-5.03) 02/12/18 08:57 Hgb 13.2 gm/dl (10.1-14.3) 02/12/18 08:57 Hct 39.2 % (30.3-42.9) 02/12/18 08:57 MCV 92 fl (79-97) 02/12/18 08:57 MCH 31 pg (28-32) 02/12/18 08:57 MCHC 34 % (30-34) 02/12/18 08:57 RDW 13.4 % (13.2-15.2) 02/12/18 08:57 Plt Count 240 K/mm3 (140-440) 02/12/18 08:57 Lymph % (Auto) 39.1 % (13.4-35.0) H 02/12/18 08:57 [place] % (Auto) 7.7 % (0.0-7.3) H 02/12/18 08:57 Eos % (Auto) 0.6 % (0.0-4.3) 02/12/18 08:57 Baso % (Auto) 0.3 % (0.0-1.8) 02/12/18 08:57 Lymph # 1.7 K/mm3 (1.2-5.4) 02/12/18 08:57 [place] # 0.3 K/mm3 (0.0-0.8) 02/12/18 08:57 Eos # 0.0 K/mm3 (0.0-0.4) 02/12/18 08:57 Baso # 0.0 K/mm3 (0.0-0.1) 02/12/18 08:57 Seg Neutrophils % 52.3 % (40.0-70.0) 02/12/18 08:57 Seg Neutrophils # 2.3 K/mm3 (1.8-7.7) 02/12/18 08:57 Sodium 138 mmol/L (137-145) 02/12/18 08:57 Potassium 3.9 mmol/L (3.6-5.0) 02/12/18 08:57 Chloride 103.1 mmol/L (98-107) 02/12/18 08:57 Carbon Dioxide 24 mmol/L (22-30) 02/12/18 08:57 Anion Gap 15 mmol/L 02/12/18 08:57 BUN 14 mg/dL (7-17) 02/12/18 08:57 Creatinine 0.5 mg/dL (0.7-1.2) L 02/12/18 08:57 Estimated GFR > 60 ml/min 02/12/18 08:57 BUN/Creatinine Ratio 28 % 02/12/18 08:57 Glucose 150 mg/dL (65-100) H 02/12/18 08:57 POC Glucose 246 (70-105) H 02/13/18 11:15 Hemoglobin A1c 12.5 % (4-6) H 02/02/18 05:52 Calcium 9.5 mg/dL (8.4-10.2) 02/12/18 08:57 Magnesium 1.70 mg/dL (1.7-2.3) 01/31/18 09:38 Total Bilirubin 0.40 mg/dL (0.1-1.2) 02/12/18 08:57 AST 13 units/L (5-40) 02/12/18 08:57 ALT 18 units/L (7-56) 02/12/18 08:57 Alkaline Phosphatase 73 units/L (35-129) 02/12/18 08:57 Total Creatine Kinase 492 units/L (30-135) H 01/26/18 16:27 Troponin T < 0.010 ng/mL (0.00-0.029) 01/23/18 20:59 Total Protein 6.1 g/dL (6.3-8.2) L 02/12/18 08:57 Albumin 3.6 g/dL (3.9-5) L 02/12/18 08:57 Albumin/Globulin Ratio 1.4 % 02/12/18 08:57 TSH 3.280 mlU/mL (0.270-4.200) 01/29/18 16:26 Urine Color Yellow (Yellow) 02/09/18 10:00 Urine Turbidity Slightly-cloudy (Clear) 02/09/18 10:00 Urine pH 5.0 (5.0-7.0) 02/09/18 10:00 Ur Specific [place] 1.021 (1.003-1.030) 02/09/18 10:00 Urine Protein 30 mg/dl mg/dL (Negative) 02/09/18 10:00 Urine Glucose (UA) >=500 mg/dL (Negative) 02/09/18 10:00 Urine Ketones Neg mg/dL (Negative) 02/09/18 10:00 Urine Blood Lg (Negative) 02/09/18 10:00 Urine Nitrite Neg (Negative) 02/09/18 10:00 Urine Bilirubin Neg (Negative) 02/09/18 10:00 Urine Urobilinogen < 2.0 mg/dL (<2.0) 02/09/18 10:00 Ur Leukocyte Esterase Neg (Negative) 02/09/18 10:00 Urine WBC (Auto) < 1.0 /HPF (0.0-6.0) 02/09/18 10:00 Urine RBC (Auto) > 182.0 /HPF (0.0-6.0) 02/09/18 10:00 U Epithel Cells (Auto) < 1.0 /HPF (0-13.0) 02/09/18 10:00 Urine Mucus 2+ /HPF 02/09/18 10:00 Urine Opiates Screen Presumptive negative 02/09/18 10:00 Urine Methadone Screen Presumptive negative 02/09/18 10:00 Ur Barbiturates Screen Presumptive negative 02/09/18 10:00 Ur Phencyclidine Scrn Presumptive negative 02/09/18 10:00 Ur Amphetamines Screen Presumptive negative 02/09/18 10:00 U Benzodiazepines Scrn Presumptive negative 02/09/18 10:00 Urine Cocaine Screen Presumptive negative 02/09/18 10:00 U Marijuana (THC) Screen Presumptive negative 02/09/18 10:00 Drugs of Abuse Note Disclamer 02/09/18 10:00
[2018-02-13] MEDS: LANTUS SUB-Q SCH (21:58)
[2018-02-14] MEDS: HumaLOG SUB-Q SCH ×4 (09:26→23:30)
[2018-02-14] MEDS: LOVENOX SUB-Q SCH (09:26)
[2018-02-14] MEDS: K-DUR PO SCH (09:27)
[2018-02-14] MEDS: ATIVAN PO SCH ×2 (09:27→23:00)
[2018-02-14] MEDS: LOPRESSOR PO SCH ×2 (09:28→23:21)
[2018-02-14] MEDS: HALDOL PO SCH ×2 (09:28→23:20)
[2018-02-14] MEDS: SODIUM CHLORIDE FLUSH SYRINGE 10 ML IV SCH ×2 (09:30→23:00)
[2018-02-14] MEDS: LOTRIMIN TP SCH (12:12)
--- NOTE | 2018-02-14 13:17 | Progress Note ---
Subjective - Reason for Consult Consult date: 02/14/18 Reason for consult: Psychiatric Follow-up Evaluation - Chief Complaint Chief complaint: "I feel fine" Patient is a 57-year-old female that presents to the emergency department from [place] for a general medical evaluation. Today the patient is calm during the assessment. Patient is able to state her name. Per staff patient's behavior/mood has improved. Patient seen ambulating and completing ADL 's. Currently, patient is in 4 point restraints, however today she has been without restraints for several hours. Per sitter patient is redirectable. She continues to have periods of agitation. Patient seen throwing objects at staff. Thought content is impoverished. She denies SI/HI's and A/VH's. No indications of side effects of her medications. Mental Status Exam - Vital signs Last Vital Signs Temp 97.8 F 02/14/18 09:30 Pulse 88 02/14/18 09:30 Resp 20 02/14/18 09:30 BP 108/70 02/14/18 09:30 Pulse Ox 94 02/14/18 09:30 - Exam Narrative exam: Mental Status Exam: General Appearance: Causally Dressed-hospital gown, 4 point restraints Eye Contact: Intermittent Orientation: Alert and oriented x 1 ( person) Attitude/Behavior: Cooperative Sensorium: Distracted Psychomotor & Musculoskeletal Activity: Laying in bed Mood: " Fine" Affect: Constricted Speech/Language: Loud, more coherent Thought Content: Impoverished Perception: Unable to Assess Concentration/Attention: Impaired Suicidal Ideations/Plan: No suicidal gestures Homicidal Ideations/Plan: No homicidal gestures Judgment: Poor- improving Insight: Poor Assessment and Plan Impression: Unspecified Psychosis. Today the patient is calm during the assessment. Patient presents more verbal with occasional coherent speech during the assessment. No suicidal/ homicidal gestures. Per staff patient symptoms are improving. DDx: Bipolar DO with psychosis, Schizophrenia; Developmental disability Recommendation/Plan: 1. Will continue patient's 1013. Placement is still ongoing for inpatient psychiatric services. 2. Increase Haldol 10 mg PO QAM and 15mg QHS, Ativan 0.5 mg PO BID for anxiety , and Haldol 2 mg IM Q6hrs PRN for acute agitation. 3. Will continue to monitor psychosis, mood, sleep, appetite, compliance, and side effects.
--- NOTE | 2018-02-14 17:28 | Progress Note ---
Assessment and Plan Assessment and plan: Psychosis secondary to Bipolar/Schizophrenia. Psychiatry following. continue to optimize meds per MH, awaiting placement, cont 1013 Sinus Tachycardia. Probably sec to physiologic response to agitation. HR controlled on Lopressor. Cardiology signed off. Questionable fall. Pelvic and chest x-ray negative. Cervical spine and head CT negative. Rhabdomyolysis, resolved. Hypokalemia and hypomagnesemia, resolved s/p repletion. DM2, query new onset -Blood glucose fairly controlled -Lantus dose increased and cont SSI, adjust as needed Acute metabolic acidosis, resolved Disposition: Patient is medically stable for discharge to inpatient psych facility. History Interval history: Patient was seen and examined. Follow-up on current diagnosis of psychosis, still present. Overnight uneventful. Imaging, nursing note, chart, labs and old chart reviewed. Discussed with nursing at bedside. Hospitalist Physical - Physical exam Narrative exam: GEN: WDWN, NAD, Awake, Alert, nonverbal, throwing things like hot coffee HEENT: NCAT, EOMI, PERRL, OP Clear NECK: supple, no adenopathy, no thyromegaly, no JVD CVS/HEART: RRR, normal S1S2, pulses present bilaterally CHEST/LUNGS: CTA B, Symmetrical chest expansion, good air entry bilaterally GI/Abdomen: soft, NTND, good bowel sounds, no guarding or rebound /Bladder: no suprapubic tenderness, no CVA or paraspinal tenderness EXT/Skin: no c/c/e, no obvious rash MSK: FROM x 4 Neuro: CN 2-12 grossly intact, no new focal deficits Psych: agitated - Constitutional Vitals: Temp Pulse Resp BP Pulse Ox 97.8 F 79 20 119/71 94 02/14/18 15:56 02/14/18 15:56 02/14/18 15:56 02/14/18 15:56 02/14/18 15:56 General appearance: Present: no acute distress, other (pt was moaning) Results - Labs CBC & Chem 7: 02/12/18 08:57 02/12/18 08:57 Labs: Laboratory Last Values WBC 4.4 K/mm3 (4.5-11.0) L 02/12/18 08:57 RBC 4.27 M/mm3 (3.65-5.03) 02/12/18 08:57 Hgb 13.2 gm/dl (10.1-14.3) 02/12/18 08:57 Hct 39.2 % (30.3-42.9) 02/12/18 08:57 MCV 92 fl (79-97) 02/12/18 08:57 MCH 31 pg (28-32) 02/12/18 08:57 MCHC 34 % (30-34) 02/12/18 08:57 RDW 13.4 % (13.2-15.2) 02/12/18 08:57 Plt Count 240 K/mm3 (140-440) 02/12/18 08:57 Lymph % (Auto) 39.1 % (13.4-35.0) H 02/12/18 08:57 [place] % (Auto) 7.7 % (0.0-7.3) H 02/12/18 08:57 Eos % (Auto) 0.6 % (0.0-4.3) 02/12/18 08:57 Baso % (Auto) 0.3 % (0.0-1.8) 02/12/18 08:57 Lymph # 1.7 K/mm3 (1.2-5.4) 02/12/18 08:57 [place] # 0.3 K/mm3 (0.0-0.8) 02/12/18 08:57 Eos # 0.0 K/mm3 (0.0-0.4) 02/12/18 08:57 Baso # 0.0 K/mm3 (0.0-0.1) 02/12/18 08:57 Seg Neutrophils % 52.3 % (40.0-70.0) 02/12/18 08:57 Seg Neutrophils # 2.3 K/mm3 (1.8-7.7) 02/12/18 08:57 Sodium 138 mmol/L (137-145) 02/12/18 08:57 Potassium 3.9 mmol/L (3.6-5.0) 02/12/18 08:57 Chloride 103.1 mmol/L (98-107) 02/12/18 08:57 Carbon Dioxide 24 mmol/L (22-30) 02/12/18 08:57 Anion Gap 15 mmol/L 02/12/18 08:57 BUN 14 mg/dL (7-17) 02/12/18 08:57 Creatinine 0.5 mg/dL (0.7-1.2) L 02/12/18 08:57 Estimated GFR > 60 ml/min 02/12/18 08:57 BUN/Creatinine Ratio 28 % 02/12/18 08:57 Glucose 150 mg/dL (65-100) H 02/12/18 08:57 POC Glucose 116 (70-105) H 02/14/18 08:05 Hemoglobin A1c 12.5 % (4-6) H 02/02/18 05:52 Calcium 9.5 mg/dL (8.4-10.2) 02/12/18 08:57 Magnesium 1.70 mg/dL (1.7-2.3) 01/31/18 09:38 Total Bilirubin 0.40 mg/dL (0.1-1.2) 02/12/18 08:57 AST 13 units/L (5-40) 02/12/18 08:57 ALT 18 units/L (7-56) 02/12/18 08:57 Alkaline Phosphatase 73 units/L (35-129) 02/12/18 08:57 Total Creatine Kinase 492 units/L (30-135) H 01/26/18 16:27 Troponin T < 0.010 ng/mL (0.00-0.029) 01/23/18 20:59 Total Protein 6.1 g/dL (6.3-8.2) L 02/12/18 08:57 Albumin 3.6 g/dL (3.9-5) L 02/12/18 08:57 Albumin/Globulin Ratio 1.4 % 02/12/18 08:57 TSH 3.280 mlU/mL (0.270-4.200) 01/29/18 16:26 Urine Color Yellow (Yellow) 02/09/18 10:00 Urine Turbidity Slightly-cloudy (Clear) 02/09/18 10:00 Urine pH 5.0 (5.0-7.0) 02/09/18 10:00 Ur Specific [place] 1.021 (1.003-1.030) 02/09/18 10:00 Urine Protein 30 mg/dl mg/dL (Negative) 02/09/18 10:00 Urine Glucose (UA) >=500 mg/dL (Negative) 02/09/18 10:00 Urine Ketones Neg mg/dL (Negative) 02/09/18 10:00 Urine Blood Lg (Negative) 02/09/18 10:00 Urine Nitrite Neg (Negative) 02/09/18 10:00 Urine Bilirubin Neg (Negative) 02/09/18 10:00 Urine Urobilinogen < 2.0 mg/dL (<2.0) 02/09/18 10:00 Ur Leukocyte Esterase Neg (Negative) 02/09/18 10:00 Urine WBC (Auto) < 1.0 /HPF (0.0-6.0) 02/09/18 10:00 Urine RBC (Auto) > 182.0 /HPF (0.0-6.0) 02/09/18 10:00 U Epithel Cells (Auto) < 1.0 /HPF (0-13.0) 02/09/18 10:00 Urine Mucus 2+ /HPF 02/09/18 10:00 Urine Opiates Screen Presumptive negative 02/09/18 10:00 Urine Methadone Screen Presumptive negative 02/09/18 10:00 Ur Barbiturates Screen Presumptive negative 02/09/18 10:00 Ur Phencyclidine Scrn Presumptive negative 02/09/18 10:00 Ur Amphetamines Screen Presumptive negative 02/09/18 10:00 U Benzodiazepines Scrn Presumptive negative 02/09/18 10:00 Urine Cocaine Screen Presumptive negative 02/09/18 10:00 U Marijuana (THC) Screen Presumptive negative 02/09/18 10:00 Drugs of Abuse Note Disclamer 02/09/18 10:00
[2018-02-14] MEDS: LANTUS SUB-Q SCH (23:22)
[2018-02-15] MEDS: LOTRIMIN TP SCH ×3 (00:20→22:39)
[2018-02-15] MEDS: HALDOL IM PRN (04:25)
[2018-02-15] MEDS: LOVENOX SUB-Q SCH (09:22)
[2018-02-15] MEDS: HALDOL PO SCH ×2 (09:22→22:35)
[2018-02-15] MEDS: ATIVAN PO SCH ×2 (09:22→22:35)
[2018-02-15] MEDS: K-DUR PO SCH (09:22)
[2018-02-15] MEDS: HumaLOG SUB-Q SCH ×4 (09:23→22:24)
[2018-02-15] MEDS: LOPRESSOR PO SCH ×2 (09:30→22:28)
[2018-02-15] MEDS: SODIUM CHLORIDE FLUSH SYRINGE 10 ML IV SCH ×2 (09:31→22:41)
--- NOTE | 2018-02-15 10:36 | Progress Note ---
Subjective - Reason for Consult Consult date: 02/15/18 Reason for consult: Psychiatry Follow up - Chief Complaint Chief complaint: "Tomi" Patient is a 57-year-old female that presents to the emergency department from [place] for a general medical evaluation. Today the patient is calm during the assessment. She was observed feeding herself without assistance. The patient is in a waist restraint. She continue to have periods of agitation per the satff. She denies SI/HI's and AVH's. No indication of side effects of her medications. Mental Status Exam - Vital signs Last Vital Signs Temp 98.6 F 02/15/18 09:29 Pulse 102 H 02/15/18 09:30 Resp 18 02/15/18 09:29 BP 113/73 02/15/18 09:30 Pulse Ox 95 02/15/18 09:29 - Exam Narrative exam: MSE: Appearance: calm Behavior: regular eye contact Speech: choppy Mood: "okay" Affect: flat Thought Process: circumstantial Thought Content: denies SI/HI's and AVH's Motor Activity: feeding self Cognition: A/O x3 Insight: variable Judgment: variable Assessment and Plan Impression: Unspecified Psychosis. Today the patient is calm during the assessment. The patient's mental status is improving. DDx: Bipolar DO with psychosis, Schizophrenia Recommendation/Plan: Reevaluate the patient's 1013 in 24 hours to determine proper dispo. Continue Haldol 10 mg PO QAM, and haldol 15 mg PO HS, Ativan 0.5 mg PO BID for anxiety, and Haldol 2 mg IM Q6hrs PRN for acute agitation.
--- NOTE | 2018-02-15 14:47 | Progress Note ---
Assessment and Plan Assessment and plan: Psychosis secondary to Bipolar/Schizophrenia. Psychiatry following. continue to optimize meds per MH, awaiting placement, cont 1013 Sinus Tachycardia. Probably sec to physiologic response to agitation. HR controlled on Lopressor. Cardiology signed off. Questionable fall. Pelvic and chest x-ray negative. Cervical spine and head CT negative. Rhabdomyolysis, resolved. Hypokalemia and hypomagnesemia, resolved s/p repletion. DM2, query new onset -Blood glucose fairly controlled -Lantus dose increased and cont SSI, adjust as needed Acute metabolic acidosis, resolved Disposition: Patient is medically stable for discharge to inpatient psych facility. History Interval history: Patient was seen and examined. Follow-up on current diagnosis of psychosis, still present. Overnight uneventful. Imaging, nursing note, chart, labs and old chart reviewed. Discussed with nursing at bedside. Hospitalist Physical - Physical exam Narrative exam: GEN: WDWN, NAD, Awake, Alert, confused HEENT: NCAT, EOMI, PERRL, OP Clear NECK: supple, no adenopathy, no thyromegaly, no JVD CVS/HEART: RRR, normal S1S2, pulses present bilaterally CHEST/LUNGS: CTA B, Symmetrical chest expansion, good air entry bilaterally GI/Abdomen: soft, NTND, good bowel sounds, no guarding or rebound /Bladder: no suprapubic tenderness, no CVA or paraspinal tenderness EXT/Skin: no c/c/e, no obvious rash MSK: FROM x 4 Neuro: CN 2-12 grossly intact, no new focal deficits Psych: anxious, doesn't follow commands most of time, difficult to re-direct - Constitutional Vitals: Temp Pulse Resp BP Pulse Ox 97.7 F 92 H 18 92/51 94 02/15/18 14:39 02/15/18 14:39 02/15/18 14:39 02/15/18 14:39 02/15/18 14:39 General appearance: Present: no acute distress, other (pt was moaning) Results - Labs CBC & Chem 7: 02/12/18 08:57 02/12/18 08:57 Labs: Laboratory Last Values WBC 4.4 K/mm3 (4.5-11.0) L 02/12/18 08:57 RBC 4.27 M/mm3 (3.65-5.03) 02/12/18 08:57 Hgb 13.2 gm/dl (10.1-14.3) 02/12/18 08:57 Hct 39.2 % (30.3-42.9) 02/12/18 08:57 MCV 92 fl (79-97) 02/12/18 08:57 MCH 31 pg (28-32) 02/12/18 08:57 MCHC 34 % (30-34) 02/12/18 08:57 RDW 13.4 % (13.2-15.2) 02/12/18 08:57 Plt Count 240 K/mm3 (140-440) 02/12/18 08:57 Lymph % (Auto) 39.1 % (13.4-35.0) H 02/12/18 08:57 [place] % (Auto) 7.7 % (0.0-7.3) H 02/12/18 08:57 Eos % (Auto) 0.6 % (0.0-4.3) 02/12/18 08:57 Baso % (Auto) 0.3 % (0.0-1.8) 02/12/18 08:57 Lymph # 1.7 K/mm3 (1.2-5.4) 02/12/18 08:57 [place] # 0.3 K/mm3 (0.0-0.8) 02/12/18 08:57 Eos # 0.0 K/mm3 (0.0-0.4) 02/12/18 08:57 Baso # 0.0 K/mm3 (0.0-0.1) 02/12/18 08:57 Seg Neutrophils % 52.3 % (40.0-70.0) 02/12/18 08:57 Seg Neutrophils # 2.3 K/mm3 (1.8-7.7) 02/12/18 08:57 Sodium 138 mmol/L (137-145) 02/12/18 08:57 Potassium 3.9 mmol/L (3.6-5.0) 02/12/18 08:57 Chloride 103.1 mmol/L (98-107) 02/12/18 08:57 Carbon Dioxide 24 mmol/L (22-30) 02/12/18 08:57 Anion Gap 15 mmol/L 02/12/18 08:57 BUN 14 mg/dL (7-17) 02/12/18 08:57 Creatinine 0.5 mg/dL (0.7-1.2) L 02/12/18 08:57 Estimated GFR > 60 ml/min 02/12/18 08:57 BUN/Creatinine Ratio 28 % 02/12/18 08:57 Glucose 150 mg/dL (65-100) H 02/12/18 08:57 POC Glucose 208 (70-105) H 02/15/18 12:55 Hemoglobin A1c 12.5 % (4-6) H 02/02/18 05:52 Calcium 9.5 mg/dL (8.4-10.2) 02/12/18 08:57 Magnesium 1.70 mg/dL (1.7-2.3) 01/31/18 09:38 Total Bilirubin 0.40 mg/dL (0.1-1.2) 02/12/18 08:57 AST 13 units/L (5-40) 02/12/18 08:57 ALT 18 units/L (7-56) 02/12/18 08:57 Alkaline Phosphatase 73 units/L (35-129) 02/12/18 08:57 Total Creatine Kinase 492 units/L (30-135) H 01/26/18 16:27 Troponin T < 0.010 ng/mL (0.00-0.029) 01/23/18 20:59 Total Protein 6.1 g/dL (6.3-8.2) L 02/12/18 08:57 Albumin 3.6 g/dL (3.9-5) L 02/12/18 08:57 Albumin/Globulin Ratio 1.4 % 02/12/18 08:57 TSH 3.280 mlU/mL (0.270-4.200) 01/29/18 16:26 Urine Color Yellow (Yellow) 02/09/18 10:00 Urine Turbidity Slightly-cloudy (Clear) 02/09/18 10:00 Urine pH 5.0 (5.0-7.0) 02/09/18 10:00 Ur Specific [place] 1.021 (1.003-1.030) 02/09/18 10:00 Urine Protein 30 mg/dl mg/dL (Negative) 02/09/18 10:00 Urine Glucose (UA) >=500 mg/dL (Negative) 02/09/18 10:00 Urine Ketones Neg mg/dL (Negative) 02/09/18 10:00 Urine Blood Lg (Negative) 02/09/18 10:00 Urine Nitrite Neg (Negative) 02/09/18 10:00 Urine Bilirubin Neg (Negative) 02/09/18 10:00 Urine Urobilinogen < 2.0 mg/dL (<2.0) 02/09/18 10:00 Ur Leukocyte Esterase Neg (Negative) 02/09/18 10:00 Urine WBC (Auto) < 1.0 /HPF (0.0-6.0) 02/09/18 10:00 Urine RBC (Auto) > 182.0 /HPF (0.0-6.0) 02/09/18 10:00 U Epithel Cells (Auto) < 1.0 /HPF (0-13.0) 02/09/18 10:00 Urine Mucus 2+ /HPF 02/09/18 10:00 Urine Opiates Screen Presumptive negative 02/09/18 10:00 Urine Methadone Screen Presumptive negative 02/09/18 10:00 Ur Barbiturates Screen Presumptive negative 02/09/18 10:00 Ur Phencyclidine Scrn Presumptive negative 02/09/18 10:00 Ur Amphetamines Screen Presumptive negative 02/09/18 10:00 U Benzodiazepines Scrn Presumptive negative 02/09/18 10:00 Urine Cocaine Screen Presumptive negative 02/09/18 10:00 U Marijuana (THC) Screen Presumptive negative 02/09/18 10:00 Drugs of Abuse Note Disclamer 02/09/18 10:00
[2018-02-15] MEDS ORDERED: HALDOL PO SCH (22:00)
[2018-02-15] MEDS: LANTUS SUB-Q SCH (22:27)
[2018-02-16] MEDS: HumaLOG SUB-Q SCH ×4 (08:29→22:56)
[2018-02-16] MEDS: HALDOL PO SCH ×2 (09:10→22:55)
[2018-02-16] MEDS: LOVENOX SUB-Q SCH (09:11)
[2018-02-16] MEDS: K-DUR PO SCH (09:11)
[2018-02-16] MEDS: ATIVAN PO SCH ×2 (09:11→22:56)
[2018-02-16] MEDS: LOTRIMIN TP SCH ×2 (09:12→22:59)
[2018-02-16] MEDS: SODIUM CHLORIDE FLUSH SYRINGE 10 ML IV SCH ×2 (09:12→22:59)
[2018-02-16] MEDS: LOPRESSOR PO SCH ×2 (09:15→22:55)
--- NOTE | 2018-02-16 13:33 | Progress Note ---
Assessment and Plan Assessment and plan: Psychosis secondary to Bipolar/Schizophrenia. Psychiatry following. continue to optimize meds per MH, awaiting placement, cont 1013 Sinus Tachycardia. Probably sec to physiologic response to agitation. HR controlled on Lopressor. Cardiology signed off. Questionable fall. Pelvic and chest x-ray negative. Cervical spine and head CT negative. Rhabdomyolysis, resolved. Hypokalemia and hypomagnesemia, resolved s/p repletion. DM2, query new onset -Blood glucose fairly controlled -Lantus dose increased and cont SSI, adjust as needed Acute metabolic acidosis, resolved Disposition: Patient is medically stable for discharge to inpatient psych facility. History Interval history: Patient was seen and examined. Follow-up on current diagnosis of psychosis, still present. Overnight uneventful. Imaging, nursing note, chart, labs and old chart reviewed. Discussed with nursing at bedside. Hospitalist Physical - Physical exam Narrative exam: GEN: WDWN, NAD, Awake, Alert, confused HEENT: NCAT, EOMI, PERRL, OP Clear NECK: supple, no adenopathy, no thyromegaly, no JVD CVS/HEART: RRR, normal S1S2, pulses present bilaterally CHEST/LUNGS: CTA B, Symmetrical chest expansion, good air entry bilaterally GI/Abdomen: soft, NTND, good bowel sounds, no guarding or rebound /Bladder: no suprapubic tenderness, no CVA or paraspinal tenderness EXT/Skin: no c/c/e, no obvious rash MSK: FROM x 4 Neuro: CN 2-12 grossly intact, no new focal deficits Psych: anxious, doesn't follow commands most of time, difficult to re-direct - Constitutional Vitals: Temp Pulse Resp BP Pulse Ox 98.5 F 66 20 104/69 95 02/16/18 12:00 02/16/18 12:00 02/16/18 12:00 02/16/18 12:00 02/16/18 12:00 General appearance: Present: no acute distress, other (pt was moaning) Results - Labs CBC & Chem 7: 02/12/18 08:57 02/12/18 08:57 Labs: Laboratory Last Values WBC 4.4 K/mm3 (4.5-11.0) L 02/12/18 08:57 RBC 4.27 M/mm3 (3.65-5.03) 02/12/18 08:57 Hgb 13.2 gm/dl (10.1-14.3) 02/12/18 08:57 Hct 39.2 % (30.3-42.9) 02/12/18 08:57 MCV 92 fl (79-97) 02/12/18 08:57 MCH 31 pg (28-32) 02/12/18 08:57 MCHC 34 % (30-34) 02/12/18 08:57 RDW 13.4 % (13.2-15.2) 02/12/18 08:57 Plt Count 240 K/mm3 (140-440) 02/12/18 08:57 Lymph % (Auto) 39.1 % (13.4-35.0) H 02/12/18 08:57 [place] % (Auto) 7.7 % (0.0-7.3) H 02/12/18 08:57 Eos % (Auto) 0.6 % (0.0-4.3) 02/12/18 08:57 Baso % (Auto) 0.3 % (0.0-1.8) 02/12/18 08:57 Lymph # 1.7 K/mm3 (1.2-5.4) 02/12/18 08:57 [place] # 0.3 K/mm3 (0.0-0.8) 02/12/18 08:57 Eos # 0.0 K/mm3 (0.0-0.4) 02/12/18 08:57 Baso # 0.0 K/mm3 (0.0-0.1) 02/12/18 08:57 Seg Neutrophils % 52.3 % (40.0-70.0) 02/12/18 08:57 Seg Neutrophils # 2.3 K/mm3 (1.8-7.7) 02/12/18 08:57 Sodium 138 mmol/L (137-145) 02/12/18 08:57 Potassium 3.9 mmol/L (3.6-5.0) 02/12/18 08:57 Chloride 103.1 mmol/L (98-107) 02/12/18 08:57 Carbon Dioxide 24 mmol/L (22-30) 02/12/18 08:57 Anion Gap 15 mmol/L 02/12/18 08:57 BUN 14 mg/dL (7-17) 02/12/18 08:57 Creatinine 0.5 mg/dL (0.7-1.2) L 02/12/18 08:57 Estimated GFR > 60 ml/min 02/12/18 08:57 BUN/Creatinine Ratio 28 % 02/12/18 08:57 Glucose 150 mg/dL (65-100) H 02/12/18 08:57 POC Glucose 135 (70-105) H 02/16/18 11:40 Hemoglobin A1c 12.5 % (4-6) H 02/02/18 05:52 Calcium 9.5 mg/dL (8.4-10.2) 02/12/18 08:57 Magnesium 1.70 mg/dL (1.7-2.3) 01/31/18 09:38 Total Bilirubin 0.40 mg/dL (0.1-1.2) 02/12/18 08:57 AST 13 units/L (5-40) 02/12/18 08:57 ALT 18 units/L (7-56) 02/12/18 08:57 Alkaline Phosphatase 73 units/L (35-129) 02/12/18 08:57 Total Creatine Kinase 492 units/L (30-135) H 01/26/18 16:27 Troponin T < 0.010 ng/mL (0.00-0.029) 01/23/18 20:59 Total Protein 6.1 g/dL (6.3-8.2) L 02/12/18 08:57 Albumin 3.6 g/dL (3.9-5) L 02/12/18 08:57 Albumin/Globulin Ratio 1.4 % 02/12/18 08:57 TSH 3.280 mlU/mL (0.270-4.200) 01/29/18 16:26 Urine Color Yellow (Yellow) 02/09/18 10:00 Urine Turbidity Slightly-cloudy (Clear) 02/09/18 10:00 Urine pH 5.0 (5.0-7.0) 02/09/18 10:[address] 1.021 (1.003-1.030) 02/09/18 10:00 Urine Protein 30 mg/dl mg/dL (Negative) 02/09/18 10:00 Urine Glucose (UA) >=500 mg/dL (Negative) 02/09/18 10:00 Urine Ketones Neg mg/dL (Negative) 02/09/18 10:00 Urine Blood Lg (Negative) 02/09/18 10:00 Urine Nitrite Neg (Negative) 02/09/18 10:00 Urine Bilirubin Neg (Negative) 02/09/18 10:00 Urine Urobilinogen < 2.0 mg/dL (<2.0) 02/09/18 10:00 Ur Leukocyte Esterase Neg (Negative) 02/09/18 10:00 Urine WBC (Auto) < 1.0 /HPF (0.0-6.0) 02/09/18 10:00 Urine RBC (Auto) > 182.0 /HPF (0.0-6.0) 02/09/18 10:00 U Epithel Cells (Auto) < 1.0 /HPF (0-13.0) 02/09/18 10:00 Urine Mucus 2+ /HPF 02/09/18 10:00 Urine Opiates Screen Presumptive negative 02/09/18 10:00 Urine Methadone Screen Presumptive negative 02/09/18 10:00 Ur Barbiturates Screen Presumptive negative 02/09/18 10:00 Ur Phencyclidine Scrn Presumptive negative 02/09/18 10:00 Ur Amphetamines Screen Presumptive negative 02/09/18 10:00 U Benzodiazepines Scrn Presumptive negative 02/09/18 10:00 Urine Cocaine Screen Presumptive negative 02/09/18 10:00 U Marijuana (THC) Screen Presumptive negative 02/09/18 10:00 Drugs of Abuse Note Disclamer 02/09/18 10:00
--- NOTE | 2018-02-16 15:42 | Progress Note ---
Subjective - Reason for Consult Consult date: 02/16/18 Reason for consult: Psychiatry Follow-up - Chief Complaint Chief complaint: "Hi" Patient is a 57-year-old female that presents to the emergency department from [place] for a general medical evaluation. Today the patient is calm during the assessment. She stated that she wanted to go home. She was able to tell me her son's name (Zeferino Castillo). Per the sitter, the patient ate 100 % of her breakfast. The patient is in a waist restraint. She denies SI/HI's and AVH's. No indication of side effects of her medications. Mental Status Exam - Vital signs Last Vital Signs Temp 98.5 F 02/16/18 12:00 Pulse 66 02/16/18 12:00 Resp 20 02/16/18 12:00 BP 104/69 02/16/18 12:00 Pulse Ox 95 02/16/18 12:00 - Exam Narrative exam: MSE: Appearance: calm, cooperative Behavior: regular eye contact Speech: regular rate and tone Mood: "okay" Affect: congruent to mood Thought Process: circumstantial Thought Content: denies SI/HI's and AVH's Motor Activity: sitting up in bed Cognition: A/O x3 Insight: fair Judgment: fair Assessment and Plan Impression: Unspecified Psychosis. Today the patient is calm during the assessment. The patient's mental status has improved. The patient's psychosis has resolved. DDx: Bipolar DO with psychosis, Schizophrenia Recommendation/Plan: The patient's 1013 and will not be extended. Continue Haldol 10 mg PO QAM, Haldol 15 mg PO HS, and Ativan 0.5 mg PO BID for anxiety. The patient can follow up with [facility] for outpatient psy services. Called the patient's son and daughter no answer.
[2018-02-16] MEDS: LANTUS SUB-Q SCH (22:54)
[2018-02-17 08:31] LABS: Hematocrit 39.1 % (30.3-42.9); Hemoglobin 13.3 gm/dl (10.1-14.3); Mean Corpuscular HGB Conc 34 % (30-34); Mean Corpuscular Hemoglobin 31 pg (28-32); Mean Corpuscular Volume 91 fl (79-97); Platelet Count 226 K/mm3 (140-440); Red Blood Count 4.27 M/mm3 (3.65-5.03); Red Cell Distribution Width 12.9 % (13.2-15.2)
[2018-02-17 08:55] LABS: BUN/Creatinine Ratio 16; Blood Urea Nitrogen 8 mg/dL (7-17); Calcium 9.6 mg/dL (8.4-10.2); Hemolysis Index 1
[2018-02-17] MEDS: HALDOL PO SCH ×2 (10:43→21:57)
[2018-02-17] MEDS: LOVENOX SUB-Q SCH (10:44)
[2018-02-17] MEDS: K-DUR PO SCH (10:44)
[2018-02-17] MEDS: ATIVAN PO SCH ×2 (10:44→21:57)
[2018-02-17] MEDS: HumaLOG SUB-Q SCH ×4 (10:44→22:25)
[2018-02-17] MEDS: LOTRIMIN TP SCH ×2 (10:45→21:55)
[2018-02-17] MEDS: SODIUM CHLORIDE FLUSH SYRINGE 10 ML IV SCH ×2 (10:51→22:20)
[2018-02-17] MEDS: LOPRESSOR PO SCH ×2 (13:01→21:57)
--- NOTE | 2018-02-17 13:30 | Progress Note ---
Assessment and Plan Assessment and plan: Psychosis secondary to Bipolar/Schizophrenia. Psychiatry following. continue to optimize meds per MH, awaiting placement, cont 1013 Sinus Tachycardia. Probably sec to physiologic response to agitation. HR controlled on Lopressor. Cardiology signed off. Questionable fall. Pelvic and chest x-ray negative. Cervical spine and head CT negative. Rhabdomyolysis, resolved. Hypokalemia and hypomagnesemia, resolved s/p repletion. DM2, new onset -Blood glucose fairly controlled -Lantus dose increased and cont SSI, adjust as needed Acute metabolic acidosis, resolved Disposition: Patient is medically stable for discharge d/w [facility] and they has rescinded the 1013. She is in restraints because she ignores personal safety. d/w case mangagement, Anika, d/c into family care History Interval history: Patient was seen and examined. Follow-up on current diagnosis of psychosis, still present. Overnight uneventful. Imaging, nursing note, chart, labs and old chart reviewed. Discussed with nursing at bedside. Hospitalist Physical - Physical exam Narrative exam: GEN: WDWN, NAD, Awake, Alert, confused HEENT: NCAT, EOMI, PERRL, OP Clear NECK: supple, no adenopathy, no thyromegaly, no JVD CVS/HEART: RRR, normal S1S2, pulses present bilaterally CHEST/LUNGS: CTA B, Symmetrical chest expansion, good air entry bilaterally GI/Abdomen: soft, NTND, good bowel sounds, no guarding or rebound /Bladder: no suprapubic tenderness, no CVA or paraspinal tenderness EXT/Skin: no c/c/e, no obvious rash MSK: FROM x 4 Neuro: CN 2-12 grossly intact, no new focal deficits Psych: anxious, doesn't follow commands most of time, difficult to re-direct - Constitutional Vitals: Temp Pulse Resp BP Pulse Ox 98.3 F 82 18 115/76 94 02/17/18 10:46 02/17/18 10:46 02/17/18 10:46 02/17/18 10:46 02/17/18 10:46 General appearance: Present: no acute distress, other (pt was moaning) Results - Labs CBC & Chem 7: 02/17/18 07:36 02/17/18 07:36 Labs: Laboratory Last Values WBC 4.8 K/mm3 (4.5-11.0) 02/17/18 07:36 RBC 4.27 M/mm3 (3.65-5.03) 02/17/18 07:36 Hgb 13.3 gm/dl (10.1-14.3) 02/17/18 07:36 Hct 39.1 % (30.3-42.9) 02/17/18 07:36 MCV 91 fl (79-97) 02/17/18 07:36 MCH 31 pg (28-32) 02/17/18 07:36 MCHC 34 % (30-34) 02/17/18 07:36 RDW 12.9 % (13.2-15.2) L 02/17/18 07:36 Plt Count 226 K/mm3 (140-440) 02/17/18 07:36 Lymph % (Auto) 39.1 % (13.4-35.0) H 02/12/18 08:57 [place] % (Auto) 7.7 % (0.0-7.3) H 02/12/18 08:57 Eos % (Auto) 0.6 % (0.0-4.3) 02/12/18 08:57 Baso % (Auto) 0.3 % (0.0-1.8) 02/12/18 08:57 Lymph # 1.7 K/mm3 (1.2-5.4) 02/12/18 08:57 [place] # 0.3 K/mm3 (0.0-0.8) 02/12/18 08:57 Eos # 0.0 K/mm3 (0.0-0.4) 02/12/18 08:57 Baso # 0.0 K/mm3 (0.0-0.1) 02/12/18 08:57 Seg Neutrophils % 52.3 % (40.0-70.0) 02/12/18 08:57 Seg Neutrophils # 2.3 K/mm3 (1.8-7.7) 02/12/18 08:57 Sodium 140 mmol/L (137-145) 02/17/18 07:36 Potassium 3.7 mmol/L (3.6-5.0) 02/17/18 07:36 Chloride 105.1 mmol/L (98-107) 02/17/18 07:36 Carbon Dioxide 23 mmol/L (22-30) 02/17/18 07:36 Anion Gap 16 mmol/L 02/17/18 07:36 BUN 8 mg/dL (7-17) 02/17/18 07:36 Creatinine 0.5 mg/dL (0.7-1.2) L 02/17/18 07:36 Estimated GFR > 60 ml/min 02/17/18 07:36 BUN/Creatinine Ratio 16 % 02/17/18 07:36 Glucose 143 mg/dL (65-100) H 02/17/18 07:36 POC Glucose 241 (70-105) H 02/16/18 16:26 Hemoglobin A1c 12.5 % (4-6) H 02/02/18 05:52 Calcium 9.6 mg/dL (8.4-10.2) 02/17/18 07:36 Magnesium 1.70 mg/dL (1.7-2.3) 01/31/18 09:38 Total Bilirubin 0.40 mg/dL (0.1-1.2) 02/12/18 08:57 AST 13 units/L (5-40) 02/12/18 08:57 ALT 18 units/L (7-56) 02/12/18 08:57 Alkaline Phosphatase 73 units/L (35-129) 02/12/18 08:57 Total Creatine Kinase 492 units/L (30-135) H 01/26/18 16:27 Troponin T < 0.010 ng/mL (0.00-0.029) 01/23/18 20:59 Total Protein 6.1 g/dL (6.3-8.2) L 02/12/18 08:57 Albumin 3.6 g/dL (3.9-5) L 02/12/18 08:57 Albumin/Globulin Ratio 1.4 % 02/12/18 08:57 TSH 3.280 mlU/mL (0.270-4.200) 01/29/18 16:26 Urine Color Yellow (Yellow) 02/09/18 10:00 Urine Turbidity Slightly-cloudy (Clear) 02/09/18 10:00 Urine pH 5.0 (5.0-7.0) 02/09/18 10:00 Ur Specific [place] 1.021 (1.003-1.030) 02/09/18 10:00 Urine Protein 30 mg/dl mg/dL (Negative) 02/09/18 10:00 Urine Glucose (UA) >=500 mg/dL (Negative) 02/09/18 10:00 Urine Ketones Neg mg/dL (Negative) 02/09/18 10:00 Urine Blood Lg (Negative) 02/09/18 10:00 Urine Nitrite Neg (Negative) 02/09/18 10:00 Urine Bilirubin Neg (Negative) 02/09/18 10:00 Urine Urobilinogen < 2.0 mg/dL (<2.0) 02/09/18 10:00 Ur Leukocyte Esterase Neg (Negative) 02/09/18 10:00 Urine WBC (Auto) < 1.0 /HPF (0.0-6.0) 02/09/18 10:00 Urine RBC (Auto) > 182.0 /HPF (0.0-6.0) 02/09/18 10:00 U Epithel Cells (Auto) < 1.0 /HPF (0-13.0) 02/09/18 10:00 Urine Mucus 2+ /HPF 02/09/18 10:00 Urine Opiates Screen Presumptive negative 02/09/18 10:00 Urine Methadone Screen Presumptive negative 02/09/18 10:00 Ur Barbiturates Screen Presumptive negative 02/09/18 10:00 Ur Phencyclidine Scrn Presumptive negative 02/09/18 10:00 Ur Amphetamines Screen Presumptive negative 02/09/18 10:00 U Benzodiazepines Scrn Presumptive negative 02/09/18 10:00 Urine Cocaine Screen Presumptive negative 02/09/18 10:00 U Marijuana (THC) Screen Presumptive negative 02/09/18 10:00 Drugs of Abuse Note Disclamer 02/09/18 10:00
--- NOTE | 2018-02-17 13:40 | Discharge Summary ---
Providers - Providers Date of Admission: 01/23/18 22:30 Date of discharge: 02/17/18 Attending physician: CHERYL LAUREANO 01/24/18 00:11 Speech Therapy Evaluation and Treat [CONS] Stat Reason For Exam: failed swallow screen 01/25/18 10:39 Consult to Mental Health [CONS] Routine Reason For Exam: bipolar/ams Place consult to:: mental health Notified:: laisha Was contact made?: Yes If yes, spoke with:: laisha Time called:: 10:40 02/12/18 18:01 Physical Therapy Evaluation and Treat [CONS] Routine Comment: Reason For Exam: weakness Primary care physician: PASTEUR[employer]ER Hospitalization Condition: Fair Hospital course: Discharge Diagnoses: Psychosis secondary to Bipolar/Schizophrenia. Psychiatry following. continue to optimize meds per MH, Sinus Tachycardia. Probably sec to physiologic response to agitation. HR controlled on Lopressor. Cardiology signed off. Questionable fall. Pelvic and chest x-ray negative. Cervical spine and head CT negative. Rhabdomyolysis, resolved. Hypokalemia Hypomagnesemia, DM2, new onset, A1c 12.5% Acute metabolic acidosis d/w [place] from psych and they has rescinded the 1013. She is in restraints because she ignores personal safety. d/w case Anika ceballos d/nicole into family care Disposition: DC-01 TO HOME OR SELFCARE Time spent for discharge: 35 minutes Core Measure Documentation - Palliative Care Palliative Care/ Comfort Measures: Not Applicable - Core Measures Any of the following diagnoses?: none - VTE Discharge Requirements Deep Vein Thrombosis/Pulmonary Embolism Present on Admission: No Has pt received <5 days of overlap therapy or INR<2.0: No Anticoagulant overlap therapy prescribed at discharge: No Contraindication No Overlap Therapy order at DC: Not Indicated Exam - Physical Exam Narrative exam: GEN: WDWN, NAD, Awake, Alert, confused HEENT: NCAT, EOMI, PERRL, OP Clear NECK: supple, no adenopathy, no thyromegaly, no JVD CVS/HEART: RRR, normal S1S2, pulses present bilaterally CHEST/LUNGS: CTA B, Symmetrical chest expansion, good air entry bilaterally GI/Abdomen: soft, NTND, good bowel sounds, no guarding or rebound /Bladder: no suprapubic tenderness, no CVA or paraspinal tenderness EXT/Skin: no c/c/e, no obvious rash MSK: FROM x 4 Neuro: CN 2-12 grossly intact, no new focal deficits Psych: anxious, doesn't follow commands most of time, difficult to re-direct - Constitutional Vitals: Temp Pulse Resp BP Pulse Ox 98.3 F 82 18 115/76 94 02/17/18 10:46 02/17/18 10:46 02/17/18 10:46 02/17/18 10:46 02/17/18 10:46 Plan Activity: up only with assistance, fall precautions, other (no strenous activity ) Diet: advance as tolerated Follow up with: PRIMARY CARE, [Primary Care Provider] - 3-5 Days ANGEL MENDEZ MD [Staff Physician] - 7 Days ALENA QUINTEROS MD [Staff Physician] - 7 Days Prescriptions: Haloperidol [Haldol] 15 mg PO QHS #30 tablet Insulin Glargine [Lantus VIAL] 20 units SUB-Q QHS #1 vial Haloperidol [Haldol] 10 mg PO QAM #30 tablet Lispro Insulin [Humalog] 1 dose SUB-Q ACHS PRN #1 vial PRN Reason: Hyperglycemia LORazepam [Ativan] 0.5 mg PO BID #60 tablet Metoprolol [Lopressor TAB] 50 mg PO BID #60 tablet Potassium Chloride 10 meq PO BID #60 capsule.er
[2018-02-17 18:41] VITALS: BP 123/79
--- NOTE | 2018-02-17 19:34 | Progress Note ---
Subjective - Reason for Consult Consult date: 02/17/18 Reason for consult: follow up - Chief Complaint Chief complaint: "Hi" Patient is a 57-year-old female that presents to the emergency department from [place] for a general medical evaluation. Today the patient is calm during the assessment and states she is tired of being in the hospital. The patient is in a waist restraint. She denies SI/HI's and AVH's. No indication of side effects of her medications. She has been eating all her meals. MSE: Appearance: calm, cooperative Behavior: regular eye contact/cries intermittently Speech: regular rate and tone Mood: "okay" Affect: congruent to mood Thought Process: circumstantial Thought Content: denies SI/HI's and AVH Motor Activity: sitting up in bed in waist restraint Cognition: A/O x3 Insight: fair Judgment: variable Assessment and Plan Impression: Unspecified Psychosis. Today the patient is calm during the assessment. The patient's mental status has improved. The patient's psychosis has resolved. DDx: Bipolar DO with psychosis, Schizophrenia Recommendation/Plan: The patient's 1013 and was not extended. Continue Haldol 10 mg PO QAM, Haldol 15 mg PO HS, and Ativan 0.5 mg PO BID for anxiety. The patient can follow up with [facility] for outpatient psy services. Psychiatry sign off Mental Status Exam - Vital signs Last Vital Signs Temp 98.0 F 02/17/18 18:07 Pulse 72 02/17/18 18:07 Resp 20 02/17/18 18:07 BP 123/79 02/17/18 18:07 Pulse Ox 96 02/17/18 18:07
[2018-02-17] MEDS: LANTUS SUB-Q SCH (22:11)
== END 2018-02-17 22:30 | disposition home or self-care (01) | DRG 558 ==
LOC: ED 17:28 → EEVIPCON 22:30 → 4A 22:30 → 3A 02-02 18:03
PROVIDERS: ADMIT Internal Medicine; ATTEND Internal Medicine
DX: M62.82 Rhabdomyolysis (principal); E87.2 Acidosis; E87.6 Hypokalemia; W18.39XA Other fall on same level, initial encounter; R00.0 Tachycardia, unspecified; F20.9 Schizophrenia, unspecified; F31.9 Bipolar disorder, unspecified; E83.42 Hypomagnesemia; E11.65 Type 2 diabetes mellitus with hyperglycemia; Z88.0 Allergy status to penicillin; Y93.89 Activity, other specified; Y92.89 Other specified places as the place of occurrence of the external cause; Y99.8 Other external cause status
CPT/HCPCS: 36415; 70450; 71045; 72125; 72170; 80048; 80053; 80307; 81001; 82550; 82962; 83036; 83735; 84443; 84484; 85025; 85027; 93005; 93010; 93306; 96360; 96372; J0360; J1630; J1650; J1815; J2060; J3480; J7030